=== PATIENT | female | born 1990 | race African-American/Black ===

== ENCOUNTER 2021-03-25 10:59 | Inpatient (IN) | payer OTHER, SELFPAY ==
[2021-03-25] VITALS (7 sets, daily range): BP systolic 105–149; BP diastolic 73–81; PULSE 88–118; RESP 16–20; TEMP 37.1–37.9; O2SAT 99–100; BMI 31.7
--- NOTE | ~2021-03-25 | US_ITS ---
EXAMINATION: US carotid duplex BI DATE: 03/25/2021 18:12 INDICATION: Altered mental status TECHNIQUE: Grayscale, color Doppler, and pulsed Doppler images of the cervical carotid arteries were obtained. The degree of vessel stenosis is placed in one of the following categories: normal, <50%, 5 0-69%, >=70% but less than near-occlusion, near-occlusion, or total occlusion. Note that percent sten osis relative to normal distal artery lumen diameter is indirectly measured from velocity measurement s as described by Cayden, et al. Radiology 2003; [id number]. COMPARISON: None. FINDINGS: The examination is essentially nondiagnostic due to patient inability to cooperate for imag e acquisition. RIGHT: The right common carotid artery (CCA) peak systolic velocity (PSV) is 111.6 cm/s. The right internal carotid artery, right ICA end-diastolic velocity (EDV), and right ICA/CCA PSV ratio are not measured. The external carotid artery (ECA) PSV is 102.3 cm/s. There is antegrade flow in the right vertebral artery. LEFT: The left CCA PSV is 191.9 cm/s. The right internal carotid artery, right ICA end-diastolic velocity ( EDV), and right ICA/CCA PSV ratio are not measured. The ECA PSV is 148 cm/s. There is antegrade flow in the left vertebral artery. IMPRESSION: Incomplete examination due to patient's inability to cooperate for image acquisition. Reviewed, dictated and finalized at location A. IMPRESSION: Incomplete examination due to patient's inability to cooperate for image acquis ition.
--- NOTE | ~2021-03-25 | XR_ITS ---
EXAMINATION: XR abdomen NG/feed tube insert INDICATION: Nasogastric tube placement TECHNIQUE: Portable AP KUB-[id number] at 1354 hours COMPARISON: CT, 03/26/2021 FINDINGS: The nasogastric tube is in the stomach. No airspace opacities are identified in the lungs. A cardiac monitoring device is implanted in the left chest wall. The bowel gas pattern is nonspecific . IMPRESSION: 1. Nasogastric tube in the stomach. Reviewed, dictated and finalized at location A.
--- NOTE | ~2021-03-25 | XR_ITS ---
EXAMINATION: XR chest 1V portable DATE: 04/02/2021 10:49 INDICATION: Tachycardia. TECHNIQUE: A single frontal view of the chest was obtained. COMPARISON: Chest CT 03/26/2021 FINDINGS: The chest demonstrates clear lungs without pneumonia, pleural effusion, or pneumothorax. Th e heart size is normal. There is an electronic implant in left anterior chest wall. There is a surgic al clip in right abdomen. IMPRESSION: 1. No acute cardiopulmonary disease. Reviewed, dictated and finalized at location A.
--- NOTE | ~2021-03-25 | US_ITS ---
EXAMINATION: US renal BI DATE: 03/25/2021 18:12 INDICATION: Worsening renal failure TECHNIQUE: Multiple grayscale and Doppler ultrasound images of the kidneys were obtained. COMPARISON: None. FINDINGS: There is limited visualization of the kidneys. The right kidney measures 7.8 x 4.4 x 4.1 cm . The left kidney measures 8.3 x 5.3 x 4.4 cm. The kidneys demonstrate normal parenchymal echogenicit y. There is no hydronephrosis. The bladder is decompressed by Thayer catheter. IMPRESSION: 1. Normal kidneys without hydronephrosis, limited examination. Reviewed, dictated and finalized at location A.
--- NOTE | ~2021-03-25 | NM_ITS ---
EXAMINATION: NM renal flow and function DATE: 03/28/2021 16:27 INDICATION: Acute kidney injury. TECHNIQUE: 6.6 mCi Tc-99m MAG3 was administered IV. The patient was scanned in the supine position. A posterior abdominal radionuclide angiogram was obtained. A subsequent time course of static images of the kidneys, ureters, and bladder was obtained. COMPARISON: CT abdomen and pelvis 03/26/2021 FINDINGS: The posterior abdominal radionuclide angiogram and sequential static images show normal siz e, position, and morphology of the kidneys. Peak renal parenchymal uptake was 6 min in right kidney a nd 6 min in left kidney (normal peak 3-5 minutes). The relative early renal uptake was 52% on the ri ght and 48% on the left (<40% is abnormal). No abnormalities of the ureters or bladder are seen. T1/2 for clearance of activity from the right kidney and proximal collecting system was >20 minutes. T1/2 for clearance of activity from the left kidney and proximal collecting system was >20 minutes. IMPRESSION: 1. Symmetric kidney function. 2. Delayed contrast clearance from both kidneys, consistent with decreased renal function. Reviewed, dictated and finalized at location B. IMPRESSION: 1. Symmetric kidney function. 2. Delayed contrast clearance from both kidneys, consistent with decreased ariadne al function.
--- NOTE | ~2021-03-25 | XR_ITS ---
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 TECHNIQUE: The procedure including the risks and benefits was discussed with the patient's grandmothe Silvia elizalde who provided consent for the procedure. Risks discussed included spinal headache, cereb rospinal fluid leak, bleeding, and infection. A timeout was performed to verify the patient's name, date of , and procedure to be performed. The skin overlying the L4-L5 level was prepped and dr aped in usual sterile fashion. Subcutaneous 1% lidocaine was used for local anesthesia. A 22 gauge spinal needle was advanced under fluoroscopic guidance. The needle was removed and the entry site was cleaned and dressed. There were no immediate complications. The patient was taken to the nursing ar moises for observation. FINDINGS: Real-time fluoroscopy demonstrates the needle at the L4-L5 level. Opening pressure was 13 c m water. (Normal range is variably defined as 6-20 cm water and up to 25 cm water in obese patients. Pressure >25 cm water is one of the modified Dandy criteria for idiopathic intracranial hypertension) . 15 mL of clear, colorless fluid was collected in 4 tubes. IMPRESSION: 1. Successful fluoro-guided lumbar puncture. Reviewed, dictated and finalized at location A.
--- NOTE | ~2021-03-25 | CT_ITS ---
EXAMINATION: CT chest abdomen pelvis wo con DATE: 03/26/2021 13:29 INDICATION: Altered mental status and nonverbal patient with pain response during physical exam of th e chest, abdomen and pelvis. TECHNIQUE: Computed tomography (CT) of the chest, abdomen, and pelvis was performed without intraveno us contrast. Iterative made to dose Yfn Automated exposure control and iterative reconstruction technique were employed. The dose-length product was 1752.75 mGy-cm. COMPARISON: None FINDINGS: CHEST CT: A couple small nodular opacity right lower lobe evaluation of which is limited by respiratory motion which limits evaluation of fine pulmonary parenchymal detail. No pulmonary edema, pleural effusion or pneumothorax. Heart size is normal. No pericardial effusion. Thoracic aorta is normal in caliber. No pathologically enlarged thoracic lymphadenopathy. Bones are unremarkable. ABDOMEN/PELVIS CT: Liver, gallbladder, spleen, pancreas, bilateral adrenal glands and kidneys are normal within the near ly decompressed bladder. Bowels including the appendix are normal. Thayer catheter within the nearly d ecompressed bladder which demonstrates some mild wall thickening. Anteverted uterus and bilateral adn exa are unremarkable. Very small amount of ascites in the deep pelvis. There is asymmetric mild thick ening of the left psoas muscle with some stranding in the immediately surrounding retroperitoneal fat . Bones are unremarkable. IMPRESSION: 1. Asymmetric thickening of the left psoas muscle with inflammatory stranding in the immediately cody cent lower abdominal/pelvic left retroperitoneal fat. Differential would include intramuscular hemato ma or abscess in the appropriate clinical setting. Evaluation is however limited by absence of intrav enous contrast. 2. A couple small nodular opacities dilation which is limited by respiratory motion. This could repre sent atelectasis or other nonspecific infectious or inflammatory process. Malignancy unlikely given p atient age. 3. Mild wall thickening in the partially decompressed bladder which contains a Thayer catheter. Correl ate with urinalysis to exclude urinary tract infection/cystitis. Reviewed, dictated and finalized at location A. IMPRESSION: 1. Asymmetric thickening of the left psoas muscle with inflammatory stranding i n the immediately adjacent lower abdominal/pelvic left retroperitoneal fat. Dif ferential would include intramuscular hematoma or abscess in the appropriate cl inical setting. Evaluation is however limited by absence of intravenous contras t. 2. A couple small nodular opacities dilation which is limited by respiratory mo tion. This could represent atelectasis or other nonspecific infectious or infla mmatory process. Malignancy unlikely given patient age. 3. Mild wall thickening in the partially decompressed bladder which contains a Thayer catheter. Correlate with urinalysis to exclude urinary tract infection/cy stitis.
--- NOTE | ~2021-03-25 | CT_ITS ---
EXAMINATION: CT brain wo con DATE: 03/25/2021 11:35 INDICATION: Altered mental status. History of moyamoya. TECHNIQUE: Computed tomography (CT) of the head was performed without intravenous contrast. The mA wa s adjusted according to patient size. Iterative reconstruction technique was employed. Exam dose: 60 5.33 mGy-cm total exam DLP. COMPARISON: None FINDINGS: Bilateral cerebrovascular infarcts involving the left frontal and right frontal parietal oc cipital areas. Chronic left thalamic lacunar infarct. Chronic right periventricular lacunar infarctio n. No intracranial mass lesion or hemorrhage is evident. No midline shift or mass effect. No subdural or epidural hematoma. Mucous retention cyst or polyp along the lateral wall of the right maxillary sinus. The paranasal sin uses and mastoid air cells otherwise are unremarkable. No fracture or bone destruction of the cranial vault. IMPRESSION: Bilateral cerebral infarcts, right greater than left No acute intracranial finding Reviewed, dictated and finalized at Location A. Reviewed, dictated and finalized at location B.
--- NOTE | ~2021-03-25 | US_ITS ---
EXAMINATION: US retroperitoneal comp DATE: 04/05/2021 12:38 INDICATION: Renal failure. TECHNIQUE: Multiple ultrasound grayscale images of the kidneys were obtained. COMPARISON: CT abdomen and pelvis 03/26/2021 FINDINGS: The right kidney measures 9.9 x 4.0 x 4.7 cm. The left kidney measures 10.7 x 4.4 x 4.4 cm. The kidne ys demonstrate normal parenchymal echogenicity. There is no hydronephrosis. The bladder is decompress ed by a Thayer catheter. IMPRESSION: 1. Normal kidneys. No hydronephrosis. Reviewed, dictated and finalized at location A.
--- NOTE | ~2021-03-25 | MR_ITS ---
EXAMINATION: MR brain/brain stem wo con DATE: 03/27/2021 10:52 INDICATION: Stroke. Moyamoya. Central nervous system infection. TECHNIQUE: Magnetic resonance imaging (MRI) of the brain and brainstem was performed without intraven ous contrast. Sequences included sagittal and axial T1-weighted SE, axial diffusion-weighted FS SE, a xial T2*-weighted GRE, axial T2-weighted FLAIR, and axial T2-weighted FSE. Apparent diffusion coeffic ient (ADC) maps were created. COMPARISON: CT dated 03/25/2021 FINDINGS: Multiple small regions of restricted diffusion aspect of the lentiform nucleus. Consistent with acute infarct in the paramedian left frontal lobe and arnold radiata as well as the head of the left cauda te nucleus and adjacent anterior limb of the left internal capsule and anterior left basal ganglia. E ncephalomalacia associated with distal chronic infarcts in the bilateral frontal and right parietal a nd occipital lobes. The distribution involving primarily the watershed zones would be consistent with given history of moyamoya disease. Additional small old lacunar infarcts at the right cerebellar hem isphere and at the left thalamus. No intracranial hemorrhage or abnormal intracranial mass lesion. Th ere are scattered areas of nonspecific increased T2-weighted signal intensity in the cerebral white m atter, predominantly involving the deep and periventricular white matter. There are no intraparenchym al signal abnormalities seen on the other pulse sequences. The ventricles are symmetric and normal in size. There are no abnormal extra-axial fluid collections. Flow voids are seen in the cerebral arter ies on the T2-weighted sequences consistent with their expected patency. Mucous retention cyst in the right maxillary sinus. Visualized orbits and soft tissues are unremarkable. IMPRESSION: 1. Multiple small acute infarction the left frontal lobe and basal ganglia. 2. Encephalomalacia consistent with additional chronic infarcts in the right cerebellar hemisphere, l eft thalamus and left frontal and right frontal, parietal and occipital lobes. Reviewed, dictated and finalized at location A. IMPRESSION: 1. Multiple small acute infarction the left frontal lobe and basal ganglia. 2. Encephalomalacia consistent with additional chronic infarcts in the right ce rebellar hemisphere, left thalamus and left frontal and right frontal, parietal and occipital lobes.
[2021-03-25 11:09] LABS: Glucose Point of Care 89 mg/dl (65-105)
--- NOTE | 2021-03-25 11:10 | PC.NURSE ---
Accuheck 89. Pt opens eyes to speech, withdraws from pain, moans and contracts. Arrives with Thayer catheter, urine in tube appears cloudy and thick. Pt is diaphoretic, afebrile
[2021-03-25 11:58] LABS: Basophils Percent Auto 0.2 % (0.2-1.2); Eosinophils Percent Auto 0.1 % (0-4.4); Hematocrit 29.8 % (37.0-47.0); Hemoglobin 9.5 g/dL (12.0-15.0); Immature Granulocyte Absolute 0.07 K/mm3 (0.00-0.031); Immature Granulocyte Percent A 0.5 % (0-0.5); Lymphocytes Absolute Auto 2.52 K/mm3 (0.9-3.2); Lymphocytes Percent Auto 18.8 % (18.3-44.2); Mean Corpuscular HGB Conc 31.9 g/dl (32-36); Mean Corpuscular Hemoglobin 28.8 pg (26-34); Mean Corpuscular Volume 90.3 fl (80-100); Mean Platelet Volume 9.7 fl (7.4-10.4); Monocytes Absolute Auto 0.7 K/mm3 (0.1-0.6); Monocytes Percent Auto 4.9 % (2.6-8.5); Neutrophils Absolute Auto 10.1 K/mm3 (1.3-6.7); Neutrophils Percent Auto 75.5 % (45.5-73.1); Platelet Count Result 395 k/mm3 (150-375); Red Cell Distribution Width 13.5 % (11.5-14.5); White Blood Count 13.4 K/mm3 (4.5-10.0)
[2021-03-25 12:08] LABS: Alanine Aminotransferase 30 U/L (4-35); Alkaline Phosphatase 98 U/L (38-126); Anion Gap 7 mmol/L (8-16); Aspartate Amino Transferase 43 U/L (14-36); Bilirubin,Total 0.2 mg/dL (0.2-1.3); Blood Urea Nitrogen 39 mg/dL (7-17); Calcium 9.2 mg/dL (8.4-10.2); Carbon Dioxide 17 mmol/L (22-30); Chloride 114 mmol/L (98-107); Estimated Glomerular Filt Rate 16; Glucose 90 mg/dL (65-105); Potassium 4.7 mmol/L (3.4-5.0); Sodium 138 mmol/L (137-145)
[2021-03-25 12:09] LABS: Prothrombin Time 13.9 Seconds (11.1-14.7)
[2021-03-25 12:59] LABS: Add Urine Microscopic? YES; Appearance Urine Cloudy (Clear); Bacteria Urine Trace /hpf; Bilirubin Urine Negative (Negative); Blood Urine 2+ (Negative); Color Urine Yellow (Yellow); Glucose Urine UA 1+ mg/dL (Negative); Ketones Urine Trace mg/dL (Negative); Leukocyte Esterase Ur Negative LEU/UL (Negative); Mucus Urine Rare /lpf; Nitrate Urine Negative (Negative); Protein Urine 3+ mg/dL (Negative); Specific Grav Ur 1.025 (1.001-1.035); Squamous Epithelial Cell Urine Occasional /hpf (Few); Urobilinogen Urine Negative mg/dL (<2.0); WBC Urine 16-20 /hpf
[2021-03-25 13:26] LABS: Glucose Point of Care 108 mg/dl (65-105)
--- NOTE | 2021-03-25 14:14 | ED.AMS ---
HPI - Altered Mental Status General Chief Complaint: Altered Mental Status Stated Complaint: altered Time Seen by Provider: 03/25/21 11:15 Source: patient Mode of arrival: EMS Limitations: no limitations History of Present Illness HPI narrative: 30[facility] with a history of CVA secondary moyamoya disease, CKD was [facility] a [facility] with altered mental status as per the [facility] patient is usually alert communicative but since this morning she was found to be altered. Patient is unable to answer any questions. complaint: altered mental status Onset (ago): day(s) (1) Timing confirmed by: caregiver Related Data Allergies Allergy/AdvReac Type Severity Reaction Status Date / Time peanut Allergy Unknown Verified 03/25/21 11:10 Review of Systems Review of Systems: ROS unobtainable: Yes unobtainable due to mental status Exam Narrative: Exam Narrative: GENERAL: ill-appearing, well-nourished, diaphoretic HEAD: Normocephalic, atraumatic. EYES: PERRLA and EOMI. ENT: Nares clear, no rhinorrhea or epistaxis. Mucous membranes moist. NECK: Supple. CHEST: Clear to auscultation. No respiratory distress. HEART: Regular rate and rhythm. No murmur heard. Normal peripheral pulses. ABDOMEN: Soft, nontender, nondistended, normal active bowel sounds. EXTREMITIES: Normal range of motion. No edema. SKIN: Warm, dry, no rash. NEURO:has hemipresis . PSYCH: Normal mood and affect. Course Course Emergency Course: We did call the [facility] and obtain baseline history from the [facility] staff although they tell us that patient is communicative but she is nonambulatory. Do not have any old records to compare or to get history. I discussed with Jessica the nurse practitioner will admit her and have neuro evaluate her for possible stroke Vital Signs Vital signs: Vital Signs Temperature 37.1 C 03/25/21 10:57 Pulse Rate 90 03/25/21 10:57 Respiratory Rate 20 03/25/21 10:57 Blood Pressure 125/78 03/25/21 10:57 Pulse Oximetry 100 03/25/21 10:57 Temperature 37.3 C 03/25/21 13:30 Pulse Rate 95 03/25/21 14:24 Respiratory Rate 19 03/25/21 14:24 Blood Pressure 105/73 03/25/21 14:24 Pulse Oximetry 100 03/25/21 14:24 MDM - Altered Mental Status Lab Data Result diagrams: 03/25/21 11:50 03/25/21 11:50 Labs: Lab Results 03/25/21 03/25/21 03/25/21 Range/Units 11:06 11:50 11:50 WBC 13.4 H (4.5-10.0) K/mm3 RBC 3.30 L (4.2-5.4) M/mm3 Hgb 9.5 L (12.0-15.0) g/dL Hct 29.8 L (37.0-47.0) % MCV 90.3 (80-100) fl MCH 28.8 (26-34) pg MCHC 31.9 L (32-36) g/dl RDW 13.5 (11.5-14.5) % Plt Count 395 H (150-375) k/mm3 MPV 9.7 (7.4-10.4) fl Immature Gran % (Auto) 0.5 (0-0.5) % Neut % (Auto) 75.5 H (45.5-73.1) % Lymph % (Auto) 18.8 (18.3-44.2) % [place] % (Auto) 4.9 (2.6-8.5) % Eos % (Auto) 0.1 (0-4.4) % Baso % (Auto) 0.2 (0.2-1.2) % Lymph # (Auto) 2.52 (0.9-3.2) K/mm3 [place] # (Auto) 0.7 H (0.1-0.6) K/mm3 Eos # (Auto) 0.0 (0-0.3) K/mm3 Baso # (Auto) 0.0 (0.0-0.1) K/mm3 Abs Immat Gran (auto) 0.07 H (0.00-0.031) K/mm3 Absolute Neuts (auto) 10.1 H (1.3-6.7) K/mm3 Absolute Nucleated RBC 0.0 (0.0-0.012) K/mm3 Nucleated RBC % 0.0 (0.0-0.2) % PT 13.9 (11.1-14.7) Seconds INR 1.0 Sodium (137-145) mmol/L Potassium (3.4-5.0) mmol/L Chloride (98-107) mmol/L Carbon Dioxide (22-30) mmol/L Anion Gap (8-16) mmol/L BUN (7-17) mg/dL Creatinine (0.7-1.0) mg/dL Estim Creat Clear Calc Estimated GFR (59 - ) Glucose (65-105) mg/dL POC Capillary Glucose 89 (65-105) mg/dl Calcium (8.4-10.2) mg/dL Total Bilirubin (0.2-1.3) mg/dL AST (14-36) U/L ALT (4-35) U/L Alkaline Phosphatase (38-126) U/L Total Protein (6.3-8.2) g/dL Albumin (3.5-5.1) g/dL Urine Color (Yellow)
--- NOTE | 2021-03-25 14:28 | ECG_ITS ---
Measurements Intervals [place] Rate: 89 P: 59 MA: 169 QRS: 34 QRSD: 93 T: 17 QT: 384 QTc: 469 Interpretive Statements SINUS RHYTHM BASELINE ARTIFACT- II, III, AVF, V3-V6 NORMAL ECG Electronically Signed On 03-25-2021 14:36:55 CDT by Moiz Singh D.O.
[2021-03-25] MEDS: SODIUM CHLORIDE 0.9% IV 1,000 ML 125 ML IV CONT (15:56)
--- NOTE | 2021-03-25 16:30 | ADMGEN ---
This patient, Jorge Alberto Saldaña, was admitted to Medical Room 349-01. Patient/family oriented to hospital policies and general routines including ID bracelet, bed and alarms, visiting hours, pain management, procedures, bathroom and other care routines, personal items, smoking policy, room service/diet, and visiting hours. Information on how to activate the Rapid Response Team has been discussed. Patient/Family are encouraged to report perceived risks to care and to ask questions if they do not understand what they are told or what they should do.
--- NOTE | 2021-03-25 16:42 | PM.IMHP ---
H&P: HPI History of Present Illness Date/Time: 03/25/21 16:42 this is a 30-year-old female patient from [facility] with the past medical history of a CVA with left side it hemo plegia. The patient is typically alert and orientated x4 according to the correction. Today she is nonverbal and she is yelling out loudly. She is very anxious and tachycardic. Patient is also diaphoretic. Her blood sugar was checked and she was in the 100s. CT of the brain was read as bilateral cerebral infarcts, right greater than the left. No acute intracranial finding. Left arm and leg or flaccid. Patient has limited movement to her right arm and right leg. She typically takes an aspirin at the correction. White count 13.4. H&H is 9.5 and 29.8. Patient's BUN is 39 creatinine is 4.10 GFR 16. The patient is nonverbal some unable to obtain any information. I am reviewing her records from [facility]. Patient creatinine from yesterday was 3.0 from the correction in BUN 33. It looks like her GFR was 22 there at the correction. Her A1c from yesterday was 8.1. The patient is being admitted to inpatient services on the date of service of 03/25/2021 Chief Complaint: Altered mental status Review of Systems Review of Systems: ROS unobtainable: Yes unobtainable due to mental status PMFSH Past Medical History Medical History (Updated 03/25/21 @ 17:23 by Jessica Freire NP) Chronic kidney disease Depression Finger amputation, no complication History of CVA (cerebrovascular accident) Hypertension Insulin dependent diabetes mellitus Last hemoglobin A1c 8.1 Moyamoya disease Family History Family History (Updated 03/25/21 @ 17:24 by Jessica Freire NP) Mother Diabetes mellitus ESRD (end stage renal disease) Social History Social History (Updated 03/25/21 @ 17:02 by Jessica Freire NP) Social History: The patient [facility]. Silvia zapata is listed as her advance directive healthcare proxy. The patient is listed as a full code. She is disabled. She is single never . No children. Smoking status is unknown. Meds Home Medications and Allergies Allergies Allergy/AdvReac Type Severity Reaction Status Date / Time peanut Allergy Unknown Verified 03/25/21 11:10 Vital Signs Vital Signs - 24 hr 03/25/21 10:57 03/25/21 12:42 03/25/21 13:30 Temperature 37.1 C 37.3 C Pulse Rate 90 88 98 Respiratory Rate 20 17 16 Blood Pressure 125/78 117/77 120/81 Pulse Oximetry 100 100 99 03/25/21 14:24 Temperature Pulse Rate 95 Respiratory Rate 19 Blood Pressure 105/73 Pulse Oximetry 100 Exam Const: General: cooperative, alert, awake, Physically active and anxious Nutritional Appearance: overweight Orientation/consciousness: confusion Limitations: altered mental status HENMT: Head: normal to inspection, No palpable skull fracture present, normocephalic and atraumatic Ears: hearing grossly normal bilaterally and external ears normal General nose exam: Normal external nose present Eyes: General: appearance normal, both eyes and all related structures Alignment and Position: alignment normal Periorbital: periorbital findings normal Eyelids: eyelids normal Conjunctivae: conjunctivae normal Sclera: sclerae normal Cornea: corneas normal Pupils: Equal, round and reactive pupils present Neck: Neck: normal visual inspection Resp: Effort & Inspection: normal respiratory effort Auscultation: clear to auscultation bilaterally Cardio: Palpation: normal PMI Rate: regular rate Rhythm: regular rhythm Heart sounds: S1 normal heart sound present and S2 normal heart sound present Peripheral pulses: Peripheral pulses 2+ throughout GI: Inspection: normal to inspection Percussion: Yes normal to percussion Auscultation: normal bowel sounds Rectal Exam: deferred Skin: General skin exam: normal color Lesions: no lesions Rashes: no rashes Trauma: no lacerations
--- NOTE | 2021-03-25 18:31 | PM.CNNEP ---
Assessment and Plan Assessment and plan (1) Chronic kidney disease: Code(s): N18.9 - Chronic kidney disease, unspecified Status: Chronic Assessment and Plan: this patient has a diagnosis of chronic kidney disease stage IIIB. We do not have any old records but this is going by the problem list in the [facility] records. Her ultrasound looks fine. I am not sure if her creatinine is higher than her baseline. I would guess that it is since her GFR here is 16 and her baseline GFR should be somewhere between 30 and 45. It is possible that she is dehydrated because she would have poor intake from her strokes. Her chest x-ray is clear. Her blood pressure is well controlled. She might have rhabdomyolysis so will check a CPK. She could have some vascular issues in her renal arteries because of her moyamoya disease. she does have a mildly high AST but this is nonspecific. she could have obstruction so an ultrasound is being checked. We will check a renal scan. She just got an ultrasound of the kidneys. Will check urine electrolytes and eosinophils. I am going to try giving her some IV fluids. We will see how her creatinine is in the morning. (2) Hypertension: Code(s): I10 - Essential (primary) hypertension Status: Chronic Assessment and Plan: Her blood pressure is well controlled (3) History of CVA (cerebrovascular accident): Code(s): Z86.73 - Personal history of transient ischemic attack (TIA), and cerebral infarction without residual deficits Status: Inactive Assessment and Plan: she has new left-sided weakness and several strokes on her CT scan (4) Moyamoya disease: Code(s): I67.5 - Moyamoya disease Status: Chronic Assessment and Plan: this involves her carotid arteries and possibly other arteries. (5) Insulin dependent diabetes mellitus: Status: Chronic Assessment and Plan: Per hospitalist. History of Present Illness Reason for Consult Consult date: 03/25/21 Chief Complaint Chief complaint: ALTERED MENTAL STATUS History of Present Illness Narrative: Jorge Alberto Is an unfortunate 30-year-old lady who has moyamoya disease, chronic kidney disease, depression, finger amputation, strokes, hypertension, diabetes. [facility]. While there the patient was found to have left-sided weakness and decreased level of consciousness. She was sent to the emergency room and evaluated. She was found to have another stroke. She still does not interact now. the patient was found to have a higher creatinine than usual. it is unknown what her baseline creatinine is but the diagnosis list at the halfway Shows CKD stage IIIB. yesterday her creatinine was 3.0 at the halfway. She cannot give a history. There is no mention of urinary issues. there was no medicine list that came from the halfway. In the ER her blood pressure was fine. Her renal ultrasound shows normal kidneys without hydronephrosis. CT of the head shows bilateral infarcts, right greater than left. Her CBC shows mild anemia. Her urinalysis shows protein glucose and blood, and her chemistry show high BUN creatinine and low bicarbonate with a normal anion gap. Review of Systems Review of Systems: ROS unobtainable: Yes unobtainable due to mental status PMF Past Medical History Medical History (Updated 03/25/21 @ 18:42 by Crow Lomeli MD) Chronic kidney disease Depression Finger amputation, no complication History of CVA (cerebrovascular accident) Hypertension Insulin dependent diabetes mellitus Last hemoglobin A1c 8.1 Moyamoya disease Family History Family History Mother Diabetes mellitus ESRD (end stage renal disease) Social History Social History Social History: T
[2021-03-25] MEDS: SODIUM BICARBONATE 8.4% 150 MEQ in WATER, STERILE FOR INJECTION 950 ML 75 MEQ IV CONT (19:26)
[2021-03-25 20:17] LABS: Creatine Kinase 1343 U/L (30-135)
[2021-03-25 21:20] LABS: Eosinophil Urine Rare % (None Seen)
[2021-03-25 21:52] LABS: Creatinine Urine 222.2 mg/dL
[2021-03-25 22:30] LABS: Sodium Urine Random 45 meq/L
[2021-03-25 22:31] LABS: Total Protein Urine Random > 600 mg/dL
[2021-03-25] MEDS: LORazepam INJ (*CRX) 2 MG/ML VIAL 0.5 MG IV PUSH (22:42)
[2021-03-25] MEDS: MORPHINE SULFATE (*CRX) 2 MG/ML INJ IV PUSH (22:43)
[2021-03-25 23:14] LABS: Glucose Point of Care 96 mg/dl (65-105)
[2021-03-26] VITALS (12 sets, daily range): BP systolic 158–175; BP diastolic 76–83; PULSE 89–150; RESP 18–26; TEMP 36.1–36.9; O2SAT 94–100
--- NOTE | 2021-03-26 | ECHO_ITS ---
Patient Info Name: Jorge Alberto Saldaña Age: 30 years : 1990 Gender: Female Ht: 67 in Wt: 208 lbs BSA: 2.14 m2 HR: 98 bpm BP: 162 / 82 mmHg Heart Rhythm: Sinus Rhythm Technical Quality: Good Exam Date: 03/26/2021 8:27 AM Exam Location: [facility] Pulmonary Exam Room: 349 Patient Status: Inpatient Admit Date: 03/25/2021 Staff Ordering Physician: Jessica Freire NP Switch Operator: Shannon Ruiz RDCS Attending Provider: Ana Luisa Mathews MD Referring Physician: Mouna CARTAGENA; Exam Type: CA echo doppler color flow Study Info Indications - HXO CVA Complete two-dimensional, color flow and Doppler transthoracic echocardiogram is performed. Summary 1. Complete two-dimensional, color flow and Doppler transthoracic echocardiogram is performed. 2. There is trace mitral valve regurgitation. 3. Otherwise normal examination. 4. No likely cardioembolic source was identified. Left Ventricle Left ventricular chamber dimension is normal. Left ventricular systolic function is normal, estimated at 65-70%. The left ventricular diastolic function is normal. Right Ventricle Right ventricular chamber dimension is normal. Left Atria Left atrial chamber dimension is normal. Right Atria Right atrial chamber dimension is normal. Aortic Valve The aortic valve is normal. Pulmonic Valve The pulmonic valve is normal. Mitral Valve The mitral valve has normal leaflets. There is trace mitral valve regurgitation. Tricuspid Valve The tricuspid valve leaflets are normal. Pericardium/Pleural The pericardium appears normal. Aorta The aortic root size at the sinus of Valsalva is normal. Left Ventricular Outflow Tract Name Value Normal LVOT 2D LVOT Diameter 2.0 cm LVOT Doppler LVOT Peak Gradient 6 mmHg LVOT Mean Gradient 3 mmHg LVOT VTI 24 cm LVOT VTI/AV VTI Ratio 0.9 LVOT Stroke Volume 77 ml LVOT CO 15.9 l/min LVOT CI 7.4 l/min/m2 Pulmonic Valve Name Value Normal PV Doppler PV Peak Gradient 4 mmHg Mitral Valve Name Value Normal MV Doppler MV Decel Pitkin 944 cm/s2 MV PHT 40 ms MV Area (PHT) 5.5 cm2 4.0-5.0 MV Diastolic Function MV E Peak Velocity 131 cm/s
[2021-03-26] MEDS: LABETALOL HCL INJ 100 MG/20 ML VIAL IV PUSH (01:12)
[2021-03-26] MEDS: LORazepam INJ (*CRX) 2 MG/ML VIAL 0.5 MG IV PUSH ×2 (01:30→05:42)
[2021-03-26] MEDS: MORPHINE SULFATE (*CRX) 2 MG/ML INJ IV PUSH ×4 (04:12→20:49)
[2021-03-26 06:32] LABS: Glucose Point of Care 102 mg/dl (65-105)
[2021-03-26 06:54] LABS: Basophils Absolute Auto 0.1 K/mm3 (0.0-0.1); Basophils Percent Auto 0.3 % (0.2-1.2); Eosinophils Percent Auto 0.1 % (0-4.4); Hemoglobin 9.3 g/dL (12.0-15.0); Immature Granulocyte Absolute 0.09 K/mm3 (0.00-0.031); Immature Granulocyte Percent A 0.6 % (0-0.5); Lymphocytes Absolute Auto 3.74 K/mm3 (0.9-3.2); Mean Corpuscular HGB Conc 32.1 g/dl (32-36); Mean Corpuscular Hemoglobin 28.4 pg (26-34); Mean Corpuscular Volume 88.4 fl (80-100); Mean Platelet Volume 10.3 fl (7.4-10.4); Monocytes Absolute Auto 1.1 K/mm3 (0.1-0.6); Monocytes Percent Auto 6.9 % (2.6-8.5); Neutrophils Absolute Auto 11.2 K/mm3 (1.3-6.7); Neutrophils Percent Auto 69.1 % (45.5-73.1); Platelet Count Result 451 k/mm3 (150-375); Red Blood Count 3.28 M/mm3 (4.2-5.4); Red Cell Distribution Width 13.5 % (11.5-14.5); White Blood Count 16.2 K/mm3 (4.5-10.0)
[2021-03-26 07:11] LABS: Anion Gap 11 mmol/L (8-16); Blood Urea Nitrogen 46 mg/dL (7-17); Carbon Dioxide 16 mmol/L (22-30); Chloride 110 mmol/L (98-107); Estimated CRCL calculation 23 ml/min; Estimated Glomerular Filt Rate 16; Glucose 102 mg/dL (65-105); Phosphorus 5.3 mg/dL (2.5-4.5); Potassium 4.4 mmol/L (3.4-5.0); Sodium 137 mmol/L (137-145)
[2021-03-26] MEDS: diazePAM INJ (*CRX) 10 MG/2 ML SYRINGE 5 MG IV PUSH ×2 (08:43→16:54)
[2021-03-26] MEDS: SODIUM BICARBONATE 8.4% 150 MEQ in WATER, STERILE FOR INJECTION 950 ML 75 MEQ IV CONT (08:49)
[2021-03-26] MEDS: ASPIRIN 300 MG SUPPOSITORY RECTAL (08:52)
--- NOTE | 2021-03-26 09:05 | PM.IMPN ---
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 I will continue with her aspirin but I will make it a rectal suppository. Neurology has been consulted. The patient is nonverbal. But the [facility] stated that the patient is usually talkative. I did speak with her grandmother juliana zapata who stated the patient is usually talkative. The patient is flaccid on the left upper and lower extremity which is old and she has limited movement to the right side now. We will follow-up with the MRI, carotid Dopplers, and an echo. PT OT and speech therapy consults have been placed. Swallow study has also been ordered as well. Will do Accu-Cheks every 6 hours with sliding scale insulin. Last A1c was noted to be 8.1. Her medications are on hold at this time she is NPO until we can get a swallow study. P.r.n. hydralazine with parameters. Her diabetes she should have lower blood pressures however she is possibly having a stroke we need to keep them at higher level. No other family members are noted to have this disease. This was diagnosed approximately a year and a half ago. I am not sure if this is related to her moyamoya ER visits related to her diabetes. Patient's last great and was 3.0 and is now 4.1. Patient's GFR son to 16 from . We will get a renal ultrasound. Looks like she is stage IV. 03/26/21 nephro note reviewed and pt w JUVENTINO on CKD 3, MRI w contrast changed to MRI brain non con, NPO at this time,. ST eval and possible NGT if mental status does not improve, Patient reported alert and oriented x3 prior to admission she is nowhere near his baseline at the time of my evaluation today. I have ordered LP in addition to MRI as she lives in a penitentiary and ENVIRONMENTAL SERVICES COORDINATOR infection is in differential. Additionally, I have ordered Keppra as she appears to be seizing which could be secondary to new CVA. cont current care. neurology contacted via telephone recommendations appreciated. patient appears to be in discomfort with palpation of the left abdomen will order CT chest abdomen pelvis as she is nonverbal at this time With tachycardia and appears to have source of pain. Subjective Date/time seen: 03/26/21 09:05 Patient remains unresponsive appears to be posturing. etiology remains unclear likely Moyamoya related CVA versus ENVIRONMENTAL SERVICES COORDINATOR infection vs seizure Exam Narrative: Exam Narrative: GEN: opens eyes but does not track And is nonverbal HEENT: NCAT, MMM, appears to have slow nystagmus Neck: no JVD Heart: S1S2 tachycardia Lungs: CTA B/l Abd: soft, ND, bowel sounds normoactive, left abdomen tender to palpation Ext: no cyanosis, no clubbing, no edema Neuro: opens eyes to voice does not follow commands appears to posture appears to be in pain but does not withdraw from noxious stimuli Psych: unable to evaluate Objective Data Vital Signs Vital Signs: Vital Signs - 24 hr 03/25/21 10:57 03/25/21 12:42 03/25/21 13:30 Temperature 98.7 F 99.2 F Pulse Rate 90 88 98 Respiratory Rate 20 17 16 Blood Pressure 125/78 117/77 120/81 Pulse Oximetry 100 100 99 03/25/21 14:24 03/25/21 20:00 03/25/21 20:10 Temperature 100.3 F H Pulse Rate 95 118 H 118 H Respiratory Rate 19 20 Blood Press
--- NOTE | 2021-03-26 10:00 | PM.PNNEP ---
Progress Note: A&P Assessment and Plan (1) Chronic kidney disease: Code(s): N18.9 - Chronic kidney disease, unspecified Status: Chronic Assessment and Plan: this patient has a diagnosis of chronic kidney disease stage IIIB Per senior care records. Her ultrasound is normal. Urinalysis has blood protein and sugar. Urine electrolytes are pre renal. Proteinuria suggests a component of diabetes affecting the kidneys. Hypertension and vascular disease are also possible. She probably has an aspect of acute kidney injury. Urine electrolytes are pre renal renal scan is ordered. CPK is mildly high. This level of CPK is generally not high enough to cause kidney disease but she does have some blood in the urine which may be spill over of the enzyme. With this in mind, will follow the CPK and she is getting bicarb any way. will continue IV fluids with bicarbonate. Check labs in the morning (2) Hypertension: Code(s): I10 - Essential (primary) hypertension Status: Chronic Assessment and Plan: Her blood pressure is well controlled this is creeping up. 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 (5) Insulin dependent diabetes mellitus: Status: Chronic Assessment and Plan: Per hospitalist. Subjective Date/time seen: 03/26/21 10:00 Interval history: patient is unchanged. Not responsive. Eyes closed. Review of Systems Review of Systems: ROS unobtainable: Yes unobtainable due to mental status Exam Narrative: Exam Narrative: WDWN in NAD skin no rash head ncat lungs clear cor reg no rub abd BS+ nontender and soft ext no edema. Objective Data Vital Signs Vital Signs: Vital Signs - 24 hr 03/25/21 10:57 03/25/21 12:42 03/25/21 13:30 Temperature 37.1 C 37.3 C Pulse Rate 90 88 98 Respiratory Rate 20 17 16 Blood Pressure 125/78 117/77 120/81 Pulse Oximetry 100 100 99 03/25/21 14:24 03/25/21 20:00 03/25/21 20:10 Temperature 37.9 C H Pulse Rate 95 118 H 118 H Respiratory Rate 19 20 Blood Pressure 105/73 149/79 H Pulse Oximetry 100 99 03/25/21 20:40 03/26/21 00:00 03/26/21 01:12 Temperature 37.3 C Pulse Rate 101 H 150 H Respiratory Rate Blood Pressure Pulse Oximetry 03/26/21 04:00 03/26/21 05:42 Temperature 36.1 C L Pulse Rate 122 H 114 H Respiratory Rate 18 Blood Pressure 158/83 H Pulse Oximetry 100 Intake/Output Intake/Output: Intake & Output 03/23/21 03/24/21 03/25/21 03/26/21 23:59 23:59 23:59 23:59 Intake Total 397 1100 Output Total 325 550 Balance 72 550 Meds/Results Medications: Active Medications Generic Name Dose Route Start Last Admin Trade Name Freq PRN Reason Stop Dose Admin Aspirin 300 mg 03/26/21 09:00 03/26/21 08:52 Aspirin 300 Mg Suppository RECTAL 300 mg DAILY RYLIE Administration Dextrose 12.5 gm 03/25/21 16:45 Dextrose 50% 25 Gm/50 Ml Syringe IV PUSH PRN PRN Hypoglycemia Protocol Diazepam 5 mg 03/26/21 09:00 03/26/21 08:43 Diazepam Inj (*Crx) 10 Mg/2 Ml Syringe IV PUSH 5 mg Q8H RYLIE Administration Glucagon 1 mg 03/25/21 16:45 Glucagon For Inj 1 Mg Vial IM PRN PRN Hypoglycemia Protocol Glucose 15 gm 03/25/21 16:45 Glucose Oral Gel 15 Gm Of Glucse In 37.5 Gm Tube PO PRN PRN Hypoglycemia Protocol Hydralazine HCl 10 mg 03/25/21 17:36 Hydralazine Hcl 20 Mg/Ml Vial IV PUSH Q8H PRN Blood Pressure - High Dextrose 1,000
--- NOTE | 2021-03-26 11:11 | PCSTNOTE ---
Attempted to see patient for communication evaluation at bedside. Patient was not alert and per RN not following directions. Discussed this with RN and physician and determined that patient not appropriate to participate in communication evaluation or MBS study this date. Plan to follow-up with patient on 03/27/21 to assess ability to participate and complete evaluations if able.
[2021-03-26 11:15] LABS: Glucose Point of Care 106 mg/dl (65-105)
--- NOTE | 2021-03-26 12:39 | PCOTNOTE ---
Hold patient this date as patient is unable to follow commands, keeps eyes closed, and is non-verbal. Will attempt OT evaluation at later time if cognition/responsiveness improves and patient is medically appropriate.
--- NOTE | 2021-03-26 13:50 | PCPTNOTE ---
Patient on hold. Nurse, care coordination, physician and OT all agree that patient status is not appropriate for therapy evaluation at this time. Will review status tomorrow.
--- NOTE | 2021-03-26 13:58 | WPDNEURCNPN ---
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 Status: Chronic (3) Hypertension: Code(s): I10 - Essential (primary) hypertension Status: Chronic (4) Insulin dependent diabetes mellitus: Status: Chronic (5) Altered mental status: Qualifiers: Altered mental status type: unspecified Qualified Code(s): R41.82 - Altered mental status, unspecified Code(s): R41.82 - Altered mental status, unspecified Status: Acute Additional Plan bihemispheric stroke underlying significant renal disease but clinical neurological examination is compatible with significant neurological deficit for the medical evaluations being carried out possibility of the extension of the stroke is always likely evaluation is being carried out for any treatable reason Consult date: 03/26/21 Time Seen: 13:00 HPI: Jorge Alberto Saldaña is a 30 [facility] being nonverbal and yelling out loud along with the tachycardia and diaphoresis a blood sugar at the time was 100s left upper and left lower extremities were flaccid with limited movements of the right upper and right lower extremity BUN was 39 creatinine 4.10 with GFR of only 16 myoglobin 9.5 her hemoglobin A1c yesterday was 8.1. Patient carries the diagnosis of left hemiplegia secondary to cerebrovascular accident in addition to the ongoing history of 1. Chronic kidney disease 2. Hypertension 3. Insulin-dependent diabetes mellitus 4. 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 pertinent investigations up until now include CBC with leukocytosis hemoglobin 9.3, platelet count 451 basic metabolic panel with BUN of 46 creatinine of 4.0 estimated GFR only 16 and phosphorus 5.3 UA abnormal with 16 to 20 WBCs 1+ glucose 3+ protein initial CT scan documented bilateral infarct involving the left frontal and right frontal parietal occipital lobes in addition to chronic left thalamic lacunar infarct and chronic right periventricular lacunar infarct but no evidence of bleed echocardiogram is being done carotid Doppler study is incomplete because of the lack of cooperation and K[place] ultrasound is with normal kidneys without hydronephrosis but the exam is limited she has already been seen by the correctional medicine physician chronic kidney disease with considering the possibility of increasing vascular problem because of underlying moyamoya disease, possible increasing dehydration Review of Systems Review of Systems: All systems reviewed & are unremarkable except as noted in HPI and below PMFSH Past Medical History Medical History Chronic kidney disease Depression Finger amputation, no complication History of CVA (cerebrovascular accident) Hypertension Insulin dependent diabetes mellitus Last hemoglobin A1c 8.1 Moyamoya disease Family History Family History Mother Diabetes mellitus ESRD (end stage renal disease) Social History Social History Social History: The patient lives at [facility]. Silvia zapata is listed as her advance directive healthcare proxy. The patient is listed as a full code. She is disabled. She is single never . No children. Smoking status is unknown. Smoking status: Never smoker Spiritual care concerns: No Meds Home Medications and Allergies Home Medications Medication Instructions Recorded Confirmed Type Adult Low Dose Aspirin 81 mg PO DAILY 03/25/21 03/25/21 History Blue-Emu Lidocaine Patch 1 patch DAILY 03/25/21 03/25/21 History Humalog U-100 Insulin 5 units SUBCUT TIDWM 03/25/21 03/25/21 History Lantus Solostar U-100 Insulin 10 units SUBCUT HS 03/25/21 03/25/21 History Miralax 17 g
[2021-03-26] MEDS: METOPROLOL TARTRATE INJ 5 MG/5 ML VIAL 2.5 MG IV PUSH (14:48)
[2021-03-26 15:09] LABS: Hematocrit 28.1 % (37.0-47.0); Hemoglobin 9.1 g/dL (12.0-15.0); Mean Corpuscular HGB Conc 32.4 g/dl (32-36); Mean Corpuscular Hemoglobin 28.6 pg (26-34); Mean Corpuscular Volume 88.4 fl (80-100); Mean Platelet Volume 9.8 fl (7.4-10.4); Platelet Count Result 420 k/mm3 (150-375); Red Blood Count 3.18 M/mm3 (4.2-5.4); Red Cell Distribution Width 13.8 % (11.5-14.5)
[2021-03-26 16:57] LABS: Glucose Point of Care 91 mg/dl (65-105)
--- NOTE | 2021-03-26 18:08 | PC.NURSE ---
Addendum entered by Jennifer Greenwood RN 03/26/21 18:47: This assessment was done at 0830. Original Note: Patient appears to be in pain with tensing of the muscles. Patients heart rate was in140's. Dr Mathews called and notified. New orders were received. Will continue to monitor patient.
--- NOTE | 2021-03-26 18:49 | PC.NURSE ---
Dr Suarez called at 1130 and given update on patient condition. Patient was given diazepam 5mg at 0843, patient then was relaxed and comfortable and heart rate was down to 90's-100's. Around 1115 patient seemed to be in pain and arms and legs would tense up when touched. VS R-26, BP 162/82 and heart bouncing between 110's-140's. New orders received. Meteporol 2.5mg and a CT of abd/pelvis.
[2021-03-26] MEDS: levETIRAcetam 500MG/NACL 100ML 500 MG/100 ML BAG 400 MG IVPB (19:07)
[2021-03-26 19:51] LABS: Creatine Kinase 2619 U/L (30-135)
[2021-03-26] MEDS: LORazepam INJ (*CRX) 2 MG/ML VIAL 1 MG IV PUSH (20:27)
[2021-03-27] VITALS (14 sets, daily range): BP systolic 142–175; BP diastolic 71–96; PULSE 100–135; RESP 16–20; TEMP 35.9–36.6; O2SAT 96–100
[2021-03-27 00:52] LABS: Glucose Point of Care 114 mg/dl (65-105)
[2021-03-27] MEDS: SODIUM BICARBONATE 8.4% 150 MEQ in WATER, STERILE FOR INJECTION 950 ML 75 MEQ IV CONT ×2 (00:59→17:41)
[2021-03-27] MEDS: MORPHINE SULFATE (*CRX) 2 MG/ML INJ IV PUSH ×5 (01:31→23:38)
[2021-03-27] MEDS: levETIRAcetam 500MG/NACL 100ML 500 MG/100 ML BAG 400 MG IVPB ×2 (05:41→17:42)
[2021-03-27 06:02] LABS: Glucose Point of Care 103 mg/dl (65-105)
[2021-03-27 08:27] LABS: Basophils Absolute Auto 0.1 K/mm3 (0.0-0.1); Basophils Percent Auto 0.3 % (0.2-1.2); Eosinophils Absolute Auto 0.1 K/mm3 (0-0.3); Eosinophils Percent Auto 0.4 % (0-4.4); Hematocrit 27.2 % (37.0-47.0); Hemoglobin 8.9 g/dL (12.0-15.0); Immature Granulocyte Absolute 0.08 K/mm3 (0.00-0.031); Immature Granulocyte Percent A 0.6 % (0-0.5); Lymphocytes Absolute Auto 2.54 K/mm3 (0.9-3.2); Lymphocytes Percent Auto 17.6 % (18.3-44.2); Mean Corpuscular HGB Conc 32.7 g/dl (32-36); Mean Corpuscular Hemoglobin 29.1 pg (26-34); Mean Corpuscular Volume 88.9 fl (80-100); Mean Platelet Volume 9.9 fl (7.4-10.4); Monocytes Absolute Auto 1.1 K/mm3 (0.1-0.6); Monocytes Percent Auto 7.7 % (2.6-8.5); Neutrophils Absolute Auto 10.6 K/mm3 (1.3-6.7); Neutrophils Percent Auto 73.4 % (45.5-73.1); Platelet Count Result 438 k/mm3 (150-375); Red Blood Count 3.06 M/mm3 (4.2-5.4); Red Cell Distribution Width 13.8 % (11.5-14.5); White Blood Count 14.4 K/mm3 (4.5-10.0)
[2021-03-27 08:33] LABS: INR 1.1; Prothrombin Time 14.6 Seconds (11.1-14.7)
[2021-03-27 08:34] LABS: Partial Thromboplastin Time 25.3 SECONDS (22.3-36.8)
[2021-03-27 08:37] LABS: Lactic Acid Reflex 0.7 mmol/L (0.7-2.1)
--- NOTE | 2021-03-27 08:39 | PCSTNOTE ---
Per RN, MBS order cancelled due to patient condition and prioritizing other testing.
[2021-03-27 08:46] LABS: Alanine Aminotransferase 53 U/L (4-35); Albumin Level 2.9 g/dL (3.5-5.1); Alkaline Phosphatase 92 U/L (38-126); Anion Gap 11 mmol/L (8-16); Aspartate Amino Transferase 93 U/L (14-36); Bilirubin,Total 0.4 mg/dL (0.2-1.3); Blood Urea Nitrogen 42 mg/dL (7-17); CRP 1.2 mg/dL (<1.0); Calcium 8.9 mg/dL (8.4-10.2); Carbon Dioxide 23 mmol/L (22-30); Chloride 107 mmol/L (98-107); Creatine Kinase 2420 U/L (30-135); Estimated CRCL calculation 27 ml/min; Estimated Glomerular Filt Rate 19; Glucose 116 mg/dL (65-105); Magnesium 2.1 mg/dL (1.6-2.3); Phosphorus 4.9 mg/dL (2.5-4.5); Potassium 3.9 mmol/L (3.4-5.0); Sodium 141 mmol/L (137-145)
[2021-03-27] MEDS: ASPIRIN 300 MG SUPPOSITORY RECTAL (09:13)
--- NOTE | 2021-03-27 09:20 | PC.NURSE ---
Pt to MRI and radiology for procedure per bed.
--- NOTE | 2021-03-27 09:21 | PM.PNNEP ---
Progress Note: A&P Assessment and Plan (1) Chronic kidney disease: Code(s): N18.9 - Chronic kidney disease, unspecified Status: Chronic Assessment and Plan: this patient has a diagnosis of chronic kidney disease stage IIIB Per snf records. Her ultrasound is normal. Urinalysis has blood protein and sugar. Urine electrolytes are pre renal. Proteinuria suggests a component of diabetes affecting the kidneys. Hypertension and vascular disease are also possible. She probably has an aspect of acute kidney injury. Urine electrolytes are pre renal renal scan is ordered. CPK is mildly high. Her CK went up and then came down. Bicarbonate level has returned to normal. Will check a urinalysis in the morning to see if the pH is high. will continue IV fluids with bicarbonate For now will also check a renal scan to look for blood flow. Check labs in the morning (2) Hypertension: Code(s): I10 - Essential (primary) hypertension Status: Chronic Assessment and Plan: Her blood pressure is creeping up. She cannot swallow anything. Will give a clonidine patch. (3) History of CVA (cerebrovascular accident): Code(s): Z86.73 - Personal history of transient ischemic attack (TIA), and cerebral infarction without residual deficits Status: Inactive Assessment and Plan: she has new left-sided weakness and several strokes on her CT scan She is unresponsive. She is getting an LP and an MRI today. 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 (5) Insulin dependent diabetes mellitus: Status: Chronic Assessment and Plan: Per hospitalist. Subjective Date/time seen: 03/27/21 09:21 Interval history: patient is comfortable in bed. Not responsive. Eyes closed. Exam Narrative: Exam Narrative: WDWN in NAD . Unresponsive. skin no rash head ncat lungs clear cor reg no rub abd BS+ nontender and soft ext no edema. Objective Data Vital Signs Vital Signs: Vital Signs - 24 hr 03/26/21 11:05 03/26/21 12:00 03/26/21 14:00 Temperature 36.5 C 36.9 C Pulse Rate 111 H 104 H 146 H Respiratory Rate 26 H 22 H Blood Pressure 162/82 H 175/76 H Pulse Oximetry 100 03/26/21 14:48 03/26/21 16:00 03/26/21 20:00 Temperature Pulse Rate 112 H 94 89 Respiratory Rate Blood Pressure Pulse Oximetry 03/26/21 21:09 03/27/21 00:00 03/27/21 04:00 Temperature 36.7 C Pulse Rate 107 H 114 H 115 H Respiratory Rate 20 Blood Pressure 170/78 H Pulse Oximetry 94 03/27/21 06:00 Temperature 35.9 C L Pulse Rate 105 H Respiratory Rate 18 Blood Pressure 145/71 H Pulse Oximetry 100 Intake/Output Intake/Output: Intake & Output 03/24/21 03/25/21 03/26/21 03/27/21 23:59 23:59 23:59 23:59 Intake Total 397 1200 1200 Output Total 325 1100 550 Balance 72 100 650 Meds/Results Medications: Active Medications Generic Name Dose Route Start Last Admin Trade Name Freq PRN Reason Stop Dose Admin Aspirin 300 mg 03/26/21 09:00 03/27/21 09:13 Aspirin 300 Mg Suppository RECTAL 300 mg DAILY RYLIE Administration Dextrose 12.5 gm 03/25/21 16:45 Dextrose 50% 25 Gm/50 Ml Syringe IV PUSH PRN PRN Hypoglycemia Protocol Glucagon 1 mg 03/25/21 16:45 Glucagon For Inj 1 Mg Vial IM PRN PRN Hypoglycemia Protocol Glucose 15 gm 03/25/21 16:45 Glucose Oral Gel 15 Gm Of Glucse In 37.5 Gm Tube PO PRN PRN Hypoglycemia Protocol Hydralazine HCl 10 mg 03/26/21 20:03 Hydralazine Hcl 20 Mg/Ml Vial IV PUSH Q6H PRN Blood Pressure - High Dextrose 1,000 mls @ 100 mls/hr 03/25/21 16:45 Dextrose 5% 1,000 Ml IVPB PRN PRN Hypoglycemia Protocol Sodium Bicarbonate 150 meq/ 1,10
--- NOTE | 2021-03-27 09:23 | PCPTNOTE ---
attempted to see patient today. I attempted passive ROM on UE in an attempt to wake her and she became agitated and tonic but did not wake or assist with motions. I called [facility] to determine PLOF and was told that she was able to feed herself, talk on her cell phone, and is a 1 assist at baseline. Jorge Alberto is having an MRI and lumbar puncture performed today. Based on patient's current status, I recommend waiting until these test results are received before attempting physical therapy evaluation.
--- NOTE | 2021-03-27 09:35 | PCOTNOTE ---
[facility] where pt resides was contacted to determine PLOF and was told that she was able to feed herself, talk on her cell phone, and is a 1 assist at baseline. Pt is having MRI and lumbar puncture performed today. Based on patient's current status and discussion with nursing, recommend holding therapy until these test results are received before attempting evaluation.
[2021-03-27 10:22] LABS: Glucose CSF 72 mg/dL (40-70); Total Protein CSF 83 mg/dL (12-60)
[2021-03-27 10:37] LABS: Appearance CSF Clear (Clear); CSF source CSF; Color CSF Colorless (Colorless); Nucleated Cell CSF 3 /uL (0-5)
[2021-03-27 10:38] LABS: Red Blood Cell CSF 31 (0-2)
[2021-03-27 10:43] LABS: Lymphocytes CSF 92 % (40-80); Monocytes CSF 8 % (15-45)
--- NOTE | 2021-03-27 10:55 | PC.NURSE ---
Patient returned from radiology and MRI.
[2021-03-27 11:44] LABS: Glucose Point of Care 124 mg/dl (65-105)
--- NOTE | 2021-03-27 13:20 | PCSTNOTE ---
Attempted communication evaluation with patient at 08:30 and 13:15. Patient was able to open eyes but unable to maintain arousal. She was unresponsive to single word commands. Recommend holding ST evaluation until patient is more alert and responsive.
[2021-03-27] MEDS: METOPROLOL TARTRATE INJ 5 MG/5 ML VIAL 2.5 MG IV PUSH (14:14)
[2021-03-27] MEDS: hydrALAZINE HCL 20 MG/ML VIAL 10 MG IV PUSH (16:00)
[2021-03-27 17:10] LABS: Glucose Point of Care 149 mg/dl (65-105)
[2021-03-27] MEDS: METOPROLOL TARTRATE INJ 5 MG/5 ML VIAL IV PUSH ×2 (17:42→23:39)
--- NOTE | 2021-03-27 19:23 | PM.IMPN ---
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 (3) Hypertension: Code(s): I10 - Essential (primary) hypertension Status: Chronic (4) Depression: Code(s): F32.9 - Major depressive disorder, single episode, unspecified Status: Chronic (5) Insulin dependent diabetes mellitus: Status: Chronic (6) Altered mental status: Qualifiers: Altered mental status type: unspecified Qualified Code(s): R41.82 - Altered mental status, unspecified Code(s): R41.82 - Altered mental status, unspecified Status: Acute (7) Acute CVA (cerebrovascular accident): Code(s): I63.9 - Cerebral infarction, unspecified Status: Acute (8) Acute kidney injury superimposed on chronic kidney disease: Code(s): N17.9 - Acute kidney failure, unspecified; N18.9 - Chronic kidney disease, unspecified Status: Acute (9) Rhabdomyolysis: Code(s): M62.82 - Rhabdomyolysis Status: Acute (10) Seizure disorder as sequela of cerebrovascular accident: Code(s): I69.398 - Other sequelae of cerebral infarction; G40.909 - Epilepsy, unspecified, not intractable, without status epilepticus Status: Acute Additional Plan 03/25/[address] scan shows her old infarctions. I will continue with her aspirin but I will make it a rectal suppository. Neurology has been consulted. The patient is nonverbal. But the residential stated that the patient is usually talkative. I did speak with her grandmother juliana zapata who stated the patient is usually talkative. The patient is flaccid on the left upper and lower extremity which is old and she has limited movement to the right side now. We will follow-up with the MRI, carotid Dopplers, and an echo. PT OT and speech therapy consults have been placed. Swallow study has also been ordered as well. Will do Accu-Cheks every 6 hours with sliding scale insulin. Last A1c was noted to be 8.1. Her medications are on hold at this time she is NPO until we can get a swallow study. P.r.n. hydralazine with parameters. Her diabetes she should have lower blood pressures however she is possibly having a stroke we need to keep them at higher level. No other family members are noted to have this disease. This was diagnosed approximately a year and a half ago. I am not sure if this is related to her [facility] visits related to her diabetes. Patient's last great and was 3.0 and is now 4.1. Patient's GFR son to 16 from . We will get a renal ultrasound. Looks like she is stage IV. 03/26/21 nephro note reviewed and pt w JUVENTINO on CKD 3, MRI w contrast changed to MRI brain non con, NPO at this time,. ST eval and possible NGT if mental status does not improve, Patient reported alert and oriented x3 prior to admission she is nowhere near his baseline at the time of my evaluation today. I have ordered LP in addition to MRI as she lives in a residential and [employer] infection is in differential. Additionally, I have ordered Keppra as she appears to be seizing which could be secondary to new CVA. cont current care. neurology contacted via telephone recommendations appreciated. patient appears to be in discomfort with palpation of the left abdomen will order CT chest abdomen pelvis as she is nonverbal at this time With tachycardia and appears to have source of pain. 03/27/21 renal function improving, patient with acute rhabdomyolysis, patient with multiple new CVAs affecting now the left side, Suspect patient having seizures, Very poor prognosis. Anticipate need for PEG prior to returning to her facility, cont current care , pt is hospice appropriate Subjective Date/time seen: 03/27/21 08:23 no change today at time of my examination still pending MRI and LP Exam Narrative: Exam Narrative
[2021-03-27 23:49] LABS: Glucose Point of Care 129 mg/dl (65-105)
[2021-03-28] VITALS (14 sets, daily range): BP systolic 154–170; BP diastolic 80–94; PULSE 82–142; RESP 18; TEMP 36.1–36.5; O2SAT 98–99
[2021-03-28] MEDS: MORPHINE SULFATE (*CRX) 2 MG/ML INJ IV PUSH ×5 (04:01→23:16)
[2021-03-28] MEDS: levETIRAcetam 500MG/NACL 100ML 500 MG/100 ML BAG 400 MG IVPB ×2 (05:34→17:13)
[2021-03-28] MEDS: METOPROLOL TARTRATE INJ 5 MG/5 ML VIAL IV PUSH ×4 (05:34→23:16)
[2021-03-28 05:57] LABS: Add Urine Microscopic? YES; Appearance Urine Cloudy (Clear); Bacteria Urine Trace /hpf; Bilirubin Urine Negative (Negative); Blood Urine 1+ (Negative); Color Urine Yellow (Yellow); Glucose Urine UA 2+ mg/dL (Negative); Hyaline Casts Urine 20-29 /lpf; Ketones Urine 1+ mg/dL (Negative); Leukocyte Esterase Ur Negative LEU/UL (NEGATIVE); Mucus Urine Few /lpf; Nitrate Urine Negative (Negative); Protein Urine 3+ mg/dL (Negative); RBC Urine 21-50 /hpf (0-2); Specific Grav Ur 1.022 (1.001-1.035); Squamous Epithelial Cell Urine Many /hpf (Few); Urobilinogen Urine Negative mg/dL (<2.0); WBC Urine 21-30 /hpf (0-3)
[2021-03-28 06:41] LABS: Albumin Level 3.1 g/dL (3.5-5.1); Anion Gap 10 mmol/L (8-16); Blood Urea Nitrogen 47 mg/dL (7-17); Carbon Dioxide 25 mmol/L (22-30); Chloride 106 mmol/L (98-107); Creatine Kinase 2232 U/L (30-135); Estimated CRCL calculation 30 ml/min; Estimated Glomerular Filt Rate 22; Glucose 141 mg/dL (65-105); Phosphorus 5.2 mg/dL (2.5-4.5); Potassium 4.8 mmol/L (3.4-5.0); Sodium 141 mmol/L (137-145)
[2021-03-28 06:49] LABS: Glucose Point of Care 131 mg/dl (65-105)
[2021-03-28] MEDS: ASPIRIN 300 MG SUPPOSITORY RECTAL (08:06)
[2021-03-28] MEDS: SODIUM BICARBONATE 8.4% 150 MEQ in WATER, STERILE FOR INJECTION 950 ML 75 MEQ IV CONT ×2 (08:06→21:57)
--- NOTE | 2021-03-28 08:24 | PCPTNOTE ---
Attempted Physical Therapy evaluation x3, patient not appropriate for therapy at this time, patient unresponsive, and unable to follow commands, dependent with all mobility. Will D/C orders at this time.
--- NOTE | 2021-03-28 08:29 | PCOTNOTE ---
Attempted Occupational Therapy evaluation x3, patient not appropriate for therapy at this time, patient unresponsive, and unable to follow commands, dependent with all ADLS and mobility. Will D/C orders at this time.
[2021-03-28 08:47] LABS: Hematocrit 25.8 % (37.0-47.0); Hemoglobin 8.5 g/dL (12.0-15.0); Mean Corpuscular HGB Conc 32.9 g/dl (32-36); Mean Corpuscular Hemoglobin 28.9 pg (26-34); Mean Corpuscular Volume 87.8 fl (80-100); Mean Platelet Volume 9.8 fl (7.4-10.4); Platelet Count Result 435 k/mm3 (150-375); Red Blood Count 2.94 M/mm3 (4.2-5.4); Red Cell Distribution Width 13.4 % (11.5-14.5); White Blood Count 14.5 K/mm3 (4.5-10.0)
--- NOTE | 2021-03-28 11:33 | PCSTNOTE ---
Therapist entered room to evaluate patient. She opened eyes to look at therapist and then closed them. Did open them again at times to either look at therapist or look around the room. Therapist asked patient several yes/no questions with no verbal or gestural response. Therapist asked patient to complete several oral motor tasks (open the mouth/smile/protrude the tongue) with therapist models and no physical response was observed. Therapist interviewed [employer]'s who had completed oral care; they reported that she barely opened lips to allow swab to enter mouth, and then had no lingual response (attempt to expel swab, suck on wet swab, etc.). Patient conferenced with RN, Wanda, concerning plan to discontinue order and she voiced understanding and agreement. Therapist spoke with Hospitalist, Dr. Cabrera, who also voiced understanding and agreement. Patient may be re-evaluated should status improve.
[2021-03-28 11:44] LABS: Glucose Point of Care 128 mg/dl (65-105)
--- NOTE | 2021-03-28 13:30 | PM.IMPN ---
Progress Note: A&P Assessment and Plan (1) Chronic kidney disease: Code(s): N18.9 - Chronic kidney disease, unspecified Status: Chronic Assessment and Plan: Minesh on ckd stage III. baseline car 3. admission cr 4.1 imrpving. renal US negative. nephrology following. 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 This was diagnosed approximately a year and a half ago. (3) Hypertension: Code(s): I10 - Essential (primary) hypertension Status: Chronic Assessment and Plan: P.r.n. hydralazine with parameters. Her diabetes she should have lower blood pressures however she is possibly having a stroke we need to keep them at higher level. (4) Depression: Code(s): F32.9 - Major depressive disorder, single episode, unspecified Status: Chronic Assessment and Plan: Her medications are on hold at this time she is NPO until we can get a swallow study. (5) Insulin dependent diabetes mellitus: Status: Chronic Assessment and Plan: Will do Accu-Cheks every 6 hours with sliding scale insulin. Last A1c was noted to be 8.1. (6) Altered mental status: Qualifiers: Altered mental status type: unspecified Qualified Code(s): R41.82 - Altered mental status, unspecified Code(s): R41.82 - Altered mental status, unspecified Status: Acute Assessment and Plan: Patient CT scan shows her old infarctions. I will continue with her aspirin but I will make it a rectal suppository. Neurology has been consulted. The patient is nonverbal. But the intermediate stated that the patient is usually talkative. I did speak with her grandmother juliana zapata who stated the patient is usually talkative. The patient is flaccid on the left upper and lower extremity which is old and she has limited movement to the right side now. MRI done this admission with new stroke multiple in left frontal area and basal ganglia. on aspirin, statin. speech could not see adn sgined off until reorder eeg pending for possible seizure. (7) Acute CVA (cerebrovascular accident): Code(s): I63.9 - Cerebral infarction, unspecified Status: Acute (8) Acute kidney injury superimposed on chronic kidney disease: Code(s): N17.9 - Acute kidney failure, unspecified; N18.9 - Chronic kidney disease, unspecified Status: Acute (9) Rhabdomyolysis: Code(s): M62.82 - Rhabdomyolysis Status: Acute (10) Seizure disorder as sequela of cerebrovascular accident: Code(s): I69.398 - Other sequelae of cerebral infarction; G40.909 - Epilepsy, unspecified, not intractable, without status epilepticus Status: Acute Assessment and Plan: on kera. eeg done, results pending. Additional Plan 03/25/[address] scan shows her old infarctions. I will continue with her aspirin but I will make it a rectal suppository. Neurology has been consulted. The patient is nonverbal. But the intermediate stated that the patient is usually talkative. I did speak with her grandmother juliana zapata who stated the patient is usually talkative. The patient is flaccid on the left upper and lower extremity which is old and she has limited movement to the right side now. We will follow-up with the MRI, carotid Dopplers, and an echo. PT OT and speech therapy consults have been placed. Swallow study has also been ordered as well. Will do Accu-Cheks every 6 hours with sliding scale insulin. Last A1c was noted to be 8.1. Her medications are on hold at this time she is NPO until we can get a swallow study. P.r.n. hydralazine with parameters. Her diabetes she should have lower blood pressures however she is possibly having a stroke we need to keep them at higher level. No other family members are noted to have this disease. This was diagnosed approximately a year and a half ago. I am no
--- NOTE | 2021-03-28 15:50 | P.PNNP_ITS ---
Progress Note: A&P Assessment and Plan (1) JUVENTINO (acute kidney injury): Code(s): N17.9 - Acute kidney failure, unspecified Status: Acute Assessment and Plan: * suspect she has an element of JUVENTINO/ARF * evaluation to date: - renal ultrasound - urinalysis has blood, protein, and sugar - urine electrolytes are pre renal * renal scan with adequate blood flow - possible ATN? * follow repeat labs and UOP (2) Chronic kidney disease: Code(s): N18.9 - Chronic kidney disease, unspecified Status: Chronic Assessment and Plan: * unclear what her baseline creatinine is * however, [facility] living records list chronic kidney disease stage IIIB as a problem/diagnosis * proteinuria suggests a component of diabetes, hypertension, and and vascular disease affecting the kidneys * follow trend of labs (3) Hypertension: Code(s): I10 - Essential (primary) hypertension Status: Chronic Assessment and Plan: * fluctuating * since unable to give po meds, on clonidine patch * may also need PRN IV medications (4) History of CVA (cerebrovascular accident): Code(s): Z86.73 - Personal history of transient ischemic attack (TIA), and cerebral infarction without residual deficits Status: Inactive Assessment and Plan: * imaging with several strokes * left sided weakness noted (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 Subjective Date/time seen: 03/28/21 15:50 Chart reviewed since admission -- remains unresponsive and in no apparent distress; renal scan results noted; no issues/events overnight or earlier this AM. Exam Narrative: Exam Narrative: General: WD/WN /female in NAD; unresponsive Heart: normal S1 and S2; no rub Lungs: clear to auscultation Abdomen: soft, nontender, nondistended, positive bowel sounds Extremities: no cyanosis or clubbing; no edema Skin: warm and dry Objective Data Vital Signs Vital Signs: Vital Signs Temp Pulse Resp BP Pulse Ox 03/28/21 14:00 36.5 C 101 H 18 170/94 H 99 03/28/21 12:30 82 03/28/21 12:00 87 03/28/21 08:00 130 H 03/28/21 05:54 36.1 C L 99 18 164/91 H 98 03/28/21 05:34 117 H 03/28/21 04:00 115 H 03/28/21 00:00 90 03/27/21 23:39 135 H 03/27/21 20:00 35.9 C L 106 H 18 142/78 H 100 03/27/21 17:42 120 H Intake/Output Intake/Output: Intake & Output 03/25/21 03/26/21 03/27/21 03/28/21 23:59 23:59 23:59 23:59 Intake Total 397 1200 2400 1200 Output Total 325 1100 1000 825 Balance 72 100 1400 375 Meds/Results Medications: Active Medications Generic Name Dose Route Start Last Admin Trade Name Freq PRN Reason Stop Dose Admin Aspirin 300 mg 03/26/21 09:00 03/28/21 08:06 Aspirin 300 Mg Suppository RECTAL 300 mg DAILY RYLIE Administration Dextrose 12.5 gm 03/25/21 16:45 Dextrose 50% 25 Gm/50 Ml Sy
--- NOTE | 2021-03-28 15:50 | PM.PNNEP ---
Progress Note: A&P Assessment and Plan (1) JUVENTINO (acute kidney injury): Code(s): N17.9 - Acute kidney failure, unspecified Status: Acute Assessment and Plan: suspect she has an element of JUVENTINO/ARF evaluation to date: - renal ultrasound - urinalysis has blood, protein, and sugar - urine electrolytes are pre renal renal scan with adequate blood flow - possible ATN? follow repeat labs and UOP (2) Chronic kidney disease: Code(s): N18.9 - Chronic kidney disease, unspecified Status: Chronic Assessment and Plan: unclear what her baseline creatinine is however, [facility] records list chronic kidney disease stage IIIB as a problem/diagnosis proteinuria suggests a component of diabetes, hypertension, and and vascular disease affecting the kidneys follow trend of labs (3) Hypertension: Code(s): I10 - Essential (primary) hypertension Status: Chronic Assessment and Plan: fluctuating since unable to give po meds, on clonidine patch may also need PRN IV medications (4) History of CVA (cerebrovascular accident): Code(s): Z86.73 - Personal history of transient ischemic attack (TIA), and cerebral infarction without residual deficits Status: Inactive Assessment and Plan: imaging with several strokes left sided weakness noted (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 Subjective Date/time seen: 03/28/21 15:50 Chart reviewed since admission -- remains unresponsive and in no apparent distress; renal scan results noted; no issues/events overnight or earlier this AM. Exam Narrative: Exam Narrative: General: WD/WN /female in NAD; unresponsive Heart: normal S1 and S2; no rub Lungs: clear to auscultation Abdomen: soft, nontender, nondistended, positive bowel sounds Extremities: no cyanosis or clubbing; no edema Skin: warm and dry Objective Data Vital Signs Vital Signs: Vital Signs Temp Pulse Resp BP Pulse Ox 03/28/21 14:00 36.5 C 101 H 18 170/94 H 99 03/28/21 12:30 82 03/28/21 12:00 87 03/28/21 08:00 130 H 03/28/21 05:54 36.1 C L 99 18 164/91 H 98 03/28/21 05:34 117 H 03/28/21 04:00 115 H 03/28/21 00:00 90 03/27/21 23:39 135 H 03/27/21 20:00 35.9 C L 106 H 18 142/78 H 100 03/27/21 17:42 120 H Intake/Output Intake/Output: Intake & Output 03/25/21 03/26/21 03/27/21 03/28/21 23:59 23:59 23:59 23:59 Intake Total 397 1200 2400 1200 Output Total 325 1100 1000 825 Balance 72 100 1400 375 Meds/Results Medications: Active Medications Generic Name Dose Route Start Last Admin Trade Name Freq PRN Reason Stop Dose Admin Aspirin 300 mg 03/26/21 09:00 03/28/21 08:06 Aspirin 300 Mg Suppository RECTAL 300 mg DAILY RYLIE Administration Dextrose 12.5 gm 03/25/21 16:45 Dextrose 50% 25 Gm/50 Ml Syringe IV PUSH PRN PRN Hypoglycemia Protocol Glucagon 1 mg 03/25/21 16:45 Glucagon For Inj 1 Mg Vial IM PRN PRN Hypoglycemia Protocol Glucose 15 gm 03/25/21 16:45 Glucose Oral Gel 15 Gm Of Glucse In 37.5 Gm Tube PO PRN PRN Hypoglycemia Protocol Hydralazine HCl 10 mg 03/26/21 20:03 03/27/21 16:00 Hydralazine Hcl 20 Mg/Ml Vial IV PUSH 10 mg Q6H PRN Administration Blood Pressure - High Dextrose 1,000 mls @ 100 mls/hr 03/25/21 16:45 Dextrose 5% 1,000 Ml IVPB PRN PRN Hypoglycemia Protocol Sodium Bicarbonate 150 meq/ 1,100 mls @ 75 mls/hr 03/25/21 18:50 03/28/21 08:06 Sterile Water IV CONT 75 mls/hr .[id number] RYLIE Administration Levetiracetam 500 mg in 100 mls @
--- NOTE | 2021-03-28 17:43 | WPDNEURCNPN ---
Assessment and Plan Additional Plan neurological deficit correlated with the obvious abnormalities because of the stroke complicated by the renal treatment is being continued as such will obtain the EEG Consult date: 03/28/21 Time Seen: 17:00 HPI: Jorge Alberto Saldaña is a 30 year old female admitted to the hospital on transfer from the [facility] with the complaints of being [place] bubble and yelling out loud along with observation of tachycardia and diaphoresis though the blood sugar at the time was in 100s noted Chanda her left upper and left lower extremity was flaccid with limited movements of the right upper and right lower extremity BUN was 39 creatinine 4.10 with GFR of only 16 myoglobin 9.5 hemoglobin A1c 8.1 she carries the diagnosis of left hemiplegia 2nd true cerebrovascular accident in addition to the ongoing history of 1. Chronic kidney disease 2. Hypertension 3. Insulin-dependent diabetes mellitus 4. Documented abnormal renal function 5. Documented bilateral infarct involving the left frontal and right frontal parietal occipital lobe and chronic left thalamic lacunar infarct and chronic right periventricular lacunar infarct but no evidence of bleed echocardiogram was incomplete because of the lack of cooperation renal ultrasound without hydronephrosis but again the exam was rather limited, patient is being followed by the heart doctor Review of Systems Review of Systems: All systems reviewed & are unremarkable except as noted in HPI and below PMFSH Past Medical History Medical History Chronic kidney disease Depression Finger amputation, no complication History of CVA (cerebrovascular accident) Hypertension Insulin dependent diabetes mellitus Last hemoglobin A1c 8.1 Moyamoya disease Family History Family History Mother Diabetes mellitus ESRD (end stage renal disease) Social History Social History Social History: The patient lives at [facility]. Silvia jodi is listed as her advance directive healthcare proxy. The patient is listed as a full code. She is disabled. She is single never . No children. Smoking status is unknown. Smoking status: Never smoker Spiritual care concerns: No Meds Home Medications and Allergies Home Medications Medication Instructions Recorded Confirmed Type Adult Low Dose Aspirin 81 mg PO DAILY 03/25/21 03/25/21 History Blue-Emu Lidocaine Patch 1 patch DAILY 03/25/21 03/25/21 History Humalog U-100 Insulin 5 units SUBCUT TIDWM 03/25/21 03/25/21 History Lantus Solostar U-100 Insulin 10 units SUBCUT HS 03/25/21 03/25/21 History Miralax 17 g PO DAILY 03/25/21 03/25/21 History Dawson 5 - 325 mg PO Q12-24H PRN 03/25/21 03/25/21 History Senna Plus (senna-docusate) 8.6 - 50 mg PO BID 03/25/21 03/25/21 History acetaminophen 650 mg PO Q6-8H PRN 03/25/21 03/25/21 History amlodipine 10 mg PO DAILY 03/25/21 03/25/21 History atorvastatin 80 mg PO HS 03/25/21 03/25/21 History baclofen 10 mg PO HS 03/25/21 03/25/21 History bisacodyl 10 mg RECTAL DAILY PRN 03/25/21 03/25/21 History citalopram 20 mg PO DAILY 03/25/21 03/25/21 History glucagon 1 mg PO PRN PRN 03/25/21 03/25/21 History hydrochlorothiazide 25 mg PO DAILY 03/25/21 03/25/21 History labetalol 400 mg PO Q12-24H 03/25/21 03/25/21 History melatonin 5 mg PO HS 03/25/21 03/25/21 History Allergies Allergy/AdvReac Type Severity Reaction Status Date / Time peanut Allergy Unknown Verified 03/25/21 19:43 Vital Signs Vital Signs - 24 hr 03/27/21 20:00 03/27/21 23:39 03/28/21 00:00 Temperature 35.9 C L Pulse Rate 106 H 135 H 90 Respiratory Rate 18 Blood Pressure 142/78 H Pulse Oximetry 100 03/28/21 04:00 03/28/21 05:34 03/28/21 05:54 Temperature 36.1 C L Pulse Rate 115 H 117 H 99 Respiratory Rate 18 Blood Pressure 164/91 H Pulse Oxim
[2021-03-28 23:45] LABS: Glucose Point of Care 128 mg/dl (65-105)
[2021-03-29] VITALS (14 sets, daily range): BP systolic 142–162; BP diastolic 64–98; PULSE 76–132; RESP 17–20; TEMP 36.2–36.7; O2SAT 97–100; BMI 31.7
[2021-03-29] MEDS: levETIRAcetam 500MG/NACL 100ML 500 MG/100 ML BAG 400 MG IVPB ×2 (05:27→17:05)
[2021-03-29] MEDS: MORPHINE SULFATE (*CRX) 2 MG/ML INJ IV PUSH ×4 (05:28→20:01)
[2021-03-29] MEDS: METOPROLOL TARTRATE INJ 5 MG/5 ML VIAL IV PUSH ×4 (05:28→23:11)
[2021-03-29 05:56] LABS: Glucose Point of Care 127 mg/dl (65-105)
[2021-03-29] MEDS: ASPIRIN 300 MG SUPPOSITORY RECTAL (08:29)
--- NOTE | 2021-03-29 09:34 | P.PNNP_ITS ---
Progress Note: A&P Assessment and Plan (1) JUVENTINO (acute kidney injury): Code(s): N17.9 - Acute kidney failure, unspecified Status: Acute Assessment and Plan: * suspect she has an element of JUVENTINO/ARF * evaluation to date: - renal ultrasound without obstruction - urinalysis has blood, protein, and sugar - urine electrolytes are pre renal * renal scan with adequate blood flow - possible ATN? * follow repeat labs and UOP (2) Chronic kidney disease: Code(s): N18.9 - Chronic kidney disease, unspecified Status: Chronic Assessment and Plan: * unclear what her baseline creatinine is * however, [facility] records list chronic kidney disease stage IIIB as a problem/diagnosis * proteinuria suggests a component of diabetes, hypertension, and vascular disease affecting the kidneys * follow trend of labs (3) Hypertension: Code(s): I10 - Essential (primary) hypertension Status: Chronic Assessment and Plan: * fluctuating * since unable to give po meds, on clonidine patch * may also need PRN IV medications (4) History of CVA (cerebrovascular accident): Code(s): Z86.73 - Personal history of transient ischemic attack (TIA), and cerebral infarction without residual deficits Status: Inactive Assessment and Plan: * imaging with several strokes * left sided weakness noted (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 Subjective Date/time seen: 03/29/21 09:34 No real change at the time of my visit -- remains non-verbal/non-communicative but in no apparent distress; no apparent distress or discomfort noted. Exam Narrative: Exam Narrative: General: WD/WN female in NAD; unresponsive Heart: normal S1 and S2; no rub Lungs: clear to auscultation Abdomen: soft, nontender, nondistended, positive bowel sounds Extremities: no cyanosis or clubbing; no edema Skin: warm and intact Objective Data Vital Signs Vital Signs: Vital Signs Temp Pulse Resp BP Pulse Ox 03/29/21 08:00 76 03/29/21 05:28 109 H 03/29/21 05:17 36.3 C L 101 H 20 149/98 H 100 03/29/21 04:00 98 03/29/21 00:00 98 03/28/21 23:16 96 03/28/21 23:14 97 154/80 H 03/28/21 20:00 91 03/28/21 19:57 36.4 C 93 18 161/83 H 99 03/28/21 17:10 142 H 03/28/21 16:00 101 H 03/28/21 14:00 36.5 C 101 H 18 170/94 H 99 03/28/21 12:30 82 03/28/21 12:00 87 Intake/Output Intake/Output: Intake & Output 03/26/21 03/27/21 03/28/21 03/29/21 23:59 23:59 23:59 23:59 Intake Total 1200 2400 2400 100 Output Total 1100 1000 975 650 Balance 100 1400 1425 -550 Meds/Results Medications: Active Medications Generic Name Dose Route Start Last Admin Trade Name Norrisq PRN Reason Stop Dose Admin Aspirin 300 mg 03/26/21 09:00 03/29/21 08:29 Aspirin 300 Mg Suppository RECTAL 300 mg
--- NOTE | 2021-03-29 09:34 | PM.PNNEP ---
Progress Note: A&P Assessment and Plan (1) JUVENTINO (acute kidney injury): Code(s): N17.9 - Acute kidney failure, unspecified Status: Acute Assessment and Plan: suspect she has an element of JUVENTINO/ARF evaluation to date: - renal ultrasound without obstruction - urinalysis has blood, protein, and sugar - urine electrolytes are pre renal renal scan with adequate blood flow - possible ATN? follow repeat labs and UOP (2) Chronic kidney disease: Code(s): N18.9 - Chronic kidney disease, unspecified Status: Chronic Assessment and Plan: unclear what her baseline creatinine is however, [facility] records list chronic kidney disease stage IIIB as a problem/diagnosis proteinuria suggests a component of diabetes, hypertension, and vascular disease affecting the kidneys follow trend of labs (3) Hypertension: Code(s): I10 - Essential (primary) hypertension Status: Chronic Assessment and Plan: fluctuating since unable to give po meds, on clonidine patch may also need PRN IV medications (4) History of CVA (cerebrovascular accident): Code(s): Z86.73 - Personal history of transient ischemic attack (TIA), and cerebral infarction without residual deficits Status: Inactive Assessment and Plan: imaging with several strokes left sided weakness noted (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 Subjective Date/time seen: 03/29/21 09:34 No real change at the time of my visit -- remains non-verbal/non-communicative but in no apparent distress; no apparent distress or discomfort noted. Exam Narrative: Exam Narrative: General: WD/WN female in NAD; unresponsive Heart: normal S1 and S2; no rub Lungs: clear to auscultation Abdomen: soft, nontender, nondistended, positive bowel sounds Extremities: no cyanosis or clubbing; no edema Skin: warm and intact Objective Data Vital Signs Vital Signs: Vital Signs Temp Pulse Resp BP Pulse Ox 03/29/21 08:00 76 03/29/21 05:28 109 H 03/29/21 05:17 36.3 C L 101 H 20 149/98 H 100 03/29/21 04:00 98 03/29/21 00:00 98 03/28/21 23:16 96 03/28/21 23:14 97 154/80 H 03/28/21 20:00 91 03/28/21 19:57 36.4 C 93 18 161/83 H 99 03/28/21 17:10 142 H 03/28/21 16:00 101 H 03/28/21 14:00 36.5 C 101 H 18 170/94 H 99 03/28/21 12:30 82 03/28/21 12:00 87 Intake/Output Intake/Output: Intake & Output 03/26/21 03/27/21 03/28/21 03/29/21 23:59 23:59 23:59 23:59 Intake Total 1200 2400 2400 100 Output Total 1100 1000 975 650 Balance 100 1400 1425 -550 Meds/Results Medications: Active Medications Generic Name Dose Route Start Last Admin Trade Name Freq PRN Reason Stop Dose Admin Aspirin 300 mg 03/26/21 09:00 03/29/21 08:29 Aspirin 300 Mg Suppository RECTAL 300 mg DAILY RYLIE Administration Dextrose 12.5 gm 03/25/21 16:45 Dextrose 50% 25 Gm/50 Ml Syringe IV PUSH PRN PRN Hypoglycemia Protocol Glucagon 1 mg 03/25/21 16:45 Glucagon For Inj 1 Mg Vial IM PRN PRN Hypoglycemia Protocol Glucose 15 gm 03/25/21 16:45 Glucose Oral Gel 15 Gm Of Glucse In 37.5 Gm Tube PO PRN PRN Hypoglycemia Protocol Hydralazine HCl 10 mg 03/26/21 20:03 03/27/21 16:00 Hydralazine Hcl 20 Mg/Ml Vial IV PUSH 10 mg Q6H PRN Administration Blood Pressure - High Dextrose 1,000 mls @ 100 mls/hr 03/25/21 16:45 Dextrose 5% 1,000 Ml IVPB PRN PRN Hypoglycemia Protocol Sodium Bicarbonate 150 meq/ 1,100 mls @ 75 mls/hr 03/25/21 18:50 03/29/21 05:50 Sterile Water
--- NOTE | 2021-03-29 09:37 | WPDNEUROLOGY ---
Neurology EEG Report General Information Date of Study: 03/28/21 TEST EEG DIAGNOSIS seizures with history of underlying moyamoya disease CONDITION OF RECORDING awake with eyes wide open tensing up and arching back throughout the tracing. EEG NUMBER [id number] CLINICAL HISTORY patient has ongoing history of moyamoya disease EEG DESCRIPTION whole record consists of diffuse low to medium voltage 1 to 3 hertz pes econd delta activity superimposed by low-voltage 15 to 18 hertz per second beta activity. Hyperventilation not done. Photic stimulation not done. Non paroxysmal. Nonfocal. Nonlateralizing. IMPRESSION Abnormal record due to the presence of bihemispheric delta activity. There is no evidence of paroxysmal discharge throughout the tracing. These abnormalities are suggestive of underlying organic or metabolic insult to the brain clinical correlation recommended. there is no evidence of active seizures going on
[2021-03-29 10:05] LABS: Basophils Percent Auto 0.3 % (0.2-1.2); Eosinophils Absolute Auto 0.2 K/mm3 (0-0.3); Eosinophils Percent Auto 1.3 % (0-4.4); Hematocrit 28.1 % (37.0-47.0); Hemoglobin 8.9 g/dL (12.0-15.0); Immature Granulocyte Absolute 0.05 K/mm3 (0.00-0.031); Immature Granulocyte Percent A 0.4 % (0-0.5); Lymphocytes Absolute Auto 2.22 K/mm3 (0.9-3.2); Lymphocytes Percent Auto 17.4 % (18.3-44.2); Mean Corpuscular HGB Conc 31.7 g/dl (32-36); Mean Corpuscular Hemoglobin 28.3 pg (26-34); Mean Corpuscular Volume 89.5 fl (80-100); Mean Platelet Volume 10.2 fl (7.4-10.4); Monocytes Absolute Auto 0.8 K/mm3 (0.1-0.6); Monocytes Percent Auto 6.4 % (2.6-8.5); Neutrophils Absolute Auto 9.4 K/mm3 (1.3-6.7); Neutrophils Percent Auto 74.2 % (45.5-73.1); Platelet Count Result 478 k/mm3 (150-375); Red Blood Count 3.14 M/mm3 (4.2-5.4); Red Cell Distribution Width 13.6 % (11.5-14.5); White Blood Count 12.7 K/mm3 (4.5-10.0)
[2021-03-29 10:13] LABS: Alanine Aminotransferase 55 U/L (4-35); Albumin Level 2.8 g/dL (3.5-5.1); Alkaline Phosphatase 89 U/L (38-126); Anion Gap 8 mmol/L (8-16); Aspartate Amino Transferase 81 U/L (14-36); Bilirubin,Total 0.6 mg/dL (0.2-1.3); Blood Urea Nitrogen 41 mg/dL (7-17); Calcium 8.7 mg/dL (8.4-10.2); Carbon Dioxide 36 mmol/L (22-30); Chloride 100 mmol/L (98-107); Creatine Kinase 1259 U/L (30-135); Estimated CRCL calculation 32 ml/min; Estimated Glomerular Filt Rate 23; Glucose 141 mg/dL (65-105); Magnesium 1.9 mg/dL (1.6-2.3); Potassium 3.6 mmol/L (3.4-5.0); Sodium 144 mmol/L (137-145)
[2021-03-29 11:20] LABS: Folic Acid > 20.0 ng/mL (2.76->20)
[2021-03-29 11:50] LABS: Iron 29 ug/dL (37-170)
--- NOTE | 2021-03-29 12:12 | PM.IMPN ---
Progress Note: A&P Assessment and Plan (1) Seizure disorder as sequela of cerebrovascular accident: Code(s): I69.398 - Other sequelae of cerebral infarction; G40.909 - Epilepsy, unspecified, not intractable, without status epilepticus Status: Acute Assessment and Plan: Suspect patient is having intermittent seizures clinical findings. Already on Keppra IV. Renal function as mentioned below. Showing abnormal record to the presence of bihemispheric delta activity but no spikes. Neuro following. Need to add another agent. Discussed with neurology. Recommended VPA IV 750mg Q12h which will add. (2) Acute CVA (cerebrovascular accident): Code(s): I63.9 - Cerebral infarction, unspecified Status: Acute Assessment and Plan: Patient presents with altered mental status. CT of the brain showing bilateral stroke right greater than left but no acute findings. She ultimately had an MRI of the brain on March 27 which showed multiple small infarcts left frontal and basal ganglia area. She is NPO currently. She has a rectal aspirin on board. Echocardiogram was essentially normal. Carotid ultrasound was incomplete. Patient's mental status is usually better than this. Continue to allow for permissive hypertension. Continue PT, OT and speech therapy. Will need statin therapy at time of discharge. Place NG tube for nutrition. Will try the family again later today. Patient may be in a continuous vegetative state. Neurology following and appreciate their input. (3) Altered mental status: Qualifiers: Altered mental status type: unspecified Qualified Code(s): R41.82 - Altered mental status, unspecified Code(s): R41.82 - Altered mental status, unspecified Status: Acute Assessment and Plan: Related to above. On 03/27/2021 showed 31 red cells and 3 nucleated cells majority of which were lymphocytes. Glucose was 72 and protein was 83. Other studies are pending. All Cultures remain negative. (4) Acute kidney injury superimposed on chronic kidney disease: Code(s): N17.9 - Acute kidney failure, unspecified; N18.9 - Chronic kidney disease, unspecified Status: Acute Assessment and Plan: Baseline creatinine is around 3.0 per chart review. Creatinine 4.1 on admission felt related to dehydration and/or rhabdomyolysis. Renal ultrasound showing no acute issues. Protein to creatinine ratio is 2.7 g. With IV fluids, creatinine has trended down to 2.9 today. Continue fluids until creatinine kinase levels are below 1000. Appreciate nephrology input. (5) Rhabdomyolysis: Code(s): M62.82 - Rhabdomyolysis Status: Acute Assessment and Plan: Total creatinine kinase climbed to 2620. With IV fluids, levels have dropped to 1260. Continue IV fluids. Add nutrition. (6) Anemia: Code(s): D64.9 - Anemia, unspecified Status: Acute Assessment and Plan: Hemoglobin low but stable in the 8-9 range. B12 folate level normal this morning. Some of the Iron studies pending. Possibly related to her CKD. Continue monitor H&H. (7) Hypertension: Code(s): I10 - Essential (primary) hypertension Status: Chronic Assessment and Plan: Patient's blood pressure was reviewed on 03/29 Blood pressure remains elevated at times. Currently on Lopressor IV. Hydralazine available as needed. Continue to allow for permissive hypertension related to her recent stroke. Will continue current medications. (8) Insulin dependent diabetes mellitus: Status: Chronic Assessment and Plan: A1c 8.1. The patient's blood glucose was reviewed on 03/29 Glucose remains well controlled. Patient remains NPO. Continue AccuCheks covering with sliding scale. Hypoglycemia protocol available as needed. (9) Moyamoya disease: Code(s): I67.5 - Moyamoya disease Status: Chronic Assessment and Plan: No other
[2021-03-29 12:15] LABS: Glucose Point of Care 140 mg/dl (65-105)
[2021-03-29 12:16] LABS: Percent Iron Saturation 21 % (20-50)
[2021-03-29 13:09] LABS: SARS-CoV-2 RNA PCR Negative
[2021-03-29] MEDS: SODIUM CHLORIDE 0.9% IV 1,000 ML 75 ML IV CONT (13:19)
[2021-03-29 18:12] LABS: Glucose Point of Care 148 mg/dl (65-105)
[2021-03-29] MEDS: HEPARIN SODIUM 5,000 UNITS/ML VIAL 5000 UNITS SUB-Q (20:02)
[2021-03-29] MEDS: LORazepam INJ (*CRX) 2 MG/ML VIAL 1 MG IV PUSH (22:23)
[2021-03-29 23:17] LABS: Glucose Point of Care 167 mg/dl (65-105)
[2021-03-30] VITALS (13 sets, daily range): BP systolic 152–170; BP diastolic 86–97; PULSE 85–143; RESP 14–18; TEMP 36.1–36.3; O2SAT 97–100; BMI 31.7
[2021-03-30] MEDS: SODIUM CHLORIDE 0.9% IV 1,000 ML 75 ML IV CONT ×2 (02:26→17:19)
[2021-03-30] MEDS: MORPHINE SULFATE (*CRX) 2 MG/ML INJ IV PUSH ×5 (03:09→19:57)
[2021-03-30] MEDS: levETIRAcetam 500MG/NACL 100ML 500 MG/100 ML BAG 400 MG IVPB (05:30)
[2021-03-30] MEDS: METOPROLOL TARTRATE INJ 5 MG/5 ML VIAL IV PUSH ×4 (05:32→23:29)
[2021-03-30 05:47] LABS: Hematocrit 30.1 % (37.0-47.0); Hemoglobin 9.5 g/dL (12.0-15.0); Mean Corpuscular HGB Conc 31.6 g/dl (32-36); Mean Corpuscular Hemoglobin 28.4 pg (26-34); Mean Corpuscular Volume 90.1 fl (80-100); Mean Platelet Volume 10.4 fl (7.4-10.4); Platelet Count Result 514 k/mm3 (150-375); Red Blood Count 3.34 M/mm3 (4.2-5.4); Red Cell Distribution Width 13.4 % (11.5-14.5); White Blood Count 16.2 K/mm3 (4.5-10.0)
[2021-03-30 05:53] LABS: Glucose Point of Care 174 mg/dl (65-105)
[2021-03-30 06:04] LABS: Alanine Aminotransferase 58 U/L (4-35); Albumin Level 2.9 g/dL (3.5-5.1); Alkaline Phosphatase 94 U/L (38-126); Anion Gap 3 mmol/L (8-16); Aspartate Amino Transferase 74 U/L (14-36); Bilirubin,Total 0.4 mg/dL (0.2-1.3); Blood Urea Nitrogen 41 mg/dL (7-17); Carbon Dioxide 39 mmol/L (22-30); Chloride 103 mmol/L (98-107); Creatine Kinase 1055 U/L (30-135); Estimated CRCL calculation 32 ml/min; Estimated Glomerular Filt Rate 23; Glucose 207 mg/dL (65-105); Potassium 3.8 mmol/L (3.4-5.0); Sodium 145 mmol/L (137-145)
[2021-03-30] MEDS: HEPARIN SODIUM 5,000 UNITS/ML VIAL 5000 UNITS SUB-Q ×2 (10:41→20:02)
[2021-03-30] MEDS: ASPIRIN 300 MG SUPPOSITORY RECTAL (10:41)
--- NOTE | 2021-03-30 10:54 | PCDIET ---
See nutritional assessment, comprehensive. MD orders for tube feeding to advance to Nepro at 30 ml/hr increased by 10 ml q 6 hours to goal rate of 40 ml/hr. Patient is tolerating NGT feedings. RD will continue to monitor every Sunday and Sunday.
--- NOTE | 2021-03-30 12:08 | PM.PNNEP ---
Progress Note: A&P Assessment and Plan (1) JUVENTINO (acute kidney injury): Code(s): N17.9 - Acute kidney failure, unspecified Status: Acute Assessment and Plan: suspect she has an element of JUVENTINO/ARF evaluation to date: - renal ultrasound without obstruction - urinalysis has blood, protein, and sugar - urine electrolytes are pre renal renal scan with adequate blood flow - possible ATN? follow repeat labs and UOP (2) Chronic kidney disease: Code(s): N18.9 - Chronic kidney disease, unspecified Status: Chronic Assessment and Plan: unclear what her baseline creatinine is however, [facility] list chronic kidney disease stage IIIB as a problem/diagnosis proteinuria suggests a component of diabetes, hypertension, and vascular disease affecting the kidneys follow trend of labs (3) Hypertension: Code(s): I10 - Essential (primary) hypertension Status: Chronic Assessment and Plan: fluctuating consider BP medications per NG tube follow hemodynamics (4) History of CVA (cerebrovascular accident): Code(s): Z86.73 - Personal history of transient ischemic attack (TIA), and cerebral infarction without residual deficits Status: Inactive Assessment and Plan: imaging with several strokes left sided weakness noted (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 Subjective Date/time seen: 03/30/21 12:08 Remains non-communicative/non-verbal and opens eyes at times; she does speak at times but not in regards to conversation or questions; fluctuating agitation noted; apparent seizure activity noted so started on IV antiepileptics; family to discuss among themselves next course of action (full aggressive care versus comfort care measures) given patient's situation. Exam Narrative: Exam Narrative: General: WD/WN female in NAD; unresponsive Heart: normal S1 and S2; tachycardic Lungs: clear to auscultation Abdomen: soft, nontender, nondistended, positive bowel sounds Extremities: no cyanosis or clubbing; no edema Skin: no rash or nodules Objective Data Vital Signs Vital Signs: Vital Signs Temp Pulse Resp BP Pulse Ox 03/30/21 12:00 143 H 03/30/21 08:00 135 H 03/30/21 05:32 94 03/30/21 05:29 36.1 C L 110 H 17 170/86 H 98 03/30/21 04:00 85 03/30/21 00:00 91 03/29/21 23:11 100 03/29/21 21:34 36.7 C 103 H 17 142/64 H 98 03/29/21 20:00 132 H Intake/Output Intake/Output: Intake & Output 03/27/21 03/28/21 03/29/21 03/30/21 23:59 23:59 23:59 23:59 Intake Total 2400 2400 1300 2315.0 Output Total 7243 189 9028 1600 Balance 1400 1425 75 715.0 Meds/Results Medications: Active Medications Generic Name Dose Route Start Last Admin Trade Name Freq PRN Reason Stop Dose Admin Aspirin 81 mg 03/31/21 09:00 Aspirin 81 Mg Chewable Tablet FEED TUBE 04/30/21 09:01 DAILY [facility] Atorvastatin Calcium 80 mg 03/30/21 21:00 Atorvastatin 40 Mg Tablet FEED TUBE 04/29/21 21:01 HS [facility] Baclofen 10 mg 03/30/21 21:00 Baclofen 10 Mg Tablet FEED TUBE 04/29/21 21:01 HS [facility] Bisacodyl 10 mg 03/30/21 14:31 Bisacodyl 10 Mg Suppository RECTAL DAILY PRN Constipation Citalopram Hydrobromide 20 mg 03/31/21 09:00 Citalopram Hydrobromide 20 Mg Tablet FEED TUBE 04/30/21 09:01 DAILY RYLIE Dextrose 12.5 gm 03/25/21 16:45 Dextrose 50% 25 Gm/50 Ml Syringe IV PUSH PRN PRN Hypoglycemia Protocol Glucagon 1 mg 03/25/21 16:45 Glucagon For Inj 1 Mg Vial IM PRN PRN Hypoglycemia Protocol Glucose 15 gm 03/25/21 16:45 Gluco
--- NOTE | 2021-03-30 12:08 | P.PNNP_ITS ---
Progress Note: A&P Assessment and Plan (1) JUVENTINO (acute kidney injury): Code(s): N17.9 - Acute kidney failure, unspecified Status: Acute Assessment and Plan: * suspect she has an element of JUVENTINO/ARF * evaluation to date: - renal ultrasound without obstruction - urinalysis has blood, protein, and sugar - urine electrolytes are pre renal * renal scan with adequate blood flow - possible ATN? * follow repeat labs and UOP (2) Chronic kidney disease: Code(s): N18.9 - Chronic kidney disease, unspecified Status: Chronic Assessment and Plan: * unclear what her baseline creatinine is * however[facility] stage IIIB as a problem/diagnosis * proteinuria suggests a component of diabetes, hypertension, and vascular disease affecting the kidneys * follow trend of labs (3) Hypertension: Code(s): I10 - Essential (primary) hypertension Status: Chronic Assessment and Plan: * fluctuating * consider BP medications per NG tube * follow hemodynamics (4) History of CVA (cerebrovascular accident): Code(s): Z86.73 - Personal history of transient ischemic attack (TIA), and cerebral in farction without residual deficits Status: Inactive Assessment and Plan: * imaging with several strokes * left sided weakness noted (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 Subjective Date/time seen: 03/30/21 12:08 Remains non-communicative/non-verbal and opens eyes at times; she does speak at times but not in regards to conversation or questions; fluctuating agitation noted; apparent seizure activity noted so started on IV antiepileptics; family to discuss among themselves next course of action (full aggressive care versus comfort care measures) given patient's situation. Exam Narrative: Exam Narrative: General: WD/WN female in NAD; unresponsive Heart: normal S1 and S2; tachycardic Lungs: clear to auscultation Abdomen: soft, nontender, nondistended, positive bowel sounds Extremities: no cyanosis or clubbing; no edema Skin: no rash or nodules Objective Data Vital Signs Vital Signs: Vital Signs Temp Pulse Resp BP Pulse Ox 03/30/21 12:00 143 H 03/30/21 08:00 135 H 03/30/21 05:32 94 03/30/21 05:29 36.1 C L 110 H 17 170/86 H 98 03/30/21 04:00 85 03/30/21 00:00 91 03/29/21 23:11 100 03/29/21 21:34 36.7 C 103 H 17 142/64 H 98 03/29/21 20:00 132 H Intake/Output Intake/Output: Intake & Output 03/27/21 03/28/21 03/29/21 03/30/21 23:59 23:59 23:59 23:59 Intake Total 2400 2400 1300 2315.0 Output Total 9810 812 5351 1600 Balance 1400 1425 75 715.0 Meds/Results Medications: Active Medications Generic Name Dose Route Start Last Admin Trade Name Freq PRN Reason Stop Dose Admin Aspirin 81 mg 03/31/21 09:00 Aspirin 81 Mg Chewable Tablet FEED TUBE 04/30/21 09:01
[2021-03-30] MEDS: LORazepam INJ (*CRX) 2 MG/ML VIAL 1 MG IV PUSH (13:40)
[2021-03-30 13:51] LABS: Glucose Point of Care 221 mg/dl (65-105)
[2021-03-30] MEDS: INSULIN ASPART (*BKC) 100 UNITS/ML SUB-Q ×2 (13:51→23:34)
--- NOTE | 2021-03-30 14:13 | PM.IMPN ---
Progress Note: A&P Assessment and Plan (1) Seizure disorder as sequela of cerebrovascular accident: Code(s): I69.398 - Other sequelae of cerebral infarction; G40.909 - Epilepsy, unspecified, not intractable, without status epilepticus Status: Acute Assessment and Plan: Patient was having intermittent seizures clinically yesterday. EEG showing abnormal record to the presence of bihemispheric delta activity but no spikes. Discussed with neurology. Recommended VPA IV 750mg Q12h which was added. Keppra IV continued. Renal function as mentioned below. Neuro following (2) Acute CVA (cerebrovascular accident): Code(s): I63.9 - Cerebral infarction, unspecified Status: Acute Assessment and Plan: Patient presents with altered mental status. CT of the brain showing bilateral stroke right greater than left but no acute findings. She ultimately had an MRI of the brain on March 27 which showed multiple small infarcts left frontal and basal ganglia area. She is NPO currently. She has a rectal aspirin on board. Echocardiogram was essentially normal. Carotid ultrasound was incomplete. Patient's mental status is usually better than this. Seizures better controlled but mental status still poor. Continue to allow for permissive hypertension. Continue PT, OT and speech therapy. Will need statin therapy at time of discharge. NG tube placed yesterday for nutrition. Spoke with family about hospital course and explained to family that patient may be in a persistent vegetative state. We talked about proceeding either with hospice or moving forward with GTube. Neurology following and appreciate their input. Family will let me know of there decision. (3) Altered mental status: Qualifiers: Altered mental status type: unspecified Qualified Code(s): R41.82 - Altered mental status, unspecified Code(s): R41.82 - Altered mental status, unspecified Status: Acute Assessment and Plan: Related to above. LP on 03/27/21 showed 31 red cells and 3 nucleated cells majority of which were lymphocytes. Glucose was 72 and protein was 83. Other studies are pending. All Cultures remain negative. (4) Acute kidney injury superimposed on chronic kidney disease: Code(s): N17.9 - Acute kidney failure, unspecified; N18.9 - Chronic kidney disease, unspecified Status: Acute Assessment and Plan: Baseline creatinine is around 3.0 per chart review. Creatinine 4.1 on admission felt related to dehydration and/or rhabdomyolysis. Renal ultrasound showing no acute issues. Protein to creatinine ratio is 2.7 g. With IV fluids, creatinine has trended down to 2.9 and remaining stable. Continue IV fluids until creatinine kinase levels are below 1000. Appreciate nephrology input. (5) Rhabdomyolysis: Code(s): M62.82 - Rhabdomyolysis Status: Acute Assessment and Plan: Total creatinine kinase climbed to 2620. With IV fluids, levels have dropped to 1055. Hopefully will improve with beter seizure control. Continue IV fluids. Lasix x1. (6) Anemia: Code(s): D64.9 - Anemia, unspecified Status: Acute Assessment and Plan: Hemoglobin low but stable in the 8-9 range. B12 and folate level normal this morning. Iron 29, TIBC 141 with 21% sat. Anemia felt related to her CKD. Continue monitor H&H. (7) Hypertension: Code(s): I10 - Essential (primary) hypertension Status: Chronic Assessment and Plan: Patient's blood pressure was reviewed on 03/30 Blood pressure remains elevated at times (SBP 140-160). Currently on Lopressor IV. Hydralazine available as needed. Continue to allow for permissive hypertension related to her recent stroke. Will continue current medications. (8) Insulin dependent diabetes mellitus: Status: Chronic Assessment and Plan: A1c 8.1. The patient's blood glucose was reviewed on 03/30 Gluc
[2021-03-30] MEDS: FUROSEMIDE INJ 40 MG/4 ML VIAL 20 MG IV PUSH (16:06)
[2021-03-30 16:44] LABS: VDRL Quantitative CSF Nonreactive (Nonreactive)
[2021-03-30 17:13] LABS: Glucose Point of Care 158 mg/dl (65-105)
[2021-03-30] MEDS: levETIRAcetam 500MG/NACL 100ML 500 MG/100 ML BAG 300 MG IVPB (18:13)
[2021-03-30] MEDS: ATORVASTATIN 40 MG TABLET 80 MG FEED TUBE (20:02)
[2021-03-30] MEDS: BACLOFEN 10 MG TABLET FEED TUBE (20:03)
[2021-03-30] MEDS: INSULIN GLARGINE (*BKC) 100 UNITS/ML 8 UNITS SUB-Q (20:03)
--- NOTE | 2021-03-30 20:20 | PC.NURSE ---
Received a phone call this evening from the roll form operator at [facility], Charisse Michaels, requesting an update on the patient's condition. Charisse was brought up to date on the plan of care and she mentioned they would appreciate updates on the patient. They are also willing to accept the patient back at discharge per Charisse. She can be reached at [phone]
[2021-03-30 21:28] LABS: Glucose Point of Care 232 mg/dl (65-105)
[2021-03-30 23:54] LABS: Glucose Point of Care 241 mg/dl (65-105)
[2021-03-31] VITALS (14 sets, daily range): BP systolic 134–174; BP diastolic 88–98; PULSE 88–123; RESP 14–20; TEMP 36–36.4; O2SAT 99–100
[2021-03-31] MEDS: MORPHINE SULFATE (*CRX) 2 MG/ML INJ IV PUSH ×4 (00:23→12:51)
[2021-03-31 00:40] LABS: Herpes Simplex Type 1 DNA PCR Not Detected (Not Detected); Herpes Simplex Type 2 DNA PCR Not Detected (Not Detected)
[2021-03-31] MEDS: levETIRAcetam 500MG/NACL 100ML 500 MG/100 ML BAG 400 MG IVPB (05:17)
[2021-03-31] MEDS: METOPROLOL TARTRATE INJ 5 MG/5 ML VIAL IV PUSH ×4 (05:17→23:09)
[2021-03-31] MEDS: INSULIN ASPART (*BKC) 100 UNITS/ML SUB-Q ×3 (05:18→18:00)
[2021-03-31 06:03] LABS: Hematocrit 27.2 % (37.0-47.0); Hemoglobin 8.5 g/dL (12.0-15.0); Mean Corpuscular HGB Conc 31.3 g/dl (32-36); Mean Corpuscular Volume 92.8 fl (80-100); Mean Platelet Volume 10.2 fl (7.4-10.4); Platelet Count Result 406 k/mm3 (150-375); Red Blood Count 2.93 M/mm3 (4.2-5.4); Red Cell Distribution Width 13.4 % (11.5-14.5); White Blood Count 12.3 K/mm3 (4.5-10.0)
[2021-03-31 06:19] LABS: Alanine Aminotransferase 44 U/L (4-35); Albumin Level 2.4 g/dL (3.5-5.1); Alkaline Phosphatase 86 U/L (38-126); Anion Gap 0 mmol/L (8-16); Aspartate Amino Transferase 51 U/L (14-36); Bilirubin,Total 0.3 mg/dL (0.2-1.3); Blood Urea Nitrogen 34 mg/dL (7-17); Calcium 8.8 mg/dL (8.4-10.2); Carbon Dioxide 37 mmol/L (22-30); Chloride 109 mmol/L (98-107); Creatine Kinase 609 U/L (30-135); Estimated CRCL calculation 34 ml/min; Estimated Glomerular Filt Rate 25; Glucose 237 mg/dL (65-105); Phosphorus 4.3 mg/dL (2.5-4.5); Potassium 3.5 mmol/L (3.4-5.0); Sodium 146 mmol/L (137-145)
[2021-03-31] MEDS: hydrALAZINE HCL 20 MG/ML VIAL 10 MG IV PUSH (06:38)
[2021-03-31 06:59] LABS: Glucose Point of Care 242 mg/dl (65-105)
[2021-03-31 08:08] LABS: Prolactin 28.1 ng/mL (***)
[2021-03-31] MEDS: SODIUM CHLORIDE 0.9% IV 1,000 ML 75 ML IV CONT (08:21)
[2021-03-31] MEDS: LORazepam INJ (*CRX) 2 MG/ML VIAL 1 MG IV PUSH ×2 (08:22→19:37)
[2021-03-31] MEDS: CITALOPRAM HYDROBROMIDE 20 MG TABLET FEED TUBE (08:25)
[2021-03-31] MEDS: ASPIRIN 81 MG CHEWABLE TABLET FEED TUBE (08:25)
[2021-03-31] MEDS: HEPARIN SODIUM 5,000 UNITS/ML VIAL 5000 UNITS SUB-Q ×2 (08:25→20:02)
[2021-03-31 09:56] LABS: CMV DNA Quant PCR IU/mL <200 IU/mL (<200); Cytomegalovirus DNA Quant PCR <2.30 log IU/mL (<2.30); Cytomegalovirus DNA Source CSF
[2021-03-31 11:34] LABS: Glucose Point of Care 223 mg/dl (65-105)
--- NOTE | 2021-03-31 12:37 | PM.IMPN ---
Progress Note: A&P Assessment and Plan (1) Seizure disorder as sequela of cerebrovascular accident: Code(s): I69.398 - Other sequelae of cerebral infarction; G40.909 - Epilepsy, unspecified, not intractable, without status epilepticus Status: Acute Assessment and Plan: Patient was having intermittent seizures clinically. EEG showing abnormal record to the presence of bihemispheric delta activity but no spikes. Discussed with neurology. Recommended VPA IV 750mg Q12h which was added. Keppra IV continued. Renal function as mentioned below. Neuro following. (2) Acute CVA (cerebrovascular accident): Code(s): I63.9 - Cerebral infarction, unspecified Status: Acute Assessment and Plan: Patient presents with altered mental status. CT of the brain showing bilateral strokes right greater than left but no acute findings. She ultimately had an MRI of the brain on March 27 which showed multiple small infarcts left frontal and basal ganglia area. She is NPO currently. She has an aspirin and statin on board. Echocardiogram was essentially normal. Carotid ultrasound was incomplete. Patient's mental status is usually better than this. Seizures better controlled but mental status still poor possibly related to the CVAs. Continue PT, OT and speech therapy. NG tube placed for nutrition. Spoke with father in the room about hospital course and explained to family that patient may be in a persistent vegetative state. We talked about proceeding either with hospice or moving forward with GTube. Neurology following and appreciate their input. Family will let me know of there decision. Spoke with Grandmother. She wishes to have GTube placed. Will consult GI for GTube placement. Do not think patient can have swallow evaluation given her mental status. Will continue PT/OT/ST. (3) Altered mental status: Qualifiers: Altered mental status type: unspecified Qualified Code(s): R41.82 - Altered mental status, unspecified Code(s): R41.82 - Altered mental status, unspecified Status: Acute Assessment and Plan: Related to above. LP on 03/27/21 showed 31 red cells and 3 nucleated cells majority of which were lymphocytes. Glucose was 72 and protein was 83. CSF VDRL and HSV negative. Other studies are pending. All Cultures remain negative. (4) Acute kidney injury superimposed on chronic kidney disease: Code(s): N17.9 - Acute kidney failure, unspecified; N18.9 - Chronic kidney disease, unspecified Status: Acute Assessment and Plan: Baseline creatinine is around 3.0 per chart review. Creatinine 4.1 on admission felt related to dehydration and/or rhabdomyolysis. Renal ultrasound showing no acute issues. Protein to creatinine ratio is 2.7 g. With IV fluids, creatinine has trended down to 2.7 and remaining stable. Stop IV fluids. Appreciate nephrology input. (5) Rhabdomyolysis: Code(s): M62.82 - Rhabdomyolysis Status: Acute Assessment and Plan: Total creatinine kinase climbed to 2620. With IV fluids, levels have dropped to 600. Will stop IV fluids. (6) Anemia: Code(s): D64.9 - Anemia, unspecified Status: Acute Assessment and Plan: Hemoglobin low but stable in the 8-9 range. B12 and folate level normal. Iron 29, TIBC 141 with 21% sat. Anemia felt related to her CKD. Continue monitor H&H. (7) Hypertension: Code(s): I10 - Essential (primary) hypertension Status: Chronic Assessment and Plan: Patient's blood pressure was reviewed on 03/31 Blood pressure remains elevated at times (SBP 140-170). Currently on Lopressor IV. Hydralazine available as needed. Will continue current medications. Will start to advance her medications. (8) Insulin dependent diabetes mellitus: Status: Chronic Assessment and Plan: A1c 8.1. The patient's blood glucose was reviewed on 03/31 Glucose
[2021-03-31] MEDS: LORazepam (*CRX) 0.5 MG TABLET FEED TUBE (13:54)
--- NOTE | 2021-03-31 14:54 | P.PNNP_ITS ---
Progress Note: A&P Assessment and Plan (1) JUVENTINO (acute kidney injury): Code(s): N17.9 - Acute kidney failure, unspecified Status: Acute Assessment and Plan: * suspect she has an element of JUVENTINO/ARF * evaluation to date: - renal ultrasound without obstruction - urinalysis has blood, protein, and sugar - urine electrolytes are pre renal * renal scan with adequate blood flow - possible ATN? * follow repeat labs and UOP (2) Chronic kidney disease: Code(s): N18.9 - Chronic kidney disease, unspecified Status: Chronic Assessment and Plan: * unclear what her baseline creatinine is * however, [facility] list chronic kidney disease stage IIIB as a problem/diagnosis * proteinuria suggests a component of diabetes, hypertension, and vascular disease affecting the kidneys * follow trend of labs (3) Hypertension: Code(s): I10 - Essential (primary) hypertension Status: Chronic Assessment and Plan: * fluctuating * consider BP medications per NG tube * follow hemodynamics (4) History of CVA (cerebrovascular accident): Code(s): Z86.73 - Personal history of transient ischemic attack (TIA), and cerebral infarction without residual deficits Status: Inactive Assessment and Plan: * imaging with several strokes * left sided weakness noted (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 Subjective Date/time seen: 03/31/21 14:55 Opens eyes at times but remains non-verbal; issues with agitation and muscle twitching noted per nursing; otherwise, no real significant change noted at this time. Exam Narrative: Exam Narrative: General: WD/WN female in NAD; unresponsive Heart: normal S1 and S2; tachycardic Lungs: clear to auscultation Abdomen: soft, nontender, nondistended, positive bowel sounds Extremities: no cyanosis or clubbing; no edema Skin: no rash or nodules Objective Data Vital Signs Vital Signs: Vital Signs - 24 hr 03/30/21 16:00 03/30/21 18:13 03/30/21 20:00 Temperature Pulse Rate 95 99 122 H Respiratory Rate Blood Pressure Pulse Oximetry 03/30/21 20:28 03/30/21 23:29 03/31/21 00:00 Temperature 36.3 C L Pulse Rate 102 H 102 H 95 Respiratory Rate 14 Blood Pressure 152/89 H Pulse Oximetry 97 03/31/21 04:00 03/31/21 05:17 03/31/21 06:21 Temperature 36.4 C Pulse Rate 93 100 103 H Respiratory Rate 14 Blood Pressure 174/95 H Pulse Oximetry 100 03/31/21 08:00 03/31/21 11:55 03/31/21 12:00 Temperature Pulse Rate 107 H 98 88 Respiratory Rate Blood Pressure Pulse Oximetry 03/31/21 14:00 Temperature 36.0 C L Pulse Rate 114 H Respiratory Rate 20 Blood Pressure 169/98 H Pulse Oximetry 99 Intake/Output Intake/Output: Intake & Output
--- NOTE | 2021-03-31 14:54 | PM.PNNEP ---
Progress Note: A&P Assessment and Plan (1) JUVENTINO (acute kidney injury): Code(s): N17.9 - Acute kidney failure, unspecified Status: Acute Assessment and Plan: suspect she has an element of JUVENTINO/ARF evaluation to date: - renal ultrasound without obstruction - urinalysis has blood, protein, and sugar - urine electrolytes are pre renal renal scan with adequate blood flow - possible ATN? follow repeat labs and UOP (2) Chronic kidney disease: Code(s): N18.9 - Chronic kidney disease, unspecified Status: Chronic Assessment and Plan: unclear what her baseline creatinine is however, [facility] records list chronic kidney disease stage IIIB as a problem/diagnosis proteinuria suggests a component of diabetes, hypertension, and vascular disease affecting the kidneys follow trend of labs (3) Hypertension: Code(s): I10 - Essential (primary) hypertension Status: Chronic Assessment and Plan: fluctuating consider BP medications per NG tube follow hemodynamics (4) History of CVA (cerebrovascular accident): Code(s): Z86.73 - Personal history of transient ischemic attack (TIA), and cerebral infarction without residual deficits Status: Inactive Assessment and Plan: imaging with several strokes left sided weakness noted (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 Subjective Date/time seen: 03/31/21 14:55 Opens eyes at times but remains non-verbal; issues with agitation and muscle twitching noted per nursing; otherwise, no real significant change noted at this time. Exam Narrative: Exam Narrative: General: WD/WN female in NAD; unresponsive Heart: normal S1 and S2; tachycardic Lungs: clear to auscultation Abdomen: soft, nontender, nondistended, positive bowel sounds Extremities: no cyanosis or clubbing; no edema Skin: no rash or nodules Objective Data Vital Signs Vital Signs: Vital Signs - 24 hr 03/30/21 16:00 03/30/21 18:13 03/30/21 20:00 Temperature Pulse Rate 95 99 122 H Respiratory Rate Blood Pressure Pulse Oximetry 03/30/21 20:28 03/30/21 23:29 03/31/21 00:00 Temperature 36.3 C L Pulse Rate 102 H 102 H 95 Respiratory Rate 14 Blood Pressure 152/89 H Pulse Oximetry 97 03/31/21 04:00 03/31/21 05:17 03/31/21 06:21 Temperature 36.4 C Pulse Rate 93 100 103 H Respiratory Rate 14 Blood Pressure 174/95 H Pulse Oximetry 100 03/31/21 08:00 03/31/21 11:55 03/31/21 12:00 Temperature Pulse Rate 107 H 98 88 Respiratory Rate Blood Pressure Pulse Oximetry 03/31/21 14:00 Temperature 36.0 C L Pulse Rate 114 H Respiratory Rate 20 Blood Pressure 169/98 H Pulse Oximetry 99 Intake/Output Intake/Output: Intake & Output 03/28/21 03/29/21 03/30/21 03/31/21 23:59 23:59 23:59 23:59 Intake Total 2400 1300 3552.0 1807.0 Output Total 975 1225 1600 Balance 1425 75 1952.0 1807.0 Meds/Results Medications: Active Medications Generic Name Dose Route Start Last Admin Trade Name Freq PRN Reason Stop Dose Admin Acetaminophen 650 mg 03/31/21 13:14 03/31/21 15:17 Acetaminophen Elixir 325 Mg/10.15 Ml Udc FEED TUBE 650 mg Q6H PRN Administration Pain Amlodipine Besylate 10 mg 03/31/21 13:20 03/31/21 15:15 Amlodipine Besylate 5 Mg Tablet FEED TUBE 10 mg DAILY RYLIE Administration Aspirin 81 mg 03/31/21 09:00 03/31/21 08:25 Aspirin 81 Mg Chewable Tablet FEED TUBE 04/30/21 09:01 81 mg DAILY RYLIE Administration Atorvastatin Calcium 80 mg 03/30/21 21:00 03/30/21 20:02 Atorvastatin 40 Mg Tablet FEED TUBE 04/29/21 21:01 80 mg HS RYLIE Administrat
[2021-03-31] MEDS: amLODIPine BESYLATE 5 MG TABLET 10 MG FEED TUBE (15:15)
[2021-03-31] MEDS: ACETAMINOPHEN ELIXIR 325 MG/10.15 ML UDC 650 MG FEED TUBE (15:17)
[2021-03-31 17:16] LABS: Varicella IgM Antibody <=0.90 (<=0.90)
[2021-03-31] MEDS: levETIRAcetam 500MG/NACL 100ML 500 MG/100 ML BAG 300 MG IVPB (17:56)
[2021-03-31] MEDS: BACLOFEN 5 MG TABLET FEED TUBE (17:57)
[2021-03-31 17:59] LABS: Glucose Point of Care 244 mg/dl (65-105)
[2021-03-31] MEDS: MICONAZOLE NITRATE 2% VAGINAL CREAM 45 GM TUBE 1 APPFUL VAGINAL (20:01)
[2021-03-31] MEDS: MELATONIN 5 MG TABLET FEED TUBE (20:01)
[2021-03-31] MEDS: BACLOFEN 10 MG TABLET FEED TUBE (20:02)
[2021-03-31] MEDS: ATORVASTATIN 40 MG TABLET 80 MG FEED TUBE (20:02)
[2021-03-31] MEDS: INSULIN GLARGINE (*BKC) 100 UNITS/ML 10 UNITS SUB-Q (20:07)
[2021-03-31 20:16] LABS: Glucose Point of Care 212 mg/dl (65-105)
[2021-03-31 23:18] LABS: Glucose Point of Care 188 mg/dl (65-105)
[2021-04-01] VITALS (14 sets, daily range): BP systolic 122–157; BP diastolic 72–93; PULSE 89–126; RESP 17–24; TEMP 36.1–37.1; O2SAT 96–100
[2021-04-01] MEDS: LORazepam INJ (*CRX) 2 MG/ML VIAL 1 MG IV PUSH (01:49)
[2021-04-01] MEDS: ACETAMINOPHEN ELIXIR 325 MG/10.15 ML UDC 650 MG FEED TUBE ×2 (03:51→16:31)
[2021-04-01 04:38] LABS: Hematocrit 30.5 % (37.0-47.0); Hemoglobin 9.3 g/dL (12.0-15.0); Mean Corpuscular HGB Conc 30.5 g/dl (32-36); Mean Corpuscular Hemoglobin 28.6 pg (26-34); Mean Corpuscular Volume 93.8 fl (80-100); Mean Platelet Volume 10.5 fl (7.4-10.4); Platelet Count Result 311 k/mm3 (150-375); Red Blood Count 3.25 M/mm3 (4.2-5.4); Red Cell Distribution Width 13.6 % (11.5-14.5); White Blood Count 15.6 K/mm3 (4.5-10.0)
[2021-04-01 04:46] LABS: Anion Gap 3 mmol/L (8-16); Blood Urea Nitrogen 33 mg/dL (7-17); Calcium 9.3 mg/dL (8.4-10.2); Carbon Dioxide 32 mmol/L (22-30); Chloride 110 mmol/L (98-107); Creatine Kinase 545 U/L (30-135); Estimated CRCL calculation 37 ml/min; Estimated Glomerular Filt Rate 28; Glucose 225 mg/dL (65-105); Sodium 145 mmol/L (137-145)
[2021-04-01] MEDS: METOPROLOL TARTRATE INJ 5 MG/5 ML VIAL IV PUSH ×3 (05:00→18:07)
[2021-04-01] MEDS: levETIRAcetam 500MG/NACL 100ML 500 MG/100 ML BAG 400 MG IVPB ×2 (05:01→18:11)
[2021-04-01] MEDS: INSULIN ASPART (*BKC) 100 UNITS/ML SUB-Q (05:05)
[2021-04-01 05:07] LABS: Glucose Point of Care 211 mg/dl (65-105)
[2021-04-01] MEDS: MORPHINE SULFATE (*CRX) 2 MG/ML INJ IV PUSH (06:12)
--- NOTE | 2021-04-01 07:09 | WPDGICN ---
Assessment and Plan Assessment and plan (1) Dysphagia, neurologic: Code(s): R13.19 - Other dysphagia Status: Acute Assessment and Plan: apparently she had been eating prior to admission. She denies an NG tube. Family has agreed to placement of a G-tube. PEG will be placed today (2) Anemia: Code(s): D64.9 - Anemia, unspecified Status: Acute Assessment and Plan: she has chronic anemia. Her blood counts however are now stable, and there is no sign of bleeding (3) Moyamoya disease: Code(s): I67.5 - Moyamoya disease Status: Chronic Assessment and Plan: this has resulted in her severe neurologic deficit, multiple CVAs. She is followed by Neurology (4) Acute kidney injury superimposed on chronic kidney disease: Code(s): N17.9 - Acute kidney failure, unspecified; N18.9 - Chronic kidney disease, unspecified Status: Acute Assessment and Plan: Her creatinine is improving. 2.5 at present GI Consult Note Consult date/time: 04/01/21 07:09 HPI: Jorge Alberto Saldaña is a 30 year old female patient from [employer] [facility] [employer] with the past medical history of a CVA with left side it hemo plegia. The patient is typically alert and orientated x4 according to the prison. on admission she wa nonverbal,yelling out loudly. She was very anxious and tachycardic. Her blood sugar was checked and she was in the 100s. CT of the brain was read as bilateral cerebral infarcts, right greater than the left. No acute intracranial finding. Left arm and leg or flaccid. Patient has limited movement to her right arm and right leg. She typically takes an aspirin at the prison. White count 13.4. H&H is 9.5 and 29.8. Patient's BUN is 39 creatinine is 4.10 GFR 16. The patient is nonverbal some unable to obtain any information. she has a diagnosis of Moyamooya, an abnormality of intracerebral blood vessels that results in fragile collaterals and consequently, in her case cerebrovascular accidents. this has left her with left-sided hemiplegia. Review of Systems Review of Systems: All systems reviewed & are unremarkable except as noted in HPI and below [facility] Past Medical History Medical History Chronic kidney disease Depression Finger amputation, no complication History of CVA (cerebrovascular accident) Hypertension Insulin dependent diabetes mellitus Last hemoglobin A1c 8.1 Moyamoya disease Family History Family History Mother Diabetes mellitus ESRD (end stage renal disease) Social History Social History Social History: The patient lives at [facility]. Silvia zapata is listed as her advance directive healthcare proxy. The patient is listed as a full code. She is disabled. She is single never . No children. Smoking status is unknown. Smoking status: Never smoker Spiritual care concerns: No Meds Home Medications and Allergies Home Medications Medication Instructions Recorded Confirmed Type Adult Low Dose Aspirin 81 mg PO DAILY 03/25/21 03/25/21 History Blue-Emu Lidocaine Patch 1 patch DAILY 03/25/21 03/25/21 History Humalog U-100 Insulin 5 units SUBCUT TIDWM 03/25/21 03/25/21 History Lantus Solostar U-100 Insulin 10 units SUBCUT HS 03/25/21 03/25/21 History Miralax 17 g PO DAILY 03/25/21 03/25/21 History [place] 5 - 325 mg PO Q12-24H PRN 03/25/21 03/25/21 History Senna Plus (senna-docusate) 8.6 - 50 mg PO BID 03/25/21 03/25/21 History acetaminophen 650 mg PO Q6-8H PRN 03/25/21 03/25/21 History amlodipine 10 mg PO DAILY 03/25/21 03/25/21 History atorvastatin 80 mg PO HS 03/25/21 03/25/21 History baclofen 10 mg PO HS 03/25/21 03/25/21 History bisacodyl 10 mg RECTAL DAILY PRN 03/25/21 03/25/21 History citalopram 20 mg PO DAILY 03/25/21 03/25/21 History
[2021-04-01] MEDS: CITALOPRAM HYDROBROMIDE 20 MG TABLET FEED TUBE (08:33)
[2021-04-01] MEDS: BACLOFEN 5 MG TABLET FEED TUBE ×2 (08:33→16:31)
[2021-04-01] MEDS: polyethylene glycoL 3350 17 GM POWD.PACK FEED TUBE (08:33)
[2021-04-01] MEDS: amLODIPine BESYLATE 5 MG TABLET 10 MG FEED TUBE (08:33)
[2021-04-01 09:14] LABS: Partial Thromboplastin Time 28.4 SECONDS (22.3-36.8); Prothrombin Time 14.1 Seconds (11.1-14.7)
--- NOTE | 2021-04-01 09:45 | PM.IMPN ---
Progress Note: A&P Assessment and Plan (1) Seizure disorder as sequela of cerebrovascular accident: Code(s): I69.398 - Other sequelae of cerebral infarction; G40.909 - Epilepsy, unspecified, not intractable, without status epilepticus Status: Acute Assessment and Plan: Patient was having intermittent seizures clinically. EEG showing abnormal record to the presence of bihemispheric delta activity but no spikes. Discussed with neurology. Recommended VPA IV 750mg Q12h which was added. Keppra IV continued. Renal function as mentioned below. Reconsult Neuro. Spoke with father by phone and he was updated. (2) Acute CVA (cerebrovascular accident): Code(s): I63.9 - Cerebral infarction, unspecified Status: Acute Assessment and Plan: Patient presents with altered mental status. CT of the brain showing bilateral strokes right greater than left but no acute findings. She ultimately had an MRI of the brain on March 27 which showed multiple small infarcts left frontal and basal ganglia area. She is NPO currently. She has an aspirin and statin on board. Echocardiogram was essentially normal. Carotid ultrasound was incomplete. Patient's mental status is usually better than this. Seizures better controlled but mental status still poor possibly related to the CVAs. NG tube placed for nutrition as we monitored for improvement. Mental status still poor. Spoke with family that patient may be in a persistent vegetative state. We talked about proceeding either with hospice or moving forward with GTube. Neurology following and appreciate their input. Family wishes to have GTube placed which is being arranged for today. Will continue PT/OT/ST. Reconsult Neuro. Repeat carotid doppler (3) Altered mental status: Qualifiers: Altered mental status type: unspecified Qualified Code(s): R41.82 - Altered mental status, unspecified Code(s): R41.82 - Altered mental status, unspecified Status: Acute Assessment and Plan: B12/Folate/TSH normal. MRI showing acute CVA. LP on 03/27/21 showed 31 red cells and 3 nucleated cells majority of which were lymphocytes. Glucose was 72 and protein was 83. CSF VDRL and HSV negative. Other studies are still pending. All cultures remain negative. Dale the AMS related to acute CVA. Will check Ammonia level. Minimize mediciations that may affect mental status. Baclofen advanced due to spasticity. (4) Acute kidney injury superimposed on chronic kidney disease: Code(s): N17.9 - Acute kidney failure, unspecified; N18.9 - Chronic kidney disease, unspecified Status: Acute Assessment and Plan: Baseline creatinine is around 3.0 per chart review. Creatinine 4.1 on admission felt related to dehydration and/or rhabdomyolysis. Renal ultrasound showing no acute issues. Protein to creatinine ratio is 2.7 g. With IV fluids, creatinine has trended down to 2.7; IV fluids stopped yesterday and Cr even better at 2.5 today. Appreciate nephrology input. (5) Rhabdomyolysis: Code(s): M62.82 - Rhabdomyolysis Status: Acute Assessment and Plan: Total creatinine kinase climbed to 2620. With IV fluids, levels have dropped to 545. IV fluids have already been stopped. (6) Anemia: Code(s): D64.9 - Anemia, unspecified Status: Acute Assessment and Plan: Hemoglobin low but stable in the 8-9 range. B12 and folate level normal. Iron 29, TIBC 141 with 21% sat. Anemia felt related to her CKD. Continue to monitor H&H. (7) Hypertension: Code(s): I10 - Essential (primary) hypertension Status: Chronic Assessment and Plan: Patient's blood pressure was reviewed on 04/01 Blood pressure better controlled (SBP 130-150). Currently on Lopressor IV and Norvasc. Hydralazine available as needed. Will continue current medications. Will start to change to GTube route once procedure complete.
[2021-04-01 10:54] LABS: Ammonia < 9 umol/L (9-30)
--- NOTE | 2021-04-01 11:05 | PC.NURSE ---
Pt to GI lab per alicia. Report to JENIFER Doe.
--- NOTE | 2021-04-01 11:29 | PCNFU ---
Nutrition Follow-Up Complete: Inadequate Oral Intake as related to AMS as evidenced by NPO x 5 days Goal: Meet estimated nutritional needs Progressing towards goal. We will continue current goal. Pt current nutrition is NPO for Gtube today. Last recorded weight is 94.8 kg, no new weight. Recommend: new weight. Bowel Motility:No BM reported. Labs Reviewed:GFR 28,BUN 33,Cr 2.5,Glu 225,Hct 30.5,Hgb 9.3 Meds Noted:Keppra,NovoLog,Lantus, Miralax,Lopressor. Additional Notes: Patient NPO for Gtube today. Recommend restarting tube feeding of Nepro, goal rate at 40 ml/hr which will provide patient with 1584 kcals and 71 gms protein. Monitoring: Will monitor every Sunday and Sunday.
--- NOTE | 2021-04-01 11:49 | WPDANESEPPF ---
Anes - Initial Pre Proc Eval Procedure: Operation Date: 04/01/21 12:00 Proposed Procedures p Percutaneous Endoscopic Gastrostomy - Troy Rothman MD Date/Time: 04/01/21 11:49 Surgeon: Aamir Vásquez MD Pre Op Diagnosis: ALTERED MENTAL STATUS Patient Data Age: 30 Gender: F Height: 5 ft 8 in Weight: 94.8 kg Last Vital Signs Temp 97.0 F L 04/01/21 11:12 Pulse 98 04/01/21 11:12 Resp 20 04/01/21 11:12 BP 157/91 H 04/01/21 11:12 Pulse Ox 98 04/01/21 11:12 Allergies Allergy/AdvReac Type Severity Reaction Status Date / Time peanut Allergy Unknown Verified 04/01/21 11:06 Home Medications Medication Instructions Recorded Confirmed Type Adult Low Dose Aspirin 81 mg PO DAILY 03/25/21 03/25/21 History Blue-Emu Lidocaine Patch 1 patch DAILY 03/25/21 03/25/21 History Humalog U-100 Insulin 5 units SUBCUT TIDWM 03/25/21 03/25/21 History Lantus Solostar U-100 Insulin 10 units SUBCUT HS 03/25/21 03/25/21 History Miralax 17 g PO DAILY 03/25/21 03/25/21 History [place] 5 - 325 mg PO Q12-24H PRN 03/25/21 03/25/21 History Senna Plus (senna-docusate) 8.6 - 50 mg PO BID 03/25/21 03/25/21 History acetaminophen 650 mg PO Q6-8H PRN 03/25/21 03/25/21 History amlodipine 10 mg PO DAILY 03/25/21 03/25/21 History atorvastatin 80 mg PO HS 03/25/21 03/25/21 History baclofen 10 mg PO HS 03/25/21 03/25/21 History bisacodyl 10 mg RECTAL DAILY PRN 03/25/21 03/25/21 History citalopram 20 mg PO DAILY 03/25/21 03/25/21 History glucagon 1 mg PO PRN PRN 03/25/21 03/25/21 History hydrochlorothiazide 25 mg PO DAILY 03/25/21 03/25/21 History labetalol 400 mg PO Q12-24H 03/25/21 03/25/21 History melatonin 5 mg PO HS 03/25/21 03/25/21 History Laboratory Tests 03/27/21 03/31/21 03/31/21 08:16 17:56 19:57 WBC RBC Hgb Hct MCV MCH MCHC RDW Plt Count MPV PT INR APTT Sodium Potassium Chloride Carbon Dioxide Anion Gap BUN Creatinine Estim Creat Clear Calc Estimated GFR Glucose POC Capillary Glucose 244 mg/dl H mg/dl 212 mg/dl H mg/dl (65-105) (65-105) Calcium Ammonia Total Creatine Kinase VZV IgG Antibody 1910.00 Index Index (>=165.00) VZV IgM Antibody <=0.90 (<=0.90) 03/31/21 04/01/21 04/01/21 23:03 04:31 04:31 WBC 15.6 K/mm3 H K/mm3 (4.5-10.0) RBC 3.25 M/mm3 L M/mm3 (4.2-5.4) Hgb 9.3 g/dL L g/dL (12.0-15.0) Hct 30.5 % L % (37.0-47.0) MCV 93.8 fl fl (80-100) MCH 28.6 pg pg (26-34) MCHC 30.5 g/dl L g/dl (32-36) RDW 13.6 % % (11.5-14.5) Plt Count 311 k/mm3 k/mm3 (150-375) MPV 10.5 fl H fl (7.4-10.4) PT INR APTT Sodium 145 mmol/L mmol/L (137-145) Potassium 4.0 mmol/L mmol/L (3.4-5.0) Chloride 110 mmol/L H mmol/L (98-107) Carbon Dioxide 32 mmol/L H mmol/L (22-30) Anion Gap 3 mmol/L L mmol/L (8-16) BUN 33 mg/dL H mg/dL (7-17) Creatinine 2.50 mg/dL H mg/dL (0.7-1.0) Estim Creat Clear Calc 37 ml/min ml/min Estimated GFR 28 L (59 - ) Glucose 225 mg/dL H mg/dL (65-105) POC Capillary Glucose 188 mg/dl H mg/dl (65-105) Calcium 9.3 mg/dL mg/dL (8.4-10.2) Ammonia Total Creatine Kinase 545 U/L H U/L (30-135) VZV IgG Antibody VZV IgM Antibody 04/01/21 04/01/21 04/01/21 05:04 08:35 10:38 WBC RBC Hgb Hct MCV MCH MCHC RDW Plt Count
[2021-04-01 11:57] LABS: Glucose Point of Care 122 mg/dl (65-105)
[2021-04-01] MEDS: EPINEPHrine INJ 1 MG/10 ML SYRINGE XX (12:40)
--- NOTE | 2021-04-01 12:52 | SUR.PHASEII ---
Dr. Rothman aware of positive H pylori.
[2021-04-01 13:05] LABS: Glucose Point of Care 119 mg/dl (65-105)
--- NOTE | 2021-04-01 13:12 | PC.NURSE ---
Pt returned from GI lab per alicia. Report received from JENIFER Savage.
[2021-04-01 14:29] LABS: Add Urine Microscopic? YES; Appearance Urine Cloudy (Clear); Bacteria Urine Trace /hpf; Bilirubin Urine Negative (Negative); Blood Urine 1+ (Negative); Color Urine Yellow (Yellow); Glucose Urine UA 1+ mg/dL (Negative); Ketones Urine Trace mg/dL (Negative); Leukocyte Esterase Ur Negative LEU/UL (Negative); Mucus Urine Rare /lpf; Nitrate Urine Negative (Negative); Protein Urine 3+ mg/dL (Negative); Specific Grav Ur 1.027 (1.001-1.035); Squamous Epithelial Cell Urine Rare /hpf (Few); Urobilinogen Urine Negative mg/dL (<2.0)
--- NOTE | 2021-04-01 15:55 | PC.NURSE ---
On 04/01/21, the student, [Carrol Nixon ], provided care and completed [facility] documentation on this patient. I have reviewed the student's documentation and agree with the findings.
--- NOTE | 2021-04-01 15:56 | PC.NURSE ---
On 04/01/21, the student, [ Cathie Hirsch], provided care and completed [facility] documentation on this patient. I have reviewed the student's documentation and agree with the findings.
--- NOTE | 2021-04-01 16:33 | WPDGIPROGNO ---
Progress Note: A&P Assessment and Plan (1) Bleeding chronic duodenal ulcer: Code(s): K26.4 - Chronic or unspecified duodenal ulcer with hemorrhage Status: Acute Additional Plan will begin triple therapy with lansoprazole, amoxicillin, and metronidazole. she should take these for 10 days. Then PPI for at least 8 weeks. Clarithromycin is contraindicated due to interaction with amlodipine Subjective Date/time seen: 04/01/21 16:33 Duodenal ulcer with active oozing found when placing PEG tube. H Pylori was strongly, almost immediately, positive. Objective Data Vital Signs Vital Signs: Vital Signs - 24 hr 03/31/21 17:57 03/31/21 20:00 03/31/21 22:53 Temperature Pulse Rate 123 H 97 Respiratory Rate Blood Pressure Pulse Oximetry 99 03/31/21 23:04 03/31/21 23:09 04/01/21 00:00 Temperature 36.1 C L Pulse Rate 105 H 110 H 94 Respiratory Rate 18 Blood Pressure 134/88 Pulse Oximetry 100 04/01/21 03:53 04/01/21 04:00 04/01/21 05:00 Temperature 36.1 C L Pulse Rate 113 H 126 H 106 H Respiratory Rate 20 Blood Pressure 154/92 H Pulse Oximetry 100 04/01/21 08:00 04/01/21 08:18 04/01/21 11:12 Temperature 37.1 C 36.1 C L Pulse Rate 89 90 98 Respiratory Rate 20 20 Blood Pressure 138/72 157/91 H Pulse Oximetry 100 98 04/01/21 12:38 04/01/21 12:48 04/01/21 12:58 Temperature Pulse Rate 100 97 92 Respiratory Rate 24 H 17 19 Blood Pressure 122/80 127/83 131/87 Pulse Oximetry 100 97 97 04/01/21 13:15 04/01/21 14:37 Temperature 36.2 C L Pulse Rate 98 114 H Respiratory Rate 20 Blood Pressure 147/93 H Pulse Oximetry 98 Intake/Output Intake/Output: Intake & Output 03/29/21 03/30/21 03/31/21 04/01/21 23:59 23:59 23:59 23:59 Intake Total 1300 3552.0 2907.0 1226.0 Output Total 1225 1600 450 750 Balance 75 1952.0 2457.0 476.0 Meds/Results Medications: Active Medications Generic Name Dose Route Start Last Admin Trade Name Freq PRN Reason Stop Dose Admin Acetaminophen 650 mg 03/31/21 13:14 04/01/21 16:31 Acetaminophen Elixir 325 Mg/10.15 Ml Udc FEED TUBE 650 mg Q6H PRN Administration Pain Amlodipine Besylate 10 mg 03/31/21 13:20 04/01/21 08:33 Amlodipine Besylate 5 Mg Tablet FEED TUBE 10 mg DAILY RYLIE Administration Amoxicillin 1,000 mg 04/01/21 21:00 Amoxicillin 250 Mg/5 Ml Suspension PO Q12HR RYLIE Atorvastatin Calcium 80 mg 03/30/21 21:00 03/31/21 20:02 Atorvastatin 40 Mg Tablet FEED TUBE 04/29/21 21:01 80 mg HS RYLIE Administration Baclofen 10 mg 03/30/21 21:00 03/31/21 20:02 Baclofen 10 Mg Tablet FEED TUBE 04/29/21 21:01 10 mg HS RYLIE Administration Baclofen 5 mg 03/31/21 17:00 04/01/21 16:31 Baclofen 5 Mg Tablet FEED TUBE 5 mg BID RYLIE Administration Bisacodyl 10 mg 03/30/21 14:31 Bisacodyl 10 Mg Suppository RECTAL DAILY PRN Constipation Citalopram Hydrobromide 20 mg 03/31/21 09:00 04/01/21 08:33 Citalopram Hydrobromide 20 Mg Tablet FEED TUBE 04/30/21 09:01 20 mg DAILY RYLIE Administration Dextrose 12.5 gm 03/25/21 16:45 Dextrose 50% 25 Gm/50 Ml Syringe IV PUSH PRN PRN Hypoglycemia Protocol Glucagon 1 mg 03/25/21 16:45 Glucagon For Inj 1 Mg Vial IM PRN PRN Hypoglycemia Protocol Glucose 15 gm 03/25/21 16:45 Glucose Oral Gel 15 Gm Of Glucse In 37.5 Gm Tube PO PRN PRN Hypoglycemia Protocol Heparin Sodium (Porcine) 5,000 units 03/29/21 21:00 03/31/21 20:02 Heparin Sodium 5,000 Units/Ml Vial SUB-Q 5,000 units Q12HR RYLIE Administration Hydralazine HCl 10 mg 03/26/21 20:03 03/31/21 06:38 Hydralazine Hcl 20 Mg/Ml Vial IV PUSH 10 mg Q6H PRN Administration Blood Pressure - High Dextrose 1,000 mls @ 100 mls/hr 03/25/21 16:45 Dextrose 5% 1,000 Ml IVPB PRN PRN Hypoglycemia Protocol Levetiracetam 500 mg in 100 mls @ 400 mls/hr 03/26/21 18:55
[2021-04-01] MEDS: LANSOPRAZOLE ORAL SUSP 30 MG/10 ML ORAL.SUSP FEED TUBE (18:06)
[2021-04-01 18:24] LABS: Glucose Point of Care 168 mg/dl (65-105)
[2021-04-01] MEDS: INSULIN GLARGINE (*BKC) 100 UNITS/ML 10 UNITS SUB-Q (20:24)
[2021-04-01] MEDS: AMOXICILLIN 250 MG/5 ML SUSPENSION 1000 MG FEED TUBE (20:41)
[2021-04-01] MEDS: ATORVASTATIN 40 MG TABLET 80 MG FEED TUBE (20:41)
[2021-04-01] MEDS: metroNIDAZOLE 250 MG TABLET 500 MG FEED TUBE (20:42)
[2021-04-01] MEDS: MELATONIN 5 MG TABLET FEED TUBE (20:42)
[2021-04-01] MEDS: BACLOFEN 10 MG TABLET FEED TUBE (20:42)
[2021-04-01] MEDS: MICONAZOLE NITRATE 2% VAGINAL CREAM 45 GM TUBE 1 APPFUL VAGINAL (20:45)
[2021-04-01] MEDS: HEPARIN SODIUM 5,000 UNITS/ML VIAL 5000 UNITS SUB-Q (20:56)
[2021-04-01 21:37] LABS: Glucose Point of Care 152 mg/dl (65-105)
[2021-04-02] VITALS (8 sets, daily range): BP systolic 153–176; BP diastolic 86–93; PULSE 106–129; RESP 18–38; TEMP 36.6–37; O2SAT 90–94
[2021-04-02] MEDS: METOPROLOL TARTRATE INJ 5 MG/5 ML VIAL IV PUSH ×4 (00:04→17:03)
[2021-04-02 00:12] LABS: Glucose Point of Care 141 mg/dl (65-105)
[2021-04-02 05:41] LABS: Basophils Absolute Auto 0.1 K/mm3 (0.0-0.1); Basophils Percent Auto 0.3 % (0.2-1.2); Eosinophils Absolute Auto 0.2 K/mm3 (0-0.3); Eosinophils Percent Auto 0.9 % (0-4.4); Hematocrit 29.7 % (37.0-47.0); Hemoglobin 9.2 g/dL (12.0-15.0); Immature Granulocyte Absolute 0.13 K/mm3 (0.00-0.031); Immature Granulocyte Percent A 0.7 % (0-0.5); Lymphocytes Percent Auto 18.5 % (18.3-44.2); Mean Corpuscular Hemoglobin 28.8 pg (26-34); Mean Corpuscular Volume 92.8 fl (80-100); Mean Platelet Volume 10.7 fl (7.4-10.4); Monocytes Percent Auto 5.4 % (2.6-8.5); Neutrophils Absolute Auto 13.6 K/mm3 (1.3-6.7); Neutrophils Percent Auto 74.2 % (45.5-73.1); Platelet Count Result 443 k/mm3 (150-375); Red Cell Distribution Width 13.7 % (11.5-14.5); White Blood Count 18.4 K/mm3 (4.5-10.0)
[2021-04-02 05:54] LABS: Alanine Aminotransferase 46 U/L (4-35); Albumin Level 2.9 g/dL (3.5-5.1); Alkaline Phosphatase 87 U/L (38-126); Anion Gap 3 mmol/L (8-16); Aspartate Amino Transferase 84 U/L (14-36); Bilirubin,Total 0.4 mg/dL (0.2-1.3); Blood Urea Nitrogen 34 mg/dL (7-17); Calcium 9.6 mg/dL (8.4-10.2); Carbon Dioxide 33 mmol/L (22-30); Chloride 112 mmol/L (98-107); Estimated CRCL calculation 30 ml/min; Estimated Glomerular Filt Rate 22; Glucose 142 mg/dL (65-105); Phosphorus 3.3 mg/dL (2.5-4.5); Sodium 148 mmol/L (137-145)
[2021-04-02] MEDS: levETIRAcetam 500MG/NACL 100ML 500 MG/100 ML BAG 400 MG IVPB ×2 (06:26→17:02)
[2021-04-02 06:31] LABS: Glucose Point of Care 135 mg/dl (65-105)
[2021-04-02] MEDS: polyethylene glycoL 3350 17 GM POWD.PACK FEED TUBE (09:35)
[2021-04-02] MEDS: HEPARIN SODIUM 5,000 UNITS/ML VIAL 5000 UNITS SUB-Q ×2 (09:35→20:52)
[2021-04-02] MEDS: metroNIDAZOLE 250 MG TABLET 500 MG FEED TUBE ×2 (09:35→20:53)
[2021-04-02] MEDS: CITALOPRAM HYDROBROMIDE 20 MG TABLET FEED TUBE (09:35)
[2021-04-02] MEDS: ACETAMINOPHEN ELIXIR 325 MG/10.15 ML UDC 650 MG FEED TUBE ×2 (09:36→17:02)
[2021-04-02] MEDS: BACLOFEN 5 MG TABLET FEED TUBE ×2 (09:36→17:03)
[2021-04-02] MEDS: amLODIPine BESYLATE 5 MG TABLET 10 MG FEED TUBE (09:39)
[2021-04-02] MEDS: AMOXICILLIN 250 MG/5 ML SUSPENSION 1000 MG FEED TUBE ×2 (09:40→20:52)
[2021-04-02] MEDS: LANSOPRAZOLE ORAL SUSP 30 MG/10 ML ORAL.SUSP FEED TUBE ×2 (09:40→17:02)
--- NOTE | 2021-04-02 10:19 | P.PNNP_ITS ---
Progress Note: A&P Assessment and Plan (1) JUVENTINO (acute kidney injury): Code(s): N17.9 - Acute kidney failure, unspecified Status: Acute Assessment and Plan: * suspect she has an element of JUVENTINO/ARF * evaluation to date: - renal ultrasound without obstruction - urinalysis has blood, protein, and sugar - urine electrolytes are pre renal -no eosinophilia * renal scan with adequate blood flow, uptake without excretion: possible ATN * Creatinine is variable. 3.1 today. (2) Chronic kidney disease: Code(s): N18.9 - Chronic kidney disease, unspecified Status: Chronic Assessment and Plan: * unclear what her baseline creatinine is * however, [facility] records list chronic kidney disease stage IIIB as a problem/diagnosis * proteinuria suggests a component of diabetes, hypertension, and vascular disease affecting the kidneys * follow trend of labs (3) Hypertension: Code(s): I10 - Essential (primary) hypertension Status: Chronic Assessment and Plan: * Systolic is in the 150s. * With acute kidney injury, leave blood pressure mildly elevated. * She is on metoprolol and amlodipine. 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 Subjective Date/time seen: 04/02/21 10:19 Interval history: patient was crying out and wincing for few minutes. Then rested comfortably. Not responsive. Eyes closed. Does not follow commands Exam Narrative: Exam Narrative: General: WD/WN female in NAD; unresponsive Heart: normal S1 and S2; tachycardic Lungs: clear Abdomen: soft, nontender, nondistended, positive bowel sounds Extremities: no cyanosis or clubbing; no edema Skin: no rash Objective Data Vital Signs Vital Signs: Vital Signs - 24 hr 04/01/21 11:12 04/01/21 12:38 04/01/21 12:48 Temperature 36.1 C L Pulse Rate 98 100 97 Respiratory Rate 20 24 H 17 Blood Pressure 157/91 H 122/80 127/83 Pulse Oximetry 98 100 97 04/01/21 12:58 04/01/21 13:15 04/01/21 14:37 Temperature 36.2 C L Pulse Rate 92 98 114 H Respiratory Rate 19 20 Blood Pressure 131/87 147/93 H Pulse Oximetry 97 98 04/01/21 18:07 04/01/21 21:24 04/02/21 00:04 Temperature 36.6 C Pulse Rate 102 H 122 H 119 H Respiratory Rate 20 Blood Pressure 151/91 H Pulse Oximetry 96 04/02/21 06:07 04/02/21 06:26 Temperature 37.0 C Pulse Rate 129 H 129 H Respiratory Rate 18 Blood Pressure 159/89 H Pulse Oximetry 94 Intake/Output Intake/Output: Intake & Output 03/30/21 03/31/21 04/01/21 04/02/21 23
--- NOTE | 2021-04-02 10:19 | PM.PNNEP ---
Progress Note: A&P Assessment and Plan (1) JUVENTINO (acute kidney injury): Code(s): N17.9 - Acute kidney failure, unspecified Status: Acute Assessment and Plan: suspect she has an element of JUVENTINO/ARF evaluation to date: - renal ultrasound without obstruction - urinalysis has blood, protein, and sugar - urine electrolytes are pre renal -no eosinophilia renal scan with adequate blood flow, uptake without excretion: possible ATN Creatinine is variable. 3.1 today. (2) Chronic kidney disease: Code(s): N18.9 - Chronic kidney disease, unspecified Status: Chronic Assessment and Plan: unclear what her baseline creatinine is however, [facility] records list chronic kidney disease stage IIIB as a problem/diagnosis proteinuria suggests a component of diabetes, hypertension, and vascular disease affecting the kidneys follow trend of labs (3) Hypertension: Code(s): I10 - Essential (primary) hypertension Status: Chronic Assessment and Plan: Systolic is in the 150s. With acute kidney injury, leave blood pressure mildly elevated. She is on metoprolol and amlodipine. 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 Subjective Date/time seen: 04/02/21 10:19 Interval history: patient was crying out and wincing for few minutes. Then rested comfortably. Not responsive. Eyes closed. Does not follow commands Exam Narrative: Exam Narrative: General: WD/WN female in NAD; unresponsive Heart: normal S1 and S2; tachycardic Lungs: clear Abdomen: soft, nontender, nondistended, positive bowel sounds Extremities: no cyanosis or clubbing; no edema Skin: no rash Objective Data Vital Signs Vital Signs: Vital Signs - 24 hr 04/01/21 11:12 04/01/21 12:38 04/01/21 12:48 Temperature 36.1 C L Pulse Rate 98 100 97 Respiratory Rate 20 24 H 17 Blood Pressure 157/91 H 122/80 127/83 Pulse Oximetry 98 100 97 04/01/21 12:58 04/01/21 13:15 04/01/21 14:37 Temperature 36.2 C L Pulse Rate 92 98 114 H Respiratory Rate 19 20 Blood Pressure 131/87 147/93 H Pulse Oximetry 97 98 04/01/21 18:07 04/01/21 21:24 04/02/21 00:04 Temperature 36.6 C Pulse Rate 102 H 122 H 119 H Respiratory Rate 20 Blood Pressure 151/91 H Pulse Oximetry 96 04/02/21 06:07 04/02/21 06:26 Temperature 37.0 C Pulse Rate 129 H 129 H Respiratory Rate 18 Blood Pressure 159/89 H Pulse Oximetry 94 Intake/Output Intake/Output: Intake & Output 03/30/21 03/31/21 04/01/21 04/02/21 23:59 23:59 23:59 23:59 Intake Total 3552.0 2907.0 1549.0 663.5 Output Total 3168 780 7813 700 Balance 1952.0 2457.0 499.0 -36.5 Meds/Results Medications: Active Medications Generic Name Dose Route Start Last Admin Trade Name Freq PRN Reason Stop Dose Admin Acetaminophen 650 mg 03/31/21 13:14 04/02/21 09:36 Acetaminophen Elixir 325 Mg/10.15 Ml Udc FEED TUBE 650 mg Q6H PRN Administration Pain Amlodipine Besylate 10 mg 03/31/21 13:20 04/02/21 09:39 Amlodipine Besylate 5 Mg Tablet FEED TUBE 10 mg DAILY RYLIE Administration Amoxicillin 1,000 mg 04/01/21 21:00 04/02/21 09:40 Amoxicillin 250 Mg/5 Ml Suspension FEED TUBE 1,000 mg Q12HR RYLIE Administration Atorvastatin Calcium 80 mg 03/30/21 21:00 04/01/21 20:41 Atorvastatin 40 Mg Tablet FEED TUBE 04/29
--- NOTE | 2021-04-02 10:26 | PM.IMPN ---
Progress Note: A&P Assessment and Plan (1) Seizure disorder as sequela of cerebrovascular accident: Code(s): I69.398 - Other sequelae of cerebral infarction; G40.909 - Epilepsy, unspecified, not intractable, without status epilepticus Status: Acute Assessment and Plan: Patient was having intermittent seizures clinically. EEG showing abnormal record to the presence of bihemispheric delta activity but no spikes. VPA IV 750mg Q12h Keppra IV continued. PEG placed 04/01 Likely return to NH soon. Px very poor. (2) Acute CVA (cerebrovascular accident): Code(s): I63.9 - Cerebral infarction, unspecified Status: Acute Assessment and Plan: Patient presents with altered mental status. CT of the brain showing bilateral strokes right greater than left but no acute findings. She ultimately had an MRI of the brain on March 27 which showed multiple small infarcts left frontal and basal ganglia area. She is NPO currently. Aspirin and statin, but ASA on hold 04/01 due to DU. Echocardiogram was essentially normal. Carotid ultrasound was incomplete. Mental status improving but still not talkative as decscribed at baseline. (3) Altered mental status: Qualifiers: Altered mental status type: unspecified Qualified Code(s): R41.82 - Altered mental status, unspecified Code(s): R41.82 - Altered mental status, unspecified Status: Acute Assessment and Plan: B12/Folate/TSH normal. MRI showing acute CVA. LP on 03/27/21 showed 31 red cells and 3 nucleated cells majority of which were lymphocytes. Glucose was 72 and protein was 83. CSF VDRL and HSV negative. Other studies are still pending. All cultures remain negative. [place] the AMS related to acute CVA. Will check Ammonia level. Minimize mediciations that may affect mental status. Baclofen advanced due to spasticity. (4) Acute kidney injury superimposed on chronic kidney disease: Code(s): N17.9 - Acute kidney failure, unspecified; N18.9 - Chronic kidney disease, unspecified Status: Acute Assessment and Plan: Baseline creatinine is around 3.0 per chart review. Creatinine 4.1 on admission felt related to dehydration and/or rhabdomyolysis. Renal ultrasound showing no acute issues. Protein to creatinine ratio is 2.7 g. 03/28 creatinine 4.1, low of 2.5 on 04/01 04/02 3.1 (near baseline) (5) Rhabdomyolysis: Code(s): M62.82 - Rhabdomyolysis Status: Acute Assessment and Plan: Total creatinine kinase climbed to 2620. With IV fluids, levels have dropped to 545. Fluids d/c'ed. (6) Anemia: Code(s): D64.9 - Anemia, unspecified Status: Acute Assessment and Plan: CKD and chronic GI blood loss F/u lab (7) Hypertension: Code(s): I10 - Essential (primary) hypertension Status: Chronic Assessment and Plan: Patient's blood pressure was reviewed on 04/01 Blood pressure better controlled (SBP 130-150). Meds per PEG (8) Leukocytosis: Code(s): D72.829 - Elevated white blood cell count, unspecified Status: Acute Assessment and Plan: Likely demargination. Continue to monitor (9) Insulin dependent diabetes mellitus: Status: Chronic Assessment and Plan: A1c 8.1. The patient's blood glucose was reviewed on 04/02 Continue basal and SSI (10) Moyamoya disease: Code(s): I67.5 - Moyamoya disease Status: Chronic Assessment and Plan: No other family members are noted to have this disease. She was diagnosed approximately a year and a half ago. Px poor. (11) DVT prophylaxis: Code(s): Z29.9 - Encounter for prophylactic measures, unspecified Status: Acute Assessment and Plan: SCD due to DU (12) Bleeding chronic duodenal ulcer: Code(s): K26.4 - Chronic or unspecified duodenal ulcer with hemorrhage Status: Acute Assessment and Plan: 04/01 EGD.
[2021-04-02 11:32] LABS: Glucose Point of Care 152 mg/dl (65-105)
[2021-04-02 17:06] LABS: Glucose Point of Care 148 mg/dl (65-105)
--- NOTE | 2021-04-02 19:23 | PC.NURSE ---
Attempted to notify Dr. Wolff of urine culture results. Will pass along to shift superintendent caustic cresylate to await callback or notify appropriate provider.
[2021-04-02] MEDS: ATORVASTATIN 40 MG TABLET 80 MG FEED TUBE (20:52)
[2021-04-02] MEDS: INSULIN GLARGINE (*BKC) 100 UNITS/ML 10 UNITS SUB-Q (20:53)
[2021-04-02] MEDS: BACLOFEN 10 MG TABLET FEED TUBE (20:53)
[2021-04-02] MEDS: MELATONIN 5 MG TABLET FEED TUBE (20:53)
[2021-04-02] MEDS: MICONAZOLE NITRATE 2% VAGINAL CREAM 45 GM TUBE 1 APPFUL VAGINAL (20:53)
[2021-04-02 21:12] LABS: Glucose Point of Care 189 mg/dl (65-105)
[2021-04-03] VITALS (11 sets, daily range): BP systolic 146–168; BP diastolic 88–96; PULSE 95–134; RESP 18–36; TEMP 35.8–39.2; O2SAT 91–94
[2021-04-03 00:13] LABS: Glucose Point of Care 181 mg/dl (65-105)
[2021-04-03] MEDS: METOPROLOL TARTRATE INJ 5 MG/5 ML VIAL IV PUSH ×5 (00:53→23:12)
[2021-04-03] MEDS: levETIRAcetam 500MG/NACL 100ML 500 MG/100 ML BAG 400 MG IVPB (05:21)
[2021-04-03 05:26] LABS: Glucose Point of Care 207 mg/dl (65-105)
[2021-04-03] MEDS: INSULIN ASPART (*BKC) 100 UNITS/ML SUB-Q ×3 (05:32→23:13)
[2021-04-03 05:33] LABS: Hematocrit 28.2 % (37.0-47.0); Mean Corpuscular HGB Conc 31.9 g/dl (32-36); Mean Corpuscular Hemoglobin 29.3 pg (26-34); Mean Corpuscular Volume 91.9 fl (80-100); Mean Platelet Volume 11.3 fl (7.4-10.4); Platelet Count Result 391 k/mm3 (150-375); Red Blood Count 3.07 M/mm3 (4.2-5.4); Red Cell Distribution Width 13.7 % (11.5-14.5); White Blood Count 14.1 K/mm3 (4.5-10.0)
[2021-04-03 05:47] LABS: Anion Gap 6 mmol/L (8-16); Blood Urea Nitrogen 41 mg/dL (7-17); Calcium 9.1 mg/dL (8.4-10.2); Carbon Dioxide 30 mmol/L (22-30); Chloride 113 mmol/L (98-107); Estimated CRCL calculation 27 ml/min; Estimated Glomerular Filt Rate 19; Glucose 218 mg/dL (65-105); Potassium 3.4 mmol/L (3.4-5.0); Sodium 149 mmol/L (137-145)
[2021-04-03 06:03] LABS: Iron 50 ug/dL (37-170)
[2021-04-03 06:12] LABS: Percent Iron Saturation 40 % (20-50)
[2021-04-03] MEDS: AMOXICILLIN 250 MG/5 ML SUSPENSION 1000 MG FEED TUBE ×2 (08:48→20:34)
[2021-04-03] MEDS: ACETAMINOPHEN ELIXIR 325 MG/10.15 ML UDC 650 MG FEED TUBE ×3 (08:48→22:13)
[2021-04-03] MEDS: polyethylene glycoL 3350 17 GM POWD.PACK FEED TUBE (08:49)
[2021-04-03] MEDS: metroNIDAZOLE 250 MG TABLET 500 MG FEED TUBE ×2 (08:49→20:35)
[2021-04-03] MEDS: amLODIPine BESYLATE 5 MG TABLET 10 MG FEED TUBE (08:49)
[2021-04-03] MEDS: BACLOFEN 5 MG TABLET FEED TUBE ×2 (08:49→16:14)
[2021-04-03] MEDS: CITALOPRAM HYDROBROMIDE 20 MG TABLET FEED TUBE (08:49)
[2021-04-03] MEDS: HEPARIN SODIUM 5,000 UNITS/ML VIAL 5000 UNITS SUB-Q ×2 (08:49→20:33)
[2021-04-03] MEDS: LANSOPRAZOLE ORAL SUSP 30 MG/10 ML ORAL.SUSP FEED TUBE ×2 (08:49→16:15)
--- NOTE | 2021-04-03 11:17 | P.PNNP_ITS ---
Progress Note: A&P Assessment and Plan (1) JUVENTINO (acute kidney injury): Code(s): N17.9 - Acute kidney failure, unspecified Status: Acute Assessment and Plan: * suspect she has an element of JUVENTINO/ARF * evaluation to date: - renal ultrasound without obstruction - urinalysis has blood, protein, and sugar - urine electrolytes are pre renal -no eosinophilia * renal scan with adequate blood flow, uptake without excretion: possible ATN * Creatinine is up a bit more today. Sodium is high as well. I think she is a bit behind in fluids. * Will change Nepro to Glucerna. This will give her more free water and improve her Sodium level. * The patient will also get half normal saline to improve the creatinine a little bit.. (2) Chronic kidney disease: Code(s): N18.9 - Chronic kidney disease, unspecified Status: Chronic Assessment and Plan: * unclear what her baseline creatinine is * however, [facility] records list chronic kidney disease stage IIIB as a problem/diagnosis * proteinuria suggests a component of diabetes, hypertension, and vascular disease affecting the kidneys * follow trend of labs (3) Hypertension: Code(s): I10 - Essential (primary) hypertension Status: Chronic Assessment and Plan: * Systolic is in the 150s. * With acute kidney injury, leave blood pressure mildly elevated. * She is on metoprolol and amlodipine. 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 Subjective Date/time seen: 04/03/21 11:17 Interval history: The patient is comfortable today. does not interact. Father is in the room and we discussed the case. Exam Narrative: Exam Narrative: General: WD/WN female in NAD; unresponsive Heart: normal S1 and S2; tachycardic Lungs: clear Bilaterally Abdomen: soft, nontender, nondistended, positive bowel sounds Extremities: no cyanosis or clubbing; no edema Skin: no rash or subcu nodules Objective Data Vital Signs Vital Signs: Vital Signs - 24 hr 04/02/21 11:44 04/02/21 12:30 04/02/21 14:00 Temperature 36.6 C Pulse Rate 116 H 112 H Respiratory Rate 38 H Blood Pressure 153/93 H 176/86 H Pulse Oximetry 93 04/02/21 17:03 04/02/21 20:04 04/03/21 00:53 Temperature 36.9 C Pulse Rate 106 H 117 H 134 H Respiratory Rate 22 H Blood Pressure 167/91 H Pulse Oximetry 90 04/03/21 05:31 04/03/21 05:49 Temperature 35.8 C L Pulse Rate 117 H 112 H Respiratory Rate 18 Blood Pressure 168/88 H Pulse Oximetry 93 Intake/Output Intake/Output: Intake & Output 03/31/21 04/01/21 04/02/21 04/03/21
--- NOTE | 2021-04-03 11:17 | PM.PNNEP ---
Progress Note: A&P Assessment and Plan (1) JUVENTINO (acute kidney injury): Code(s): N17.9 - Acute kidney failure, unspecified Status: Acute Assessment and Plan: suspect she has an element of JUVENTINO/ARF evaluation to date: - renal ultrasound without obstruction - urinalysis has blood, protein, and sugar - urine electrolytes are pre renal -no eosinophilia renal scan with adequate blood flow, uptake without excretion: possible ATN Creatinine is up a bit more today. Sodium is high as well. I think she is a bit behind in fluids. Will change Nepro to Glucerna. This will give her more free water and improve her Sodium level. The patient will also get half normal saline to improve the creatinine a little bit.. (2) Chronic kidney disease: Code(s): N18.9 - Chronic kidney disease, unspecified Status: Chronic Assessment and Plan: unclear what her baseline creatinine is however, [facility] list chronic kidney disease stage IIIB as a problem/diagnosis proteinuria suggests a component of diabetes, hypertension, and vascular disease affecting the kidneys follow trend of labs (3) Hypertension: Code(s): I10 - Essential (primary) hypertension Status: Chronic Assessment and Plan: Systolic is in the 150s. With acute kidney injury, leave blood pressure mildly elevated. She is on metoprolol and amlodipine. 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 Subjective Date/time seen: 04/03/21 11:17 Interval history: The patient is comfortable today. does not interact. Father is in the room and we discussed the case. Exam Narrative: Exam Narrative: General: WD/WN female in NAD; unresponsive Heart: normal S1 and S2; tachycardic Lungs: clear Bilaterally Abdomen: soft, nontender, nondistended, positive bowel sounds Extremities: no cyanosis or clubbing; no edema Skin: no rash or subcu nodules Objective Data Vital Signs Vital Signs: Vital Signs - 24 hr 04/02/21 11:44 04/02/21 12:30 04/02/21 14:00 Temperature 36.6 C Pulse Rate 116 H 112 H Respiratory Rate 38 H Blood Pressure 153/93 H 176/86 H Pulse Oximetry 93 04/02/21 17:03 04/02/21 20:04 04/03/21 00:53 Temperature 36.9 C Pulse Rate 106 H 117 H 134 H Respiratory Rate 22 H Blood Pressure 167/91 H Pulse Oximetry 90 04/03/21 05:31 04/03/21 05:49 Temperature 35.8 C L Pulse Rate 117 H 112 H Respiratory Rate 18 Blood Pressure 168/88 H Pulse Oximetry 93 Intake/Output Intake/Output: Intake & Output 03/31/21 04/01/21 04/02/21 04/03/21 23:59 23:59 23:59 23:59 Intake Total 2907.0 1549.0 1461.0 880.5 Output Total 450 1050 1350 550 Balance 2457.0 499.0 111.0 330.5 Meds/Results Medications: Active Medications Generic Name Dose Route Start Last Admin Trade Name Freq PRN Reason Stop Dose Admin Acetaminophen 650 mg 03/31/21 13:14 04/03/21 08:48 Acetaminophen Elixir 325 Mg/10.15 Ml Udc FEED TUBE 650 mg Q6H PRN Administration Pain Amlodipine Besylate 10 mg 03/31/21 13:20 04/03/21 08:49 Amlodipine Besylate 5 Mg Tablet FEED TUBE 10 mg DAILY RYLIE Administration Amoxicillin 1,000 mg 04/01/21 21:00 04/03/21 08:48 Amoxicillin 250 Mg/5 Ml Suspension FEED TUBE 1,000 mg Q12HR RYLIE Administration Atorvastatin Calcium 80 mg
[2021-04-03 11:32] LABS: Glucose Point of Care 178 mg/dl (65-105)
--- NOTE | 2021-04-03 12:40 | PM.IMPN ---
Progress Note: A&P Assessment and Plan (1) Seizure disorder as sequela of cerebrovascular accident: Code(s): I69.398 - Other sequelae of cerebral infarction; G40.909 - Epilepsy, unspecified, not intractable, without status epilepticus Status: Acute Assessment and Plan: Patient was having intermittent seizures clinically. EEG showing abnormal record to the presence of bihemispheric delta activity but no spikes. VPA IV 750mg Q12h Keppra IV continued. PEG placed 04/01 Likely return to NH soon. Px very poor. (2) Acute CVA (cerebrovascular accident): Code(s): I63.9 - Cerebral infarction, unspecified Status: Acute Assessment and Plan: Patient presents with altered mental status. CT of the brain showing bilateral strokes right greater than left but no acute findings. She ultimately had an MRI of the brain on March 27 which showed multiple small infarcts left frontal and basal ganglia area. She is NPO currently. Aspirin and statin, but ASA on hold 04/01 due to DU. Echocardiogram was essentially normal. Carotid ultrasound was incomplete. Mental status improving but still not talkative as decscribed at baseline. (3) Altered mental status: Qualifiers: Altered mental status type: unspecified Qualified Code(s): R41.82 - Altered mental status, unspecified Code(s): R41.82 - Altered mental status, unspecified Status: Acute Assessment and Plan: B12/Folate/TSH normal. MRI showing acute CVA. LP on 03/27/21 showed 31 red cells and 3 nucleated cells majority of which were lymphocytes. Glucose was 72 and protein was 83. CSF VDRL and HSV negative. Other studies are still pending. All cultures remain negative. [place] the AMS related to acute CVA. Will check Ammonia level. Minimize mediciations that may affect mental status. Baclofen advanced due to spasticity. (4) Acute kidney injury superimposed on chronic kidney disease: Code(s): N17.9 - Acute kidney failure, unspecified; N18.9 - Chronic kidney disease, unspecified Status: Acute Assessment and Plan: Baseline creatinine is around 3.0 per chart review. Creatinine 4.1 on admission felt related to dehydration and/or rhabdomyolysis. Renal ultrasound showing no acute issues. Protein to creatinine ratio is 2.7 g. 03/28 creatinine 4.1, low of 2.5 on 04/01 04/02 3.1 (near baseline) 04/03 3.5, IVF added and TF changed F/u lab (5) Rhabdomyolysis: Qualifiers: Rhabdomyolysis type: non-traumatic Qualified Code(s): M62.82 - Rhabdomyolysis Code(s): M62.82 - Rhabdomyolysis Status: Acute Assessment and Plan: Total creatinine kinase climbed to 2620. With IV fluids, levels have dropped to 545. Fluids d/c'ed. (6) Anemia: Qualifiers: Anemia type: due to chronic kidney disease Chronic kidney disease stage: stage 4 (severe) Qualified Code(s): N18.4 - Chronic kidney disease, stage 4 (severe); D63.1 - Anemia in chronic kidney disease Code(s): D64.9 - Anemia, unspecified Status: Acute Assessment and Plan: CKD and chronic GI blood loss F/u lab (7) Hypertension: Qualifiers: Hypertension type: unspecified Qualified Code(s): I10 - Essential (primary) hypertension Code(s): I10 - Essential (primary) hypertension Status: Chronic Assessment and Plan: Patient's blood pressure was reviewed on 04/01 Blood pressure better controlled (SBP 130-150). Meds per PEG (8) Leukocytosis: Qualifiers: Leukocytosis type: unspecified Qualified Code(s): D72.829 - Elevated white blood cell count, unspecified Code(s): D72.829 - Elevated white blood cell count, unspecified Status: Acute Assessment and Plan: Likely demargination. Improving Continue to monitor (9) Insulin dependent diabetes mellitus: Status: Chronic Assessment and Plan: A1c 8.1. The patient's blood glucos
[2021-04-03] MEDS: DEXTROSE 5%/0.45% SOD CHL 1,000 ML 75 ML IV CONT (12:46)
[2021-04-03] MEDS: hydrALAZINE HCL 20 MG/ML VIAL 10 MG IV PUSH (15:17)
[2021-04-03] MEDS: BISACODYL 10 MG SUPPOSITORY RECTAL (17:40)
[2021-04-03] MEDS: levETIRAcetam ORAL SOL 500 MG/5 ML UDC FEED TUBE (17:41)
[2021-04-03 17:56] LABS: Glucose Point of Care 240 mg/dl (65-105)
[2021-04-03] MEDS: VALPROIC ACID LIQ 250 MG/5 ML ORAL SOLUTION UDC 750 MG FEED TUBE (20:33)
[2021-04-03] MEDS: INSULIN GLARGINE (*BKC) 100 UNITS/ML 10 UNITS SUB-Q (20:35)
[2021-04-03] MEDS: MELATONIN 5 MG TABLET FEED TUBE (20:35)
[2021-04-03] MEDS: ATORVASTATIN 40 MG TABLET 80 MG FEED TUBE (20:35)
[2021-04-03] MEDS: BACLOFEN 10 MG TABLET FEED TUBE (20:35)
[2021-04-03] MEDS: MICONAZOLE NITRATE 2% VAGINAL CREAM 45 GM TUBE 1 APPFUL VAGINAL (20:39)
[2021-04-03 20:40] LABS: Glucose Point of Care 200 mg/dl (65-105)
[2021-04-03 23:08] LABS: Glucose Point of Care 235 mg/dl (65-105)
[2021-04-04] VITALS (8 sets, daily range): BP systolic 124–176; BP diastolic 67–99; PULSE 87–110; RESP 16–24; TEMP 36–36.7; O2SAT 95–100
[2021-04-04] MEDS: DEXTROSE 5%/0.45% SOD CHL 1,000 ML 75 ML IV CONT (02:30)
[2021-04-04] MEDS: METOPROLOL TARTRATE INJ 5 MG/5 ML VIAL IV PUSH ×4 (05:42→23:43)
[2021-04-04] MEDS: levETIRAcetam ORAL SOL 500 MG/5 ML UDC FEED TUBE ×2 (05:42→17:43)
[2021-04-04] MEDS: INSULIN ASPART (*BKC) 100 UNITS/ML SUB-Q ×4 (05:43→23:47)
[2021-04-04 05:54] LABS: Glucose Point of Care 271 mg/dl (65-105)
[2021-04-04 06:12] LABS: Hemoglobin 9.6 g/dL (12.0-15.0); Mean Corpuscular Hemoglobin 29.3 pg (26-34); Mean Corpuscular Volume 91.5 fl (80-100); Mean Platelet Volume 11.4 fl (7.4-10.4); Platelet Count Result 419 k/mm3 (150-375); Red Blood Count 3.28 M/mm3 (4.2-5.4); Red Cell Distribution Width 13.7 % (11.5-14.5); White Blood Count 15.8 K/mm3 (4.5-10.0)
[2021-04-04 06:26] LABS: Alanine Aminotransferase 42 U/L (4-35); Albumin Level 2.7 g/dL (3.5-5.1); Alkaline Phosphatase 89 U/L (38-126); Anion Gap 9 mmol/L (8-16); Aspartate Amino Transferase 71 U/L (14-36); Bilirubin,Total 0.4 mg/dL (0.2-1.3); Blood Urea Nitrogen 53 mg/dL (7-17); Calcium 8.4 mg/dL (8.4-10.2); Carbon Dioxide 25 mmol/L (22-30); Chloride 112 mmol/L (98-107); Estimated CRCL calculation 25 ml/min; Estimated Glomerular Filt Rate 18; Glucose 313 mg/dL (65-105); Phosphorus 3.2 mg/dL (2.5-4.5); Potassium 3.7 mmol/L (3.4-5.0); Sodium 146 mmol/L (137-145)
[2021-04-04 07:28] LABS: Valproic Acid 46.3 ug/mL (50-120)
[2021-04-04] MEDS: amLODIPine BESYLATE 5 MG TABLET 10 MG FEED TUBE (09:05)
[2021-04-04] MEDS: metroNIDAZOLE 250 MG TABLET 500 MG FEED TUBE ×2 (09:06→21:05)
[2021-04-04] MEDS: polyethylene glycoL 3350 17 GM POWD.PACK FEED TUBE (09:06)
[2021-04-04] MEDS: HEPARIN SODIUM 5,000 UNITS/ML VIAL 5000 UNITS SUB-Q ×2 (09:06→21:18)
[2021-04-04] MEDS: CITALOPRAM HYDROBROMIDE 20 MG TABLET FEED TUBE (09:06)
[2021-04-04] MEDS: BACLOFEN 5 MG TABLET FEED TUBE ×3 (09:06→21:05)
[2021-04-04] MEDS: LANSOPRAZOLE ORAL SUSP 30 MG/10 ML ORAL.SUSP FEED TUBE ×2 (09:09→17:43)
[2021-04-04] MEDS: AMOXICILLIN 250 MG/5 ML SUSPENSION 1000 MG FEED TUBE ×2 (09:09→21:06)
[2021-04-04] MEDS: VALPROIC ACID LIQ 250 MG/5 ML ORAL SOLUTION UDC 750 MG FEED TUBE ×2 (09:34→21:07)
--- NOTE | 2021-04-04 10:12 | P.CONNP_ITS ---
Assessment and Plan Assessment and plan (1) JUVENTINO (acute kidney injury): Code(s): N17.9 - Acute kidney failure, unspecified Status: Acute Assessment and Plan: * suspect she has an element of JUVENTINO/ARF * evaluation to date: - renal ultrasound without obstruction - urinalysis has blood, protein, and sugar - urine electrolytes are pre renal -no eosinophilia * renal scan with adequate blood flow, uptake without excretion: possible ATN * Creatinine is slightly higher today. Rate of rise of creatinine is lower. * Sodium level is better. * She is now on full-strength tube feedings plus tube feeding flushes. I think we can stop the IV fluids. * The rise in creatinine we can cut back on the Baclofen a little bit. (2) Chronic kidney disease: Code(s): N18.9 - Chronic kidney disease, unspecified Status: Chronic Assessment and Plan: * unclear what her baseline creatinine is * however, [facility] list chronic kidney disease stage IIIB as a problem/diagnosis * proteinuria suggests a component of diabetes, hypertension, and vascular disease affecting the kidneys * follow trend of labs (3) Hypertension: Qualifiers: Hypertension type: unspecified Qualified Code(s): I10 - Essential (primary) hypertension Code(s): I10 - Essential (primary) hypertension Status: Chronic Assessment and Plan: * Systolic is in the 150s. * With acute kidney injury, leave blood pressure mildly elevated for now. * She is on metoprolol and amlodipine. * follow hemodynamics (4) History of CVA (cerebrovascular accident): Code(s): Z86.73 - Personal history of transient ischemic attack (TIA), and cerebral infa rction without residual deficits Status: Inactive Assessment and Plan: * imaging with several strokes * left sided weakness noted (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 History of Present Illness Reason for Consult Consult date: 04/04/21 Chief Complaint Chief complaint: ALTERED MENTAL STATUS History of Present Illness Narrative: Unable to give a history. Resting comfortably in bed. Review of Systems Review of Systems: ROS unobtainable: Yes unobtainable due to mental status PMFSH Past Medical History Medical History Chronic kidney disease Depression Finger amputation, no complication History of CVA (cerebrovascular accident) Hypertension Insulin dependent diabetes mellitus Last hemoglobin A1c 8.1 Moyamoya disease Family History Family History Mother Diabetes mellitus ESRD (end stage renal disease) Social History Social History Social History: The patient lives at [facility]. Silvia zapata is listed as her advance directive healthcare proxy. The patient is [address] as a full code. She is disabled. She is single never . No children. Smoking status is unknown. Smoking status: Never smoker Spiritual care concerns: No Meds Home Medications and Allergies
--- NOTE | 2021-04-04 10:12 | PM.CNNEP ---
Assessment and Plan Assessment and plan (1) JUVENTINO (acute kidney injury): Code(s): N17.9 - Acute kidney failure, unspecified Status: Acute Assessment and Plan: suspect she has an element of JUVENTINO/ARF evaluation to date: - renal ultrasound without obstruction - urinalysis has blood, protein, and sugar - urine electrolytes are pre renal -no eosinophilia renal scan with adequate blood flow, uptake without excretion: possible ATN Creatinine is slightly higher today. Rate of rise of creatinine is lower. Sodium level is better. She is now on full-strength tube feedings plus tube feeding flushes. I think we can stop the IV fluids. The rise in creatinine we can cut back on the Baclofen a little bit. (2) Chronic kidney disease: Code(s): N18.9 - Chronic kidney disease, unspecified Status: Chronic Assessment and Plan: unclear what her baseline creatinine is however, [place] [facility] list chronic kidney disease stage IIIB as a problem/diagnosis proteinuria suggests a component of diabetes, hypertension, and vascular disease affecting the kidneys follow trend of labs (3) Hypertension: Qualifiers: Hypertension type: unspecified Qualified Code(s): I10 - Essential (primary) hypertension Code(s): I10 - Essential (primary) hypertension Status: Chronic Assessment and Plan: Systolic is in the 150s. With acute kidney injury, leave blood pressure mildly elevated for now. She is on metoprolol and amlodipine. 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 History of Present Illness Reason for Consult Consult date: 04/04/21 Chief Complaint Chief complaint: ALTERED MENTAL STATUS History of Present Illness Narrative: Unable to give a history. Resting comfortably in bed. Review of Systems Review of Systems: ROS unobtainable: Yes unobtainable due to mental status PMFSH Past Medical History Medical History Chronic kidney disease Depression Finger amputation, no complication History of CVA (cerebrovascular accident) Hypertension Insulin dependent diabetes mellitus Last hemoglobin A1c 8.1 Moyamoya disease Family History Family History Mother Diabetes mellitus ESRD (end stage renal disease) Social History Social History Social History: The patient lives at [facility] a [place] [facility]. Silvia zapata is listed as her advance directive healthcare proxy. The patient is listed as a full code. She is disabled. She is single never . No children. Smoking status is unknown. Smoking status: Never smoker Spiritual care concerns: No Meds Home Medications and Allergies Home Medications Medication Instructions Recorded Confirmed Type Adult Low Dose Aspirin 81 mg PO DAILY 03/25/21 03/25/21 History Blue-Emu Lidocaine Patch 1 patch DAILY 03/25/21 03/25/21 History Humalog U-100 Insulin 5 units SUBCUT TIDWM 03/25/21 03/25/21 History Lantus Solostar U-100 Insulin 10 units SUBCUT HS 03/25/21 03/25/21 History Miralax 17 g PO DAILY 03/25/21 03/25/21 History Stratton 5 - 325 mg PO Q12-24H PRN 03/25/21 03/25/21 History Senna Plus (senna-docusate) 8.6 - 50 mg PO BID 03/25/21 03/25/21 History
[2021-04-04 12:12] LABS: Glucose Point of Care 263 mg/dl (65-105)
[2021-04-04] MEDS: LORazepam INJ (*CRX) 2 MG/ML VIAL 1 MG IV PUSH (15:01)
--- NOTE | 2021-04-04 15:01 | PM.IMPN ---
Progress Note: A&P Assessment and Plan (1) Seizure disorder as sequela of cerebrovascular accident: Code(s): I69.398 - Other sequelae of cerebral infarction; G40.909 - Epilepsy, unspecified, not intractable, without status epilepticus Status: Acute Assessment and Plan: Patient was having intermittent seizures clinically. EEG showing abnormal record to the presence of bihemispheric delta activity but no spikes. VPA IV 750mg Q12h Keppra IV continued. PEG placed 04/01 Likely return to NH soon. Px very poor. 04/04/21 15:01 Patient is nonverbal here with CVA and seizure patient is moaning with pain, unable to provide any review of symptom will continue present management avoid excess sedation, patient is seen by Neurology and further recommendation to follow (2) Acute CVA (cerebrovascular accident): Code(s): I63.9 - Cerebral infarction, unspecified Status: Acute Assessment and Plan: Patient presents with altered mental status. CT of the brain showing bilateral strokes right greater than left but no acute findings. She ultimately had an MRI of the brain on March 27 which showed multiple small infarcts left frontal and basal ganglia area. She is NPO currently. Aspirin and statin, but ASA on hold 04/01 due to DU. Echocardiogram was essentially normal. Carotid ultrasound was incomplete. Mental status improving but still not talkative as decscribed at baseline. (3) Altered mental status: Qualifiers: Altered mental status type: unspecified Qualified Code(s): R41.82 - Altered mental status, unspecified Code(s): R41.82 - Altered mental status, unspecified Status: Acute Assessment and Plan: B12/Folate/TSH normal. MRI showing acute CVA. LP on 03/27/21 showed 31 red cells and 3 nucleated cells majority of which were lymphocytes. Glucose was 72 and protein was 83. CSF VDRL and HSV negative. Other studies are still pending. All cultures remain negative. [place] the AMS related to acute CVA. Will check Ammonia level. Minimize mediciations that may affect mental status. Baclofen advanced due to spasticity. (4) Acute kidney injury superimposed on chronic kidney disease: Code(s): N17.9 - Acute kidney failure, unspecified; N18.9 - Chronic kidney disease, unspecified Status: Acute Assessment and Plan: Baseline creatinine is around 3.0 per chart review. Creatinine 4.1 on admission felt related to dehydration and/or rhabdomyolysis. Renal ultrasound showing no acute issues. Protein to creatinine ratio is 2.7 g. 03/28 creatinine 4.1, low of 2.5 on 04/01 04/02 3.1 (near baseline) 04/03 3.5, IVF added and TF changed F/u lab (5) Rhabdomyolysis: Qualifiers: Rhabdomyolysis type: non-traumatic Qualified Code(s): M62.82 - Rhabdomyolysis Code(s): M62.82 - Rhabdomyolysis Status: Acute Assessment and Plan: Total creatinine kinase climbed to 2620. With IV fluids, levels have dropped to 545. Fluids d/c'ed. (6) Anemia: Qualifiers: Anemia type: due to chronic kidney disease Chronic kidney disease stage: stage 4 (severe) Qualified Code(s): N18.4 - Chronic kidney disease, stage 4 (severe); D63.1 - Anemia in chronic kidney disease Code(s): D64.9 - Anemia, unspecified Status: Acute Assessment and Plan: CKD and chronic GI blood loss F/u lab (7) Hypertension: Qualifiers: Hypertension type: unspecified Qualified Code(s): I10 - Essential (primary) hypertension Code(s): I10 - Essential (primary) hypertension Status: Chronic Assessment and Plan: Patient's blood pressure was reviewed on 04/01 Blood pressure better controlled (SBP 130-150). Meds per PEG (8) Leukocytosis: Qualifiers: Leukocytosis type: unspecified Qualified Code(s): D72.829 - Elevated white blood cell count, unspecified Code(s): D72.829 - Elevated white blood cell count,
[2021-04-04] MEDS: ACETAMINOPHEN ELIXIR 325 MG/10.15 ML UDC 650 MG FEED TUBE ×2 (15:02→21:19)
[2021-04-04 15:48] LABS: Creatinine Urine 121.8 mg/dL
[2021-04-04 15:51] LABS: Sodium Urine Random 29 meq/L
[2021-04-04 16:06] LABS: Eosinophil Urine None Seen % (None Seen)
[2021-04-04 16:17] LABS: Total Protein Urine Random > 600 mg/dL
[2021-04-04 17:05] LABS: SARS-CoV-2 RNA PCR Negative
[2021-04-04 17:42] LABS: Glucose Point of Care 251 mg/dl (65-105)
[2021-04-04] MEDS: ATORVASTATIN 40 MG TABLET 80 MG FEED TUBE (21:05)
[2021-04-04] MEDS: MELATONIN 5 MG TABLET FEED TUBE (21:05)
[2021-04-04] MEDS: MICONAZOLE NITRATE 2% VAGINAL CREAM 45 GM TUBE 1 APPFUL VAGINAL (21:08)
[2021-04-04] MEDS: INSULIN GLARGINE (*BKC) 100 UNITS/ML 10 UNITS SUB-Q (21:25)
[2021-04-04 21:29] LABS: Glucose Point of Care 234 mg/dl (65-105)
[2021-04-04 23:54] LABS: Glucose Point of Care 230 mg/dl (65-105)
[2021-04-05 05:48] LABS: Hematocrit 32.1 % (37.0-47.0); Hemoglobin 9.8 g/dL (12.0-15.0); Mean Corpuscular HGB Conc 30.5 g/dl (32-36); Mean Corpuscular Hemoglobin 29.3 pg (26-34); Mean Corpuscular Volume 95.8 fl (80-100); Mean Platelet Volume 11.3 fl (7.4-10.4); Platelet Count Result 346 k/mm3 (150-375); Red Blood Count 3.35 M/mm3 (4.2-5.4); Red Cell Distribution Width 14.2 % (11.5-14.5)
[2021-04-05 05:56] VITALS: BP 148/90; PULSE 99; RESP 20; TEMP 36.5; O2SAT 100
[2021-04-05 05:59] VITALS: PULSE 100
[2021-04-05] MEDS: levETIRAcetam ORAL SOL 500 MG/5 ML UDC FEED TUBE ×2 (05:59→17:56)
[2021-04-05] MEDS: METOPROLOL TARTRATE INJ 5 MG/5 ML VIAL IV PUSH ×2 (05:59→11:35)
[2021-04-05] MEDS: ACETAMINOPHEN ELIXIR 325 MG/10.15 ML UDC 650 MG FEED TUBE ×2 (06:00→20:39)
[2021-04-05 06:01] LABS: Albumin Level 2.6 g/dL (3.5-5.1); Anion Gap 7 mmol/L (8-16); Blood Urea Nitrogen 60 mg/dL (7-17); Calcium 7.9 mg/dL (8.4-10.2); Carbon Dioxide 27 mmol/L (22-30); Chloride 113 mmol/L (98-107); Estimated CRCL calculation 27 ml/min; Estimated Glomerular Filt Rate 19; Glucose 293 mg/dL (65-105); Phosphorus 3.5 mg/dL (2.5-4.5); Potassium 3.6 mmol/L (3.4-5.0); Sodium 147 mmol/L (137-145)
[2021-04-05] MEDS: INSULIN ASPART (*BKC) 100 UNITS/ML SUB-Q ×2 (06:17→11:33)
[2021-04-05 06:20] LABS: Glucose Point of Care 275 mg/dl (65-105)
--- NOTE | 2021-04-05 06:59 | P.PNNP_ITS ---
Progress Note: A&P Assessment and Plan (1) JUVENTINO (acute kidney injury): Code(s): N17.9 - Acute kidney failure, unspecified Status: Acute Assessment and Plan: * suspect she has an element of JUVENTINO/ARF * evaluation to date: - renal ultrasound without obstruction - urinalysis has blood, protein, and sugar - urine electrolytes are pre renal -no eosinophilia * renal scan with adequate blood flow, uptake without excretion: possible ATN * Creatinine is about the same. * Sodium level is Stable but still high. * She is now on full-strength tube feedings plus tube feeding flushes. * Urine electrolytes show pre renal azotemia. She still has a lot of protein in the urine , and she also might be a behind in fluids leading to the pre renal picture. * Will give some IV fluids * Consider holding the Baclofen? (2) Chronic kidney disease: Code(s): N18.9 - Chronic kidney disease, unspecified Status: Chronic Assessment and Plan: * unclear what her baseline creatinine is * however, [place] [facility] list chronic kidney disease stage IIIB as a problem/diagnosis * proteinuria suggests a component of diabetes, hypertension, and vascular disease affecting the kidneys * follow trend of labs (3) Hypertension: Qualifiers: Hypertension type: unspecified Qualified Code(s): I10 - Essential (primary) hypertension Code(s): I10 - Essential (primary) hypertension Status: Chronic Assessment and Plan: * Systolic is in the 140s * With acute kidney injury, leave blood pressure mildly elevated for now. * She is on metoprolol and amlodipine. 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 Subjective Date/time seen: 04/05/21 06:59 Interval history: The patient is comfortable lying in bed. No shortness of breath. No swelling. Exam Narrative: Exam Narrative: General: WD/WN female in NAD; unresponsive Heart: normal S1 and S2; No rub or gallop Lungs: clear Abdomen: soft, nontender, nondistended, positive bowel sounds Extremities: no edema Skin: no rash or subcu nodules Objective Data Vital Signs Vital Signs: Vital Signs - 24 hr 04/04/21 12:59 04/04/21 14:00 04/04/21 17:42 Temperature 36.5 C Pulse Rate 97 87 87 Respiratory Rate 20 Blood Pressure 124/67 Pulse Oximetry 100 04/04/21 20:16 04/04/21 23:43 04/05/21 05:56 Temperature 36.0 C L 36.5 C Pulse Rate 91 110 H 99 Respiratory Rate 16 20 Blood Pressure 149/88 H 148/90 H Pulse Oximetry 99 100 04/05/21 05:59 Temperature Pulse Rate 100 Respiratory Rate Blood Pressure Pulse Oximetry
--- NOTE | 2021-04-05 06:59 | PM.PNNEP ---
Progress Note: A&P Assessment and Plan (1) JUVENTINO (acute kidney injury): Code(s): N17.9 - Acute kidney failure, unspecified Status: Acute Assessment and Plan: suspect she has an element of JUVENTINO/ARF evaluation to date: - renal ultrasound without obstruction - urinalysis has blood, protein, and sugar - urine electrolytes are pre renal -no eosinophilia renal scan with adequate blood flow, uptake without excretion: possible ATN Creatinine is about the same. Sodium level is Stable but still high. She is now on full-strength tube feedings plus tube feeding flushes. Urine electrolytes show pre renal azotemia. She still has a lot of protein in the urine , and she also might be a behind in fluids leading to the pre renal picture. Will give some IV fluids Consider holding the Baclofen? (2) Chronic kidney disease: Code(s): N18.9 - Chronic kidney disease, unspecified Status: Chronic Assessment and Plan: unclear what her baseline creatinine is however, [facility] list chronic kidney disease stage IIIB as a problem/diagnosis proteinuria suggests a component of diabetes, hypertension, and vascular disease affecting the kidneys follow trend of labs (3) Hypertension: Qualifiers: Hypertension type: unspecified Qualified Code(s): I10 - Essential (primary) hypertension Code(s): I10 - Essential (primary) hypertension Status: Chronic Assessment and Plan: Systolic is in the 140s With acute kidney injury, leave blood pressure mildly elevated for now. She is on metoprolol and amlodipine. 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 Subjective Date/time seen: 04/05/21 06:59 Interval history: The patient is comfortable lying in bed. No shortness of breath. No swelling. Exam Narrative: Exam Narrative: General: WD/WN female in NAD; unresponsive Heart: normal S1 and S2; No rub or gallop Lungs: clear Abdomen: soft, nontender, nondistended, positive bowel sounds Extremities: no edema Skin: no rash or subcu nodules Objective Data Vital Signs Vital Signs: Vital Signs - 24 hr 04/04/21 12:59 04/04/21 14:00 04/04/21 17:42 Temperature 36.5 C Pulse Rate 97 87 87 Respiratory Rate 20 Blood Pressure 124/67 Pulse Oximetry 100 04/04/21 20:16 04/04/21 23:43 04/05/21 05:56 Temperature 36.0 C L 36.5 C Pulse Rate 91 110 H 99 Respiratory Rate 16 20 Blood Pressure 149/88 H 148/90 H Pulse Oximetry 99 100 04/05/21 05:59 Temperature Pulse Rate 100 Respiratory Rate Blood Pressure Pulse Oximetry Intake/Output Intake/Output: Intake & Output 04/02/21 04/03/21 04/04/21 04/05/21 23:59 23:59 23:59 23:59 Intake Total 1461.0 1687.0 3701 993 Output Total 1350 1125 1000 550 Balance 111.0 562.0 2701 443 Meds/Results Medications: Active Medications Generic Name Dose Route Start Last Admin Trade Name Freq PRN Reason Stop Dose Admin Acetaminophen 650 mg 03/31/21 13:14 04/05/21 06:00 Acetaminophen Elixir 325 Mg/10.15 Ml Udc FEED TUBE 650 mg Q6H PRN Administration Pain Amlodipine Besylate 10 mg 03/31/21 13:20 04/04/21 09:05 Amlodipine Besylate 5 Mg Tablet FEED TUBE 10 mg DAILY RYLIE Administration Amoxicillin 1,000 mg 04/01/21 21:00 04/04/21 21:06 Amoxicillin 250 Mg
[2021-04-05] MEDS: SODIUM CHLORIDE 0.45% 1,000 ML 75 ML IV CONT ×2 (07:36→20:54)
[2021-04-05] MEDS: AMOXICILLIN 250 MG/5 ML SUSPENSION 1000 MG FEED TUBE ×2 (08:03→20:37)
[2021-04-05] MEDS: VALPROIC ACID LIQ 250 MG/5 ML ORAL SOLUTION UDC 750 MG FEED TUBE ×2 (08:03→20:38)
[2021-04-05] MEDS: LANSOPRAZOLE ORAL SUSP 30 MG/10 ML ORAL.SUSP FEED TUBE ×2 (08:03→17:55)
[2021-04-05] MEDS: polyethylene glycoL 3350 17 GM POWD.PACK FEED TUBE (08:04)
[2021-04-05] MEDS: HEPARIN SODIUM 5,000 UNITS/ML VIAL 5000 UNITS SUB-Q ×2 (08:04→20:41)
[2021-04-05] MEDS: metroNIDAZOLE 250 MG TABLET 500 MG FEED TUBE ×2 (08:04→20:40)
[2021-04-05] MEDS: CITALOPRAM HYDROBROMIDE 20 MG TABLET FEED TUBE (08:04)
[2021-04-05] MEDS: amLODIPine BESYLATE 5 MG TABLET 10 MG FEED TUBE (08:04)
[2021-04-05] MEDS: BACLOFEN 5 MG TABLET FEED TUBE ×2 (08:04→20:40)
[2021-04-05 11:18] LABS: Glucose Point of Care 251 mg/dl (65-105)
[2021-04-05 11:35] VITALS: PULSE 100
--- NOTE | 2021-04-05 11:37 | PCNFU ---
Nutrition Follow-Up Complete: Inadequate Oral Intake as related to AMS as evidenced by NPO x 5 days Goal: Meet estimated nutritional needs Patient is progressing towards goal. We will continue current goal. Pt current nutrition is Glucerna 1.2 at 60 ml/hr Last recorded weight is 94.6 kg, 94.6 kg stable. Bowel Motility:+BM reported 04/04 Labs Reviewed:Glu 293,Cr 3.5,BUN 60,Na 147,Alb 2.6 Meds Noted:Miralax,Lopressor, NovoLog, Keppra,Lantus Additional Notes: Patient seen today for nutrition follow up. Tube feeding change made by nephrology to Glucerna 1.2. Goal rate adjusted today per MD orders to 60 ml/hr providing 1584 kcals and 79 gms protein. Current tube feeding is meeting caloric needs. Monitoring: Will monitor every Sunday and Sunday.
--- NOTE | 2021-04-05 13:23 | PM.IMPN ---
Progress Note: A&P Assessment and Plan (1) Seizure disorder as sequela of cerebrovascular accident: Code(s): I69.398 - Other sequelae of cerebral infarction; G40.909 - Epilepsy, unspecified, not intractable, without status epilepticus Status: Acute Assessment and Plan: Patient was having intermittent seizures clinically. EEG showing abnormal record to the presence of bihemispheric delta activity but no spikes. Currently on VPA and Keppra. PEG placed 04/01. Add scheduled Ativan (2) Acute CVA (cerebrovascular accident): Code(s): I63.9 - Cerebral infarction, unspecified Status: Acute Assessment and Plan: Patient presents with altered mental status. CT of the brain showing old bilateral strokes right greater than left but no acute findings. She ultimately had an MRI of the brain on March 27 which showed multiple small infarcts left frontal and basal ganglia area. She is NPO currently. Aspirin and statin, but ASA on hold 04/01 due to DU. Echocardiogram was essentially normal. Carotid ultrasound was incomplete. Mental status not improved much and suspect this is the patient's new baseline. Family made aware (3) Altered mental status: Qualifiers: Altered mental status type: unspecified Qualified Code(s): R41.82 - Altered mental status, unspecified Code(s): R41.82 - Altered mental status, unspecified Status: Acute Assessment and Plan: B12/Folate/TSH normal. MRI showing acute CVA. LP on 03/27/21 showed 31 red cells and 3 nucleated cells majority of which were lymphocytes. Glucose was 72 and protein was 83. CSF VDRL and HSV negative. Other studies are still pending. All cultures remain negative. [place] the AMS related to acute CVA. Minimize medications that may affect mental status. (4) Acute kidney injury superimposed on chronic kidney disease: Code(s): N17.9 - Acute kidney failure, unspecified; N18.9 - Chronic kidney disease, unspecified Status: Acute Assessment and Plan: Baseline creatinine is around 3.0 per chart review. Creatinine 4.1 on admission felt related to dehydration and/or rhabdomyolysis. Renal ultrasound showing no acute issues. Protein to creatinine ratio is 2.7 g. Cr low as 2.5 on 04/01 but up to 3.7 yesterday. IV fluids started and free water advanced. Appreciate nephrology input. Decrease Baclofen. (5) Rhabdomyolysis: Qualifiers: Rhabdomyolysis type: non-traumatic Qualified Code(s): M62.82 - Rhabdomyolysis Code(s): M62.82 - Rhabdomyolysis Status: Acute Assessment and Plan: Total creatinine kinase climbed to 2620. With IV fluids, levels have dropped to 545. Fluids resumed due to JUVENTINO. (6) Anemia: Qualifiers: Anemia type: due to chronic kidney disease Chronic kidney disease stage: stage 4 (severe) Qualified Code(s): N18.4 - Chronic kidney disease, stage 4 (severe); D63.1 - Anemia in chronic kidney disease Code(s): D64.9 - Anemia, unspecified Status: Acute Assessment and Plan: Related to CKD and chronic GI blood loss. Hgb stable in the 9 range. (7) Hypertension: Qualifiers: Hypertension type: unspecified Qualified Code(s): I10 - Essential (primary) hypertension Code(s): I10 - Essential (primary) hypertension Status: Chronic Assessment and Plan: Patient's blood pressure was reviewed on 04/05 Blood pressure better controlled (SBP 120-140). Change to metoprolol per PEG. (8) Leukocytosis: Qualifiers: Leukocytosis type: unspecified Qualified Code(s): D72.829 - Elevated white blood cell count, unspecified Code(s): D72.829 - Elevated white blood cell count, unspecified Status: Acute Assessment and Plan: Likely demargination. Improving. Continue to monitor (9) Insulin dependent diabetes mellitus: Status: Chronic Assessment and Plan: A1c 8.1. The patient's bloo
[2021-04-05 14:00] VITALS: BP 127/72; PULSE 99; RESP 16; TEMP 36.3; O2SAT 98
[2021-04-05] MEDS: LORazepam (*CRX) 0.5 MG TABLET FEED TUBE ×2 (17:56→23:39)
[2021-04-05 18:04] LABS: Glucose Point of Care 150 mg/dl (65-105)
[2021-04-05 20:25] VITALS: BP 119/79; PULSE 118; RESP 18; TEMP 36.8; O2SAT 100
[2021-04-05 20:40] VITALS: PULSE 118
[2021-04-05] MEDS: MELATONIN 5 MG TABLET FEED TUBE (20:40)
[2021-04-05] MEDS: METOPROLOL TARTRATE 25 MG TABLET FEED TUBE (20:40)
[2021-04-05] MEDS: INSULIN GLARGINE (*BKC) 100 UNITS/ML 14 UNITS SUB-Q (20:41)
[2021-04-05] MEDS: ATORVASTATIN 40 MG TABLET 80 MG FEED TUBE (20:41)
[2021-04-05] MEDS: MICONAZOLE NITRATE 2% VAGINAL CREAM 45 GM TUBE 1 APPFUL VAGINAL (20:42)
[2021-04-05 20:59] LABS: Glucose Point of Care 145 mg/dl (65-105)
[2021-04-05 23:39] LABS: Glucose Point of Care 104 mg/dl (65-105)
[2021-04-06 05:11] VITALS: BP 148/72; PULSE 112; RESP 16; TEMP 37.6; O2SAT 98
[2021-04-06] MEDS: levETIRAcetam ORAL SOL 500 MG/5 ML UDC FEED TUBE ×2 (05:17→17:52)
[2021-04-06] MEDS: LORazepam (*CRX) 0.5 MG TABLET FEED TUBE ×3 (05:17→15:56)
[2021-04-06 05:29] LABS: Glucose Point of Care 99 mg/dl (65-105)
[2021-04-06 06:19] LABS: Hematocrit 27.7 % (37.0-47.0); Hemoglobin 8.6 g/dL (12.0-15.0); Mean Corpuscular Hemoglobin 29.2 pg (26-34); Mean Corpuscular Volume 93.9 fl (80-100); Platelet Count Result 364 k/mm3 (150-375); Red Blood Count 2.95 M/mm3 (4.2-5.4); Red Cell Distribution Width 14.1 % (11.5-14.5); White Blood Count 13.6 K/mm3 (4.5-10.0)
[2021-04-06 06:33] LABS: Albumin Level 2.5 g/dL (3.5-5.1); Anion Gap 8 mmol/L (8-16); Blood Urea Nitrogen 61 mg/dL (7-17); Calcium 7.7 mg/dL (8.4-10.2); Carbon Dioxide 27 mmol/L (22-30); Chloride 116 mmol/L (98-107); Estimated CRCL calculation 24 ml/min; Estimated Glomerular Filt Rate 17; Glucose 104 mg/dL (65-105); Phosphorus 2.4 mg/dL (2.5-4.5); Potassium 3.3 mmol/L (3.4-5.0); Sodium 151 mmol/L (137-145)
--- NOTE | 2021-04-06 06:38 | P.PNNP_ITS ---
Progress Note: A&P Assessment and Plan (1) JUVENTINO (acute kidney injury): Code(s): N17.9 - Acute kidney failure, unspecified Status: Acute Assessment and Plan: * suspect she has an element of JUVENTINO/ARF * evaluation to date: - renal ultrasound without obstruction - urinalysis has blood, protein, and sugar - urine electrolytes are pre renal -no eosinophilia * renal scan with adequate blood flow, uptake without excretion: possible ATN * Creatinine is up to 3.9 * Sodium level is 151. * She is now on full-strength tube feedings plus tube feeding flushes. * Urine electrolytes show pre renal azotemia. * she is on TFs at 60, TF flushes, and IVFs 1/2NS at 75. * due to higher sodium, will change to D5W at 100. * CK is ordered and pending. pt had elevated ck in the past. * recheck a sodium this afternoon. (2) Chronic kidney disease: Code(s): N18.9 - Chronic kidney disease, unspecified Status: Chronic Assessment and Plan: * unclear what her baseline creatinine is * [facility] stage IIIB as a problem/diagnosis * proteinuria suggests a component of diabetes, hypertension, and vascular disease affecting the kidneys * follow trend of labs (3) Hypertension: Qualifiers: Hypertension type: unspecified Qualified Code(s): I10 - Essential (parvez zulma) hypertension Code(s): I10 - Essential (primary) hypertension Status: Chronic Assessment and Plan: * Systolic is in the 120s to 140s * With acute kidney injury, leave blood pressure mildly elevated for now. * She is on metoprolol and amlodipine. 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 Subjective Date/time seen: 04/06/21 06:38 Interval history: The patient is comfortable lying in bed. No swelling. looks comfortable breathing. Exam Narrative: Exam Narrative: General: WD/WN female in NAD; unresponsive Heart: normal S1 and S2; No rub or gallop Lungs: clear bilaterally Abdomen: soft, nontender, nondistended, positive bowel sounds Extremities: no edema Skin: no rash or subcu nodules Objective Data Vital Signs Vital Signs: Vital Signs - 24 hr 04/05/21 11:35 04/05/21 14:00 04/05/21 20:25 Temperature 36.3 C L 36.8 C Pulse Rate 100 99 118 H Respiratory Rate 16 18 Blood Pressure 127/72 119/79 Pulse Oximetry 98 100 04/05/21 20:40 04/06/21 05:11 Temperature 37.6 C H Pulse Rate 118 H 112 H Respiratory Rate 16 Blood Pressure 148/72 H Pulse Oximetry 98 Intake/Output Intake/Output: Intake & Output 04/03/21 04/04/21 04/05/21 04/06/21 23:59 23:59 23:59 23:59 Intake Total 1687.0 3701 29
--- NOTE | 2021-04-06 06:38 | PM.PNNEP ---
Progress Note: A&P Assessment and Plan (1) JUVENTINO (acute kidney injury): Code(s): N17.9 - Acute kidney failure, unspecified Status: Acute Assessment and Plan: suspect she has an element of JUVENTINO/ARF evaluation to date: - renal ultrasound without obstruction - urinalysis has blood, protein, and sugar - urine electrolytes are pre renal -no eosinophilia renal scan with adequate blood flow, uptake without excretion: possible ATN Creatinine is up to 3.9 Sodium level is 151. She is now on full-strength tube feedings plus tube feeding flushes. Urine electrolytes show pre renal azotemia. she is on TFs at 60, TF flushes, and IVFs 1/2NS at 75. due to higher sodium, will change to D5W at 100. CK is ordered and pending. pt had elevated ck in the past. recheck a sodium this afternoon. (2) Chronic kidney disease: Code(s): N18.9 - Chronic kidney disease, unspecified Status: Chronic Assessment and Plan: unclear what her baseline creatinine is however, [facility]-way records list chronic kidney disease stage IIIB as a problem/diagnosis proteinuria suggests a component of diabetes, hypertension, and vascular disease affecting the kidneys follow trend of labs (3) Hypertension: Qualifiers: Hypertension type: unspecified Qualified Code(s): I10 - Essential (primary) hypertension Code(s): I10 - Essential (primary) hypertension Status: Chronic Assessment and Plan: Systolic is in the 120s to 140s With acute kidney injury, leave blood pressure mildly elevated for now. She is on metoprolol and amlodipine. 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 Subjective Date/time seen: 04/06/21 06:38 Interval history: The patient is comfortable lying in bed. No swelling. looks comfortable breathing. Exam Narrative: Exam Narrative: General: WD/WN female in NAD; unresponsive Heart: normal S1 and S2; No rub or gallop Lungs: clear bilaterally Abdomen: soft, nontender, nondistended, positive bowel sounds Extremities: no edema Skin: no rash or subcu nodules Objective Data Vital Signs Vital Signs: Vital Signs - 24 hr 04/05/21 11:35 04/05/21 14:00 04/05/21 20:25 Temperature 36.3 C L 36.8 C Pulse Rate 100 99 118 H Respiratory Rate 16 18 Blood Pressure 127/72 119/79 Pulse Oximetry 98 100 04/05/21 20:40 04/06/21 05:11 Temperature 37.6 C H Pulse Rate 118 H 112 H Respiratory Rate 16 Blood Pressure 148/72 H Pulse Oximetry 98 Intake/Output Intake/Output: Intake & Output 04/03/21 04/04/21 04/05/21 04/06/21 23:59 23:59 23:59 23:59 Intake Total 1687.0 3701 2971 120 Output Total 1125 1000 1050 600 Balance 562.0 2701 1921 -480 Meds/Results Medications: Active Medications Generic Name Dose Route Start Last Admin Trade Name Freq PRN Reason Stop Dose Admin Acetaminophen 650 mg 03/31/21 13:14 04/05/21 20:39 Acetaminophen Elixir 325 Mg/10.15 Ml Udc FEED TUBE 650 mg Q6H PRN Administration Pain Amlodipine Besylate 10 mg 03/31/21 13:20 04/05/21 08:04 Amlodipine Besylate 5 Mg Tablet FEED TUBE 10 mg DAILY RYLIE Administration Amoxicillin 1,000 mg 04/01/21 21:00 04/05/21 20:37 Amoxicillin 250 Mg/5 Ml Suspension FEED TUBE 1,000 mg Q12HR RYLIE Administration Atorvastatin Calcium 80 mg 03/30/21
[2021-04-06 06:48] LABS: Creatine Kinase 2274 U/L (30-135)
[2021-04-06] MEDS: DEXTROSE 5% 1,000 ML 1,000 ML 100 ML IV CONT (07:30)
[2021-04-06] MEDS: amLODIPine BESYLATE 5 MG TABLET 10 MG FEED TUBE (09:21)
[2021-04-06] MEDS: metroNIDAZOLE 250 MG TABLET 500 MG FEED TUBE ×2 (09:21→21:29)
[2021-04-06] MEDS: CITALOPRAM HYDROBROMIDE 20 MG TABLET FEED TUBE (09:21)
[2021-04-06] MEDS: polyethylene glycoL 3350 17 GM POWD.PACK FEED TUBE (09:21)
[2021-04-06 09:22] VITALS: PULSE 104
[2021-04-06] MEDS: VALPROIC ACID LIQ 250 MG/5 ML ORAL SOLUTION UDC 750 MG FEED TUBE ×2 (09:22→21:31)
[2021-04-06] MEDS: METOPROLOL TARTRATE 25 MG TABLET FEED TUBE ×2 (09:22→21:30)
[2021-04-06] MEDS: ACETAMINOPHEN ELIXIR 325 MG/10.15 ML UDC 650 MG FEED TUBE ×2 (09:23→21:31)
[2021-04-06] MEDS: HEPARIN SODIUM 5,000 UNITS/ML VIAL 5000 UNITS SUB-Q ×2 (09:24→21:31)
[2021-04-06] MEDS: LANSOPRAZOLE ORAL SUSP 30 MG/10 ML ORAL.SUSP FEED TUBE ×2 (09:24→16:04)
[2021-04-06] MEDS: AMOXICILLIN 250 MG/5 ML SUSPENSION 1000 MG FEED TUBE ×2 (09:24→21:30)
[2021-04-06 11:23] LABS: Glucose Point of Care 209 mg/dl (65-105)
[2021-04-06] MEDS: INSULIN ASPART (*BKC) 100 UNITS/ML SUB-Q ×2 (11:24→17:55)
--- NOTE | 2021-04-06 12:52 | PM.IMPN ---
Progress Note: A&P Assessment and Plan (1) Seizure disorder as sequela of cerebrovascular accident: Code(s): I69.398 - Other sequelae of cerebral infarction; G40.909 - Epilepsy, unspecified, not intractable, without status epilepticus Status: Acute Assessment and Plan: Patient was having intermittent seizures clinically. EEG showing abnormal record to the presence of bihemispheric delta activity but no spikes. Currently on VPA and Keppra. PEG placed 04/01. Baclofen decreased due to JUVENTINO so Ativan was schedule for her spasticity. Will advance Ativan. (2) Acute CVA (cerebrovascular accident): Code(s): I63.9 - Cerebral infarction, unspecified Status: Acute Assessment and Plan: Patient presents with altered mental status. CT of the brain showing old bilateral strokes right greater than left but no acute findings. She ultimately had an MRI of the brain on March 27 which showed multiple small infarcts left frontal and basal ganglia area. She is NPO currently and receiving TF. Aspirin and statin, but ASA on hold 04/01 due to DU. Echocardiogram was essentially normal. Carotid ultrasound was incomplete. Mental status not improved much and suspect this is the patient's new baseline. Family made aware (3) Altered mental status: Qualifiers: Altered mental status type: unspecified Qualified Code(s): R41.82 - Altered mental status, unspecified Code(s): R41.82 - Altered mental status, unspecified Status: Acute Assessment and Plan: B12/Folate/TSH normal. MRI showing acute CVA. LP on 03/27/21 showed 31 red cells and 3 nucleated cells majority of which were lymphocytes. Glucose was 72 and protein was 83. CSF VDRL and HSV negative. Other studies are still pending. All cultures remain negative. [place] the AMS related to acute CVA. (4) Acute kidney injury superimposed on chronic kidney disease: Code(s): N17.9 - Acute kidney failure, unspecified; N18.9 - Chronic kidney disease, unspecified Status: Acute Assessment and Plan: Baseline creatinine is around 3.0 per chart review. Creatinine 4.1 on admission felt related to dehydration and/or rhabdomyolysis. Renal ultrasound showing no acute issues. Protein to creatinine ratio is 4.9g. Cr low as 2.5 on 04/01 but up to 3.9 today. Probably related to need for more free water and recurrent rhabdomyolysis. IV fluids adjusted. Appreciate nephrology input. (5) Rhabdomyolysis: Qualifiers: Rhabdomyolysis type: non-traumatic Qualified Code(s): M62.82 - Rhabdomyolysis Code(s): M62.82 - Rhabdomyolysis Status: Acute Assessment and Plan: Total creatinine kinase climbed to 2620. With IV fluids, levels have dropped to 545. Fluids resumed due to JUVENTINO. TCK today back up to 2274 felt related to her spasticity. IV fluids changed. Follow levels. (6) Anemia: Qualifiers: Anemia type: due to chronic kidney disease Chronic kidney disease stage: stage 4 (severe) Qualified Code(s): N18.4 - Chronic kidney disease, stage 4 (severe); D63.1 - Anemia in chronic kidney disease Code(s): D64.9 - Anemia, unspecified Status: Acute Assessment and Plan: Related to CKD and chronic GI blood loss. Hgb sdropped to 8.6 today but has been receiving more IV fluids. Follow. (7) Hypertension: Qualifiers: Hypertension type: unspecified Qualified Code(s): I10 - Essential (primary) hypertension Code(s): I10 - Essential (primary) hypertension Status: Chronic Assessment and Plan: Patient's blood pressure was reviewed on 04/06 Blood pressure better controlled (SBP 110-140). Continue metoprolol and Norvasc per PEG. (8) Leukocytosis: Qualifiers: Leukocytosis type: unspecified Qualified Code(s): D72.829 - Elevated white blood cell count, unspecified Code(s): D72.829 - Elevated white blood cell count, unspecified
[2021-04-06 13:37] VITALS: BP 135/82; PULSE 97; RESP 20; TEMP 36.2; O2SAT 100
[2021-04-06 17:00] LABS: Anion Gap 5 mmol/L (8-16); Blood Urea Nitrogen 61 mg/dL (7-17); Calcium 7.1 mg/dL (8.4-10.2); Carbon Dioxide 27 mmol/L (22-30); Chloride 112 mmol/L (98-107); Estimated CRCL calculation 27 ml/min; Estimated Glomerular Filt Rate 19; Glucose 302 mg/dL (65-105); Potassium 3.1 mmol/L (3.4-5.0); Sodium 144 mmol/L (137-145)
[2021-04-06 17:53] LABS: Glucose Point of Care 317 mg/dl (65-105)
[2021-04-06] MEDS: DEXTROSE 5% 1,000 ML 1,000 ML 75 ML IV CONT (17:55)
[2021-04-06 21:18] VITALS: BP 146/95; PULSE 98; RESP 16; TEMP 36; O2SAT 100
[2021-04-06] MEDS: ATORVASTATIN 40 MG TABLET 80 MG FEED TUBE (21:29)
[2021-04-06] MEDS: MELATONIN 5 MG TABLET FEED TUBE (21:29)
[2021-04-06] MEDS: clonazePAM (*CRX) 0.5 MG TABLET 1 MG FEED TUBE (21:29)
[2021-04-06 21:30] VITALS: PULSE 98
[2021-04-06] MEDS: BACLOFEN 5 MG TABLET FEED TUBE (21:30)
[2021-04-06] MEDS: MICONAZOLE NITRATE 2% VAGINAL CREAM 45 GM TUBE 1 APPFUL VAGINAL (21:31)
[2021-04-06] MEDS: INSULIN GLARGINE (*BKC) 100 UNITS/ML 14 UNITS SUB-Q (21:32)
[2021-04-06 22:22] LABS: Anion Gap 6 mmol/L (8-16); Blood Urea Nitrogen 63 mg/dL (7-17); Calcium 7.2 mg/dL (8.4-10.2); Carbon Dioxide 25 mmol/L (22-30); Chloride 111 mmol/L (98-107); Estimated CRCL calculation 27 ml/min; Estimated Glomerular Filt Rate 19; Glucose 376 mg/dL (65-105); Potassium 3.3 mmol/L (3.4-5.0); Sodium 142 mmol/L (137-145)
[2021-04-07] MEDS: SODIUM CHLORIDE 0.45% 1,000 ML 30 ML IV CONT (00:20)
[2021-04-07] MEDS: INSULIN ASPART (*BKC) 100 UNITS/ML SUB-Q ×4 (01:00→17:20)
[2021-04-07 01:04] LABS: Glucose Point of Care 353 mg/dl (65-105)
[2021-04-07 04:26] VITALS: BP 147/79; PULSE 88; RESP 16; TEMP 36; O2SAT 99
[2021-04-07] MEDS: clonazePAM (*CRX) 0.5 MG TABLET 1 MG FEED TUBE ×3 (05:10→21:13)
[2021-04-07 05:13] LABS: Glucose Point of Care 342 mg/dl (65-105)
[2021-04-07] MEDS: levETIRAcetam ORAL SOL 500 MG/5 ML UDC FEED TUBE ×2 (05:14→17:16)
[2021-04-07 06:02] LABS: Hematocrit 27.8 % (37.0-47.0); Hemoglobin 8.7 g/dL (12.0-15.0); Mean Corpuscular HGB Conc 31.3 g/dl (32-36); Mean Corpuscular Hemoglobin 28.9 pg (26-34); Mean Corpuscular Volume 92.4 fl (80-100); Mean Platelet Volume 12.1 fl (7.4-10.4); Platelet Count Result 369 k/mm3 (150-375); Red Blood Count 3.01 M/mm3 (4.2-5.4); Red Cell Distribution Width 13.9 % (11.5-14.5); White Blood Count 12.3 K/mm3 (4.5-10.0)
[2021-04-07 06:23] LABS: Albumin Level 2.5 g/dL (3.5-5.1); Anion Gap 7 mmol/L (8-16); Blood Urea Nitrogen 59 mg/dL (7-17); Calcium 7.5 mg/dL (8.4-10.2); Carbon Dioxide 27 mmol/L (22-30); Chloride 110 mmol/L (98-107); Creatine Kinase 1568 U/L (30-135); Estimated CRCL calculation 27 ml/min; Estimated Glomerular Filt Rate 19; Glucose 344 mg/dL (65-105); Phosphorus 3.3 mg/dL (2.5-4.5); Potassium 3.4 mmol/L (3.4-5.0); Sodium 144 mmol/L (137-145)
--- NOTE | 2021-04-07 09:21 | PC.NURSE ---
Patient medications administered by clinical instructor and student.
[2021-04-07 09:32] VITALS: BP 148/85; PULSE 81; RESP 18; TEMP 35.6; O2SAT 100
[2021-04-07] MEDS: HEPARIN SODIUM 5,000 UNITS/ML VIAL 5000 UNITS SUB-Q ×2 (09:54→21:19)
[2021-04-07 09:55] VITALS: PULSE 81
[2021-04-07] MEDS: METOPROLOL TARTRATE 25 MG TABLET FEED TUBE ×2 (09:55→21:16)
[2021-04-07] MEDS: amLODIPine BESYLATE 5 MG TABLET 10 MG FEED TUBE (09:55)
[2021-04-07] MEDS: CITALOPRAM HYDROBROMIDE 20 MG TABLET FEED TUBE (09:55)
[2021-04-07] MEDS: VALPROIC ACID LIQ 250 MG/5 ML ORAL SOLUTION UDC 750 MG FEED TUBE ×2 (09:56→21:19)
[2021-04-07] MEDS: metroNIDAZOLE 250 MG TABLET 500 MG FEED TUBE ×2 (09:57→21:13)
[2021-04-07] MEDS: INSULIN GLARGINE (*BKC) 100 UNITS/ML 10 UNITS SUB-Q (09:59)
[2021-04-07] MEDS: LANSOPRAZOLE ORAL SUSP 30 MG/10 ML ORAL.SUSP FEED TUBE ×2 (10:00→17:17)
[2021-04-07] MEDS: AMOXICILLIN 250 MG/5 ML SUSPENSION 1000 MG FEED TUBE (10:01)
--- NOTE | 2021-04-07 10:47 | P.PNNP_ITS ---
Progress Note: A&P Assessment and Plan (1) JUVENTINO (acute kidney injury): Code(s): N17.9 - Acute kidney failure, unspecified Status: Acute Assessment and Plan: * suspect she has an element of JUVENTINO/ARF * evaluation to date: - renal ultrasound without obstruction - urinalysis has blood, protein, and sugar - urine electrolytes are pre renal - no eosinophilia * renal scan with adequate blood flow, uptake without excretion: possible ATN * follow trend (2) Chronic kidney disease: Code(s): N18.9 - Chronic kidney disease, unspecified Status: Chronic Assessment and Plan: * unclear what her baseline creatinine is * however, skilled nursing records list chronic kidney disease stage IIIB as a problem/diagnosis * proteinuria suggests a component of diabetes, hypertension, and vascular disease affecting the kidneys * follow trend of labs (3) Hypertension: Qualifiers: Hypertension type: unspecified Qualified Code(s): I10 - Essential (primary) hypertension Code(s): I10 - Essential (primary) hypertension Status: Chronic Assessment and Plan: * systolic is in the 120s to 140s * with acute kidney injury, leave blood pressure mildly elevated for now * follow hemodynamics (4) History of CVA (cerebrovascular accident): Code(s): Z86.73 - Personal history of transient ischemic attack (TIA), and cerebral infarction without residual deficits Status: Inactive Assessment and Plan: * imaging with several strokes * left sided weakness noted (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 Subjective Date/time seen: 04/07/21 10:47 No real change since last seen -- remains non-communicative/nonverbal although nursing reports there are times when she cries out and seems to stiffen up (seizure activity?). Exam Narrative: Exam Narrative: General: WD/WN female in NAD; unresponsive Heart: normal S1 and S2; No rub or gallop Lungs: clear bilaterally Abdomen: soft, nontender, nondistended, positive bowel sounds Extremities: no edema Skin: no rash Objective Data Vital Signs Vital Signs: Vital Signs Temp Pulse Resp BP Pulse Ox 04/07/21 09:55 81 04/07/21 09:32 35.6 C L 81 18 148/85 H 100 04/07/21 04:26 36.0 C L 88 16 147/79 H 99 04/06/21 21:30 98 04/06/21 21:18 36.0 C L 98 16 146/95 H 100 04/06/21 13:37 36.2 C L 97 20 135/82 100 Intake/Output Intake/Output: Intake & Output 04/04/21 04/05/21 04/06/21 04/07/21 23:59 23:59 23:59 23:59 Intake Total 3701 2971 2629 1180 Output Total 1000 1050 1350 550 Balance 2701 1921 1279 630 Meds/Results Medications: Active Medications Generic Name Dose Route Start Last Admin Trade Name Freq PRN Reason Stop Dose Admin Acetaminophen 650 mg 03/31/21 13:14 04/06/21 21:31 Acetaminophen Elixir 325 Mg/10.15 Ml Udc FEED TUBE 650 mg Q6H PRN Administration Pain
--- NOTE | 2021-04-07 10:47 | PM.PNNEP ---
Progress Note: A&P Assessment and Plan (1) JUVENTINO (acute kidney injury): Code(s): N17.9 - Acute kidney failure, unspecified Status: Acute Assessment and Plan: suspect she has an element of JUVENTINO/ARF evaluation to date: - renal ultrasound without obstruction - urinalysis has blood, protein, and sugar - urine electrolytes are pre renal - no eosinophilia renal scan with adequate blood flow, uptake without excretion: possible ATN follow trend (2) Chronic kidney disease: Code(s): N18.9 - Chronic kidney disease, unspecified Status: Chronic Assessment and Plan: unclear what her baseline creatinine is however, [facility] records list chronic kidney disease stage IIIB as a problem/diagnosis proteinuria suggests a component of diabetes, hypertension, and vascular disease affecting the kidneys follow trend of labs (3) Hypertension: Qualifiers: Hypertension type: unspecified Qualified Code(s): I10 - Essential (primary) hypertension Code(s): I10 - Essential (primary) hypertension Status: Chronic Assessment and Plan: systolic is in the 120s to 140s with acute kidney injury, leave blood pressure mildly elevated for now follow hemodynamics (4) History of CVA (cerebrovascular accident): Code(s): Z86.73 - Personal history of transient ischemic attack (TIA), and cerebral infarction without residual deficits Status: Inactive Assessment and Plan: imaging with several strokes left sided weakness noted (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 Subjective Date/time seen: 04/07/21 10:47 No real change since last seen -- remains non-communicative/nonverbal although nursing reports there are times when she cries out and seems to stiffen up (seizure activity?). Exam Narrative: Exam Narrative: General: WD/WN female in NAD; unresponsive Heart: normal S1 and S2; No rub or gallop Lungs: clear bilaterally Abdomen: soft, nontender, nondistended, positive bowel sounds Extremities: no edema Skin: no rash Objective Data Vital Signs Vital Signs: Vital Signs Temp Pulse Resp BP Pulse Ox 04/07/21 09:55 81 04/07/21 09:32 35.6 C L 81 18 148/85 H 100 04/07/21 04:26 36.0 C L 88 16 147/79 H 99 04/06/21 21:30 98 04/06/21 21:18 36.0 C L 98 16 146/95 H 100 04/06/21 13:37 36.2 C L 97 20 135/82 100 Intake/Output Intake/Output: Intake & Output 04/04/21 04/05/21 04/06/21 04/07/21 23:59 23:59 23:59 23:59 Intake Total 3701 2971 2629 1180 Output Total 1000 1050 1350 550 Balance 2701 1921 1279 630 Meds/Results Medications: Active Medications Generic Name Dose Route Start Last Admin Trade Name Freq PRN Reason Stop Dose Admin Acetaminophen 650 mg 03/31/21 13:14 04/06/21 21:31 Acetaminophen Elixir 325 Mg/10.15 Ml Udc FEED TUBE 650 mg Q6H PRN Administration Pain Amlodipine Besylate 10 mg 03/31/21 13:20 04/07/21 09:55 Amlodipine Besylate 5 Mg Tablet FEED TUBE 10 mg DAILY RYLIE Administration Amoxicillin 1,000 mg 04/07/21 21:00 Amoxicillin 500 Mg Capsule FEED TUBE Q12HR RYLIE Atorvastatin Calcium 80 mg 03/30/21 21:00 04/06/21 21:29 Atorvastatin 40 Mg Tablet FEED TUBE 04/29/21 21:01 80 mg HS RYLIE Administration Baclofen 5 mg 04/04/21 21:00 04/06/21 21:30 Baclofen 5 Mg Tablet FEED TUBE 04/29/21 21:01 5 mg HS RYLIE Administration Bisacodyl 10 mg 03/30/21 14:31 04/03/21 17:40 Bisacodyl 10 Mg Suppository RECTAL 10 mg DAILY PRN Administration Constipation Citalopram Hydrobromide 20 mg 03/31/21 09:00 04/07/21 09:55 Ci
[2021-04-07] MEDS: SILVERGEL (ELTA) 45 ML 1 APPLIC TOPICAL (11:30)
[2021-04-07 12:19] LABS: Glucose Point of Care 321 mg/dl (65-105)
[2021-04-07] MEDS: ACETAMINOPHEN ELIXIR 325 MG/10.15 ML UDC 650 MG FEED TUBE ×2 (12:20→21:19)
[2021-04-07 14:17] VITALS: BP 133/69; PULSE 84; RESP 22; TEMP 35.7; O2SAT 100
--- NOTE | 2021-04-07 15:11 | PM.IMPN ---
Progress Note: A&P Assessment and Plan (1) Seizure disorder as sequela of cerebrovascular accident: Code(s): I69.398 - Other sequelae of cerebral infarction; G40.909 - Epilepsy, unspecified, not intractable, without status epilepticus Status: Acute Assessment and Plan: Patient was having intermittent seizures clinically early on. EEG showing abnormal record to the presence of bihemispheric delta activity but no spikes. Started on VPA and Keppra and symptoms improved. PEG placed 04/01. Still having these episodes of spasticities. Baclofen decreased due to JUVENTINO. Ativan was scheduled but not helpful. DIscussed with neurology last night who recommended Klonopin 1mg Q8hr which was ordered. Will continue the same. Appreciate neurology help. (2) Acute CVA (cerebrovascular accident): Code(s): I63.9 - Cerebral infarction, unspecified Status: Acute Assessment and Plan: Patient presents with altered mental status. CT of the brain showing old bilateral strokes right greater than left but no acute findings. She ultimately had an MRI of the brain on March 27 which showed multiple small infarcts left frontal and basal ganglia area. She is NPO currently and receiving TF. Aspirin and statin, but ASA on hold 04/01 due to DU. Echocardiogram was essentially normal. Carotid ultrasound was incomplete. Mental status not improved much and suspect this is the patient's new baseline. Family made aware. Resume ASA (3) Altered mental status: Qualifiers: Altered mental status type: unspecified Qualified Code(s): R41.82 - Altered mental status, unspecified Code(s): R41.82 - Altered mental status, unspecified Status: Acute Assessment and Plan: B12/Folate/TSH normal. MRI showing acute CVA. LP on 03/27/21 showed 31 red cells and 3 nucleated cells majority of which were lymphocytes. Glucose was 72 and protein was 83. CSF VDRL, Lyme and HSV negative. Other studies are still pending. All cultures remain negative. [place] the AMS related to acute CVA. (4) Acute kidney injury superimposed on chronic kidney disease: Code(s): N17.9 - Acute kidney failure, unspecified; N18.9 - Chronic kidney disease, unspecified Status: Acute Assessment and Plan: Baseline creatinine is around 3.0 per chart review. Creatinine 4.1 on admission felt related to dehydration and/or rhabdomyolysis. Renal ultrasound showing no acute issues. Protein to creatinine ratio is 4.9g. Cr low as 2.5 on 04/01 but up to 3.9 yesterday. Probably related to need for more free water and recurrent rhabdomyolysis. Cr better today. IV fluids adjusted. Appreciate nephrology input. (5) Rhabdomyolysis: Qualifiers: Rhabdomyolysis type: non-traumatic Qualified Code(s): M62.82 - Rhabdomyolysis Code(s): M62.82 - Rhabdomyolysis Status: Acute Assessment and Plan: Total creatinine kinase climbed to 2620. With IV fluids, levels have dropped to 545. Fluids resumed due to JUVENTINO. TCK yesterday back up to 2274 felt related to her spasticity. IV fluids changed. TCK 1570 now. Follow levels. (6) Anemia: Qualifiers: Anemia type: due to chronic kidney disease Chronic kidney disease stage: stage 4 (severe) Qualified Code(s): N18.4 - Chronic kidney disease, stage 4 (severe); D63.1 - Anemia in chronic kidney disease Code(s): D64.9 - Anemia, unspecified Status: Acute Assessment and Plan: Related to CKD and chronic GI blood loss. Hgb stable in the 8 range today. No evidence of bleeding. Follow. (7) Hypertension: Qualifiers: Hypertension type: unspecified Qualified Code(s): I10 - Essential (primary) hypertension Code(s): I10 - Essential (primary) hypertension Status: Chronic Assessment and Plan: Patient's blood pressure was reviewed on 04/07 Blood pressure better controlled (SBP 110-140). Continue metoprolol and Norv
--- NOTE | 2021-04-07 15:51 | PC.NURSE ---
On 04/07/21, the student, [ Daphne Curran], provided care and completed [facility] documentation on this patient. I have reviewed the student's documentation and agree with the findings.
[2021-04-07] MEDS: ASPIRIN 81 MG CHEWABLE TABLET FEED TUBE (17:17)
[2021-04-07 17:22] LABS: Glucose Point of Care 260 mg/dl (65-105)
[2021-04-07 21:12] VITALS: BP 131/63; PULSE 109; RESP 20; TEMP 36.6; O2SAT 97
[2021-04-07] MEDS: ATORVASTATIN 40 MG TABLET 80 MG FEED TUBE (21:13)
[2021-04-07] MEDS: BACLOFEN 5 MG TABLET FEED TUBE (21:13)
[2021-04-07] MEDS: AMOXICILLIN 500 MG CAPSULE 1000 MG FEED TUBE (21:13)
[2021-04-07] MEDS: MELATONIN 5 MG TABLET FEED TUBE (21:13)
[2021-04-07 21:16] VITALS: PULSE 108
[2021-04-07] MEDS: INSULIN GLARGINE (*BKC) 100 UNITS/ML 14 UNITS SUB-Q (21:20)
[2021-04-08] MEDS: INSULIN ASPART (*BKC) 100 UNITS/ML SUB-Q ×3 (00:01→18:06)
[2021-04-08 00:11] LABS: Glucose Point of Care 214 mg/dl (65-105)
[2021-04-08] MEDS: levETIRAcetam ORAL SOL 500 MG/5 ML UDC FEED TUBE (05:11)
[2021-04-08] MEDS: clonazePAM (*CRX) 0.5 MG TABLET 1 MG FEED TUBE ×2 (05:11→13:43)
[2021-04-08 05:18] LABS: Glucose Point of Care 187 mg/dl (65-105)
[2021-04-08 06:00] VITALS: BP 142/76; PULSE 103; RESP 18; TEMP 36.9; O2SAT 97
[2021-04-08 06:02] LABS: Hematocrit 28.1 % (37.0-47.0); Hemoglobin 8.9 g/dL (12.0-15.0); Mean Corpuscular HGB Conc 31.7 g/dl (32-36); Mean Corpuscular Hemoglobin 29.4 pg (26-34); Mean Corpuscular Volume 92.7 fl (80-100); Mean Platelet Volume 12.2 fl (7.4-10.4); Platelet Count Result 401 k/mm3 (150-375); Red Blood Count 3.03 M/mm3 (4.2-5.4); Red Cell Distribution Width 14.1 % (11.5-14.5)
[2021-04-08 06:15] LABS: Albumin Level 2.4 g/dL (3.5-5.1); Anion Gap 6 mmol/L (8-16); Blood Urea Nitrogen 59 mg/dL (7-17); Calcium 7.9 mg/dL (8.4-10.2); Carbon Dioxide 28 mmol/L (22-30); Chloride 111 mmol/L (98-107); Creatine Kinase 1278 U/L (30-135); Estimated CRCL calculation 29 ml/min; Estimated Glomerular Filt Rate 21; Glucose 208 mg/dL (65-105); Phosphorus 4.1 mg/dL (2.5-4.5); Potassium 3.5 mmol/L (3.4-5.0); Sodium 145 mmol/L (137-145)
[2021-04-08] MEDS: VALPROIC ACID LIQ 250 MG/5 ML ORAL SOLUTION UDC 750 MG FEED TUBE (08:31)
[2021-04-08 08:32] VITALS: PULSE 103
[2021-04-08] MEDS: HEPARIN SODIUM 5,000 UNITS/ML VIAL 5000 UNITS SUB-Q (08:32)
[2021-04-08] MEDS: ASPIRIN 81 MG CHEWABLE TABLET FEED TUBE (08:32)
[2021-04-08] MEDS: metroNIDAZOLE 250 MG TABLET 500 MG FEED TUBE (08:32)
[2021-04-08] MEDS: amLODIPine BESYLATE 5 MG TABLET 10 MG FEED TUBE (08:32)
[2021-04-08] MEDS: METOPROLOL TARTRATE 25 MG TABLET FEED TUBE (08:32)
[2021-04-08] MEDS: AMOXICILLIN 500 MG CAPSULE 1000 MG FEED TUBE (08:32)
[2021-04-08] MEDS: CITALOPRAM HYDROBROMIDE 20 MG TABLET FEED TUBE (08:32)
[2021-04-08] MEDS: SILVERGEL (ELTA) 45 ML 1 APPLIC TOPICAL (08:36)
[2021-04-08] MEDS: LANSOPRAZOLE ORAL SUSP 30 MG/10 ML ORAL.SUSP FEED TUBE ×2 (08:36→16:56)
[2021-04-08] MEDS: ACETAMINOPHEN ELIXIR 325 MG/10.15 ML UDC 650 MG FEED TUBE ×2 (08:37→17:08)
--- NOTE | 2021-04-08 11:00 | PCNFU ---
Nutrition Follow-Up Complete: Inadequate Oral Intake as related to AMS as evidenced by NPO x 5 days Goal: Meet estimated nutritional needs Patient is meeting current nutritional goal. Pt current nutrition is Glucerna 1.2 at 60 ml/hr Last recorded weight is 94.8 kg on 03/26, current re-weight is 97.5 kg. Bowel Motility:+BM 04/07 Labs Reviewed: Glu 208,BUN 59,Cr 3.2,Alb 2.4,Hgb 8.9, Hct 28.1 Meds Noted:Miralax,Celexa,Keppra,Lopressor,Dulcolax,Lantus,Lopressor. Lipitor. Additional Notes:Patient seen today for nutrition follow up. Tube feedings are being tolerating of Glucerna 1.2 at 60 ml/hr providing patient with 1584 kcals and 79 gms protein. Current tube feeding is meeting caloric needs. Agree with diet orders. Monitoring: Will monitor every Sunday and Sunday.
--- NOTE | 2021-04-08 11:14 | PM.DS ---
DS: Admitting Diagnosis Admitting Diagnosis Admitting Diagnosis: Altered mental status DS: Discharge Diagnosis Discharge Diagnosis (1) Seizure disorder as sequela of cerebrovascular accident: Code(s): I69.398 - Other sequelae of cerebral infarction; G40.909 - Epilepsy, unspecified, not intractable, without status epilepticus Status: Acute Assessment and Plan: Early in her admission, patient was having intermittent seizures clinically. EEG showing abnormal record to the presence of bihemispheric delta activity but no spikes. Started on VPA and Keppra and symptoms improved. 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 Baclofen increased initially but had to be decreased due to JUVENTINO. Ativan was scheduled but not helpful; discussed with neurology who recommended Klonopin 1mg Q8hr which was ordered. This has helped some. Spoke with neurology who recommended stopping Keppra and continuing the VPA and Klonopin. He felt patient appropriate for discharge. (2) Acute CVA (cerebrovascular accident): Code(s): I63.9 - Cerebral infarction, unspecified Status: Acute Assessment and Plan: Patient presents with altered mental status. CT of the brain showing old bilateral strokes right greater than left but no acute findings. She ultimately had an MRI of the brain on March 27 which showed multiple small infarcts left frontal and basal ganglia area. She did not improve enough to perform a swallow evaluation. She was NPO and GTube was placed. Aspirin and statin, but ASA on hold 04/01 due to DU. ASA resumed but Lipitor held due to the rhabdomyolysis. Echocardiogram was essentially normal. Carotid ultrasound was incomplete. Mental status still not improved much and suspect this is the patient's new baseline. Family was made aware of this. (3) Altered mental status: Qualifiers: Altered mental status type: unspecified Qualified Code(s): R41.82 - Altered mental status, unspecified Code(s): R41.82 - Altered mental status, unspecified Status: Acute Assessment and Plan: B12/Folate/TSH normal. MRI showing acute CVA. LP on 03/27/21 showed 31 red cells and 3 nucleated cells majority of which were lymphocytes. Glucose was 72 and protein was 83. CSF VDRL, Lyme and HSV negative. Other studies are still pending. All cultures remain negative. [place] the AMS related to acute CVA. (4) Acute kidney injury superimposed on chronic kidney disease: Code(s): N17.9 - Acute kidney failure, unspecified; N18.9 - Chronic kidney disease, unspecified Status: Acute Assessment and Plan: Baseline creatinine is unknown but around 3.0 per chart review from [place]. Creatinine 4.1 on admission felt related to dehydration and/or rhabdomyolysis. Renal ultrasound showing no acute issues. Protein to creatinine ratio is 4.9g. Cr low as 2.5 on 04/01 but up to 3.9 for unclear reasons. Probably related to need for more free water and recurrent rhabdomyolysis. Cr better today at 3.2. Appreciate nephrology input. Discussed with nephrology who felt patient could be discharged with repeat labs in 1 week. (5) Rhabdomyolysis: Qualifiers: Rhabdomyolysis type: non-traumatic Qualified Code(s): M62.82 - Rhabdomyolysis Code(s): M62.82 - Rhabdomyolysis Status: Acute Assessment and Plan: Total creatinine kinase climbed to 2620. With IV fluids, levels have dropped to 545. Fluids resumed due to JUVENTINO. TCK climbed again back up to 2274 felt related to her spasticity. Had also been resumed on her home Lipitor. IV fluids changed and CK improved. Lipitor stopped. (6) Anemia: Qualifiers: Anemia type: due to chronic kidney disease Chronic kidney disease stage: stage 4 (severe) Qualified Code(s): N18.4 - Chronic kidney disease, stage 4 (severe); D63.1 - Anemia in chronic kidney disease Code(s): D64.9 - Anemia, unspecified
[2021-04-08 11:55] LABS: Glucose Point of Care 228 mg/dl (65-105)
--- NOTE | 2021-04-08 13:28 | WPDNEUROPN ---
Progress Note: A&P Assessment and Plan (1) Seizure disorder as sequela of cerebrovascular accident: Code(s): I69.398 - Other sequelae of cerebral infarction; G40.909 - Epilepsy, unspecified, not intractable, without status epilepticus Status: Acute Additional Plan unfortunately young lady with moyamoya disease, recurrent tonic posturing and spasm with non paroxysmal EEG and not significant responding to multiple medication except the clonazepam which will probably worth for the long-term care Review of Systems Review of Systems: All systems reviewed & are unremarkable except as noted in HPI and below Exam Const: General: well developed Nutritional Appearance: overweight Limitations: physical limitations Eyes: General: appearance normal, both eyes and all related structures Neck: Neck: full ROM Resp: Effort & Inspection: decreased respiratory effort Cardio: Rate: regular rate Neuro: General: no meningeal signs Cranial nerves: Yes Nystagmus not present Cognition (Neuro): abnormal cognition Speech: Abnormal speech present Gait exam (Neuro): Unable to assess gait Motor exam (neuro): Abnormal motor strength present Deep tendon reflexes (DTR's): Right triceps reflex intensity grade: 2+, Left triceps reflex intensity grade: 2+, Rt Biceps (C5, C6): 2+, Left biceps reflex intensity grade: 2+, Right brachioradialis reflex intensity grade: 2+, Left brachioradialis reflex intensity grade: 2+, Right patellar reflex intensity grade: 2+, Left patellar reflex intensity grade: 2+, Right ankle reflex intensity grade: 2+ and Left ankle reflex intensity grade: 2+ Plantar Reflex Responses: equivocal: bilateral Objective Data Vital Signs Vital Signs: Vital Signs - 24 hr 04/07/21 14:17 04/07/21 21:12 04/07/21 21:16 Temperature 35.7 C L 36.6 C Pulse Rate 84 109 H 108 H Respiratory Rate 22 H 20 Blood Pressure 133/69 131/63 Pulse Oximetry 100 97 04/08/21 06:00 04/08/21 08:32 Temperature 36.9 C Pulse Rate 103 H 103 H Respiratory Rate 18 Blood Pressure 142/76 H Pulse Oximetry 97 Intake/Output Intake/Output: Intake & Output 04/05/21 04/06/21 04/07/21 04/08/21 23:59 23:59 23:59 23:59 Intake Total 2971 2629 2456 1300 Output Total 1050 1350 550 750 Balance 1921 1279 1906 550 Meds/Results Medications: Active Medications Generic Name Dose Route Start Last Admin Trade Name Freq PRN Reason Stop Dose Admin Acetaminophen 650 mg 03/31/21 13:14 04/08/21 08:37 Acetaminophen Elixir 325 Mg/10.15 Ml Udc FEED TUBE 650 mg Q6H PRN Administration Pain Amlodipine Besylate 10 mg 03/31/21 13:20 04/08/21 08:32 Amlodipine Besylate 5 Mg Tablet FEED TUBE 10 mg DAILY RYLIE Administration Amoxicillin 1,000 mg 04/07/21 21:00 04/08/21 08:32 Amoxicillin 500 Mg Capsule FEED TUBE 1,000 mg Q12HR RYLIE Administration Aspirin 81 mg 04/07/21 15:25 04/08/21 08:32 Aspirin 81 Mg Chewable Tablet FEED TUBE 81 mg DAILY@0800 RYLIE Administration Baclofen 5 mg 04/04/21 21:00 04/07/21 21:13 Baclofen 5 Mg Tablet FEED TUBE 04/29/21 21:01 5 mg HS RYLIE Administration Bisacodyl 10 mg 03/30/21 14:31 04/03/21 17:40 Bisacodyl 10 Mg Suppository RECTAL 10 mg DAILY PRN Administration Constipation Citalopram Hydrobromide 20 mg 03/31/21 09:00 04/08/21 08:32 Citalopram Hydrobromide 20 Mg Tablet FEED TUBE 04/30/21 09:01 20 mg DAILY RYLIE Administration Clonazepam 1 mg 04/06/21 22:00 04/08/21 05:11 Clonazepam (*Crx) 0.5 Mg Tablet FEED TUBE 1 mg Q8HR RYLIE Administration Dextrose 12.5 gm 03/25/21 16:45 Dextrose 50% 25 Gm/50 Ml Syringe IV PUSH PRN PRN Hypoglycemia Protocol Divalproex Sodium 500 mg 04/08/21 14:00 Divalproex Sodium Sprinkle 125 Mg Cap.Dr QUIROGA Q8HR RYLIE Glucagon 1 mg 03/25/21 16:45 Glucagon For Inj 1 Mg Vial IM PRN PRN Hypoglycemia Protocol Glucose 15 gm 03/25/21 16:45 Glucose Oral Gel 15 Gm O
[2021-04-08 14:14] LABS: IgG Index, CSF 0.58
--- NOTE | 2021-04-08 14:55 | PC.NURSE ---
On 04/08/21, the student, [Daphne Curran ], provided care and [facility]. I have reviewed the student's documentation and agree with the findings.
[2021-04-08 17:32] LABS: Glucose Point of Care 226 mg/dl (65-105)
[2021-04-08 17:38] VITALS: BP 135/69; PULSE 104; RESP 22; TEMP 36.8; O2SAT 94
[2021-04-09 06:34] LABS: Albumin, CSF 25.3 mg/dL (8.0-42.0); Albumin, Serum 2.3 g/dL (3.5-5.2); IgG, CSF 4.4 mg/dL (0.8-7.7); Immunoglobulin G, Serum 686 mg/dL (600-1640); Myelin Basic Protein, CSF <2.0 mcg/L (2.0-4.0)
--- NOTE | 2021-04-27 11:09 | PC.NURSE ---
MS panel is all WNL. Dr. Vásquez aware.
--- NOTE | 2021-05-17 08:36 | PC.NURSE ---
Fungal and AFB cx are negative.
== END 2021-04-08 18:17 | DRG 58 ==
LOC: ANHED 14:15 → ANH3MED 17:12
PROVIDERS: Family Medicine; Internal Medicine; Internal Medicine Gastroenterology; Internal Medicine Nephrology; Admitting Provider Hospitalist; Emergency Provider Family Medicine; PCP Internal Medicine; Visit Provider Internal Medicine
PROC: 0DH63UZ Insertion of Feeding Device into Stomach, Percutaneous Approach (ICD-10-PCS; CPT 43246; principal; 2021-04-01 12:00)
DX: I67.5 Moyamoya disease (principal); I69.398 Other sequelae of cerebral infarction; G40.909 Epilepsy, unspecified, not intractable, without status epilepticus; I69.354 Hemiplegia and hemiparesis following cerebral infarction affecting left non-dominant side; Z79.82 Long term (current) use of aspirin; F32.9 Major depressive disorder, single episode, unspecified; I12.9 Hypertensive chronic kidney disease with stage 1 through stage 4 chronic kidney disease, or unspecified chronic kidney disease; E11.22 Type 2 diabetes mellitus with diabetic chronic kidney disease; N17.9 Acute kidney failure, unspecified; Z79.4 Long term (current) use of insulin; M62.82 Rhabdomyolysis; D63.1 Anemia in chronic kidney disease; D50.0 Iron deficiency anemia secondary to blood loss (chronic); D72.829 Elevated white blood cell count, unspecified; K26.4 Chronic or unspecified duodenal ulcer with hemorrhage; B96.81 Helicobacter pylori [H. pylori] as the cause of diseases classified elsewhere; N18.4 Chronic kidney disease, stage 4 (severe); E87.0 Hyperosmolality and hypernatremia; E86.0 Dehydration; Z22.39 Carrier of other specified bacterial diseases; I69.898 Other sequelae of other cerebrovascular disease; N39.0 Urinary tract infection, site not specified
CPT/HCPCS: 36415; 43246; 62328; 70450; 70551; 71045; 71250; 74176; 76770; 76775; 78707; 80048; 80053; 80069; 80164; 81001; 81025; 82040; 82042; 82140; 82550; 82570; 82607; 82728; 82746; 82784; 82945; 82948; 83540; 83550; 83605; 83735; 83873; 83916; 84100; 84146; 84156; 84157; 84300; 84443; 85025; 85027; 85610; 85730; 85999; 86140; 86592; 86617; 86787; 87015; 87040; 87070; 87077; 87081; 87086; 87088; 87102; 87116; 87186; 87205; 87206; 87255; 87497; 87529; 88108; 89051; 93005; 93306; 93880; 95816; 96361; 96365; 96366; 96375; 96376; 99285; A9270; A9562; C9803; G0378; G0379; J0131; J0171; J0360; J0690; J1644; J1815; J1940; J1953; J2001; J2060; J2270; J2704; J3360; J7030; J7070; J7120; U0003; U0005